=== PATIENT | male | born 1945 | race Caucasian/White ===

== ENCOUNTER 2016-09-26 12:55 | Inpatient (IN) ==
--- NOTE | 2016-09-26 13:04 | Emergency Department Note ---
START Narrative - START START: I examined this patient and my medical decision-making was reviewed with the STEEL CHECKER/PA/Advanced Practice Nurse/Resident Physician. I agree with the documented findings, disposition and treatment plan as described except to the extent set forth below. ED attending note: Patient seen with emergency medicine resident Dr CARMICHAEL. We independently evaluated the patient. We independently had [id number] contact with the patient. Please see a copy of his note for details of the history and physical, evaluation, management and disposition of this emergency Department patient. 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 Patient refused care at the other ED for concerns about "billing issues". Patient here for further evaluation. Patient says although he has had a headache is more concerned about being off balance. No recent medication changes and not on blood thinners. Patient normally walks unassisted over the past several days increasing weakness to the point that he could not get up to go to the bathroom last night because he was falling over". Neurologic examination shows symmetrical bilateral lower extremity about 4+. Normal reflexes. Normal heel pederson and finger to nose. But too weak to gait test. Concerned about posterior cerebral and cerebellar lesions. And also with circulation in the neck. Getting an MRI with and with contrast of the brain and angiogram the neck. Screening labs as well. Providing 45 minutes of critical care services for this patient. Disposition pending.
--- NOTE | 2016-09-26 13:05 | Emergency Department Note ---
Disposition Clinical Impression: History of colon cancer, History of cancer metastatic to brain, Unsteady gait, Unable to ambulate, CLIF (acute kidney injury) Headache Qualifiers: Headache type: unspecified Headache chronicity pattern: acute headache Intractability: not intractable Qualified Code(s): R51 - Headache Leukopenia Qualifiers: Leukopenia type: neutropenia Neutropenia type: unspecified Qualified Code(s): D70.9 - Neutropenia, unspecified Disposition: Admitted As Inpatient Condition: Fair Referrals: NONE,PCP [Non-Partnered Physician] - Forms: ED Satisfaction Letter Headache HPI - General Chief Complaint: ED Headache Stated Complaint: headache/weakness/cancer pt-colon w/mets brain Time Seen by Provider: 09/26/16 13:00 Source: patient, EMS Mode of arrival: EMS Limitations: no limitations Nursing Notes Reviewed: Yes Vital Signs Reviewed: Yes - History of Present Illness HPI Narrative: Patient is a 71-year-old male with past medical history of Parkinson's, colon cancer with metastases to the brain. He currently follows with Dr. Moreno and is underwent radiation and chemotherapy, most recent dosing was last month. He is unsure as to what chemotherapy he is using. He presents today due to headache and unstable gait. Patient states that he is usually able to get around fairly well by himself. Last night, he was trying to get to the bathroom and said that he was stumbling, felt like his legs were weak, was falling into things. He said that this is very unusual for him. He went to the ER at [place] and refuse treatment there and wanted to be transferred to [facility] for further care. He states that during that transfer, he developed a headache in the back of his head. Denies that it was sudden onset. No current numbness , tingling, vision changes, vertigo. He does admit to bilateral lower extremity weakness. Denies any changes in his Parkinson's medication recently. Denies starting any other new medicines. Denies that this has ever happened in the past. Denies any chest pain, shortness of breath, abdominal pain, nausea , vomiting, diarrhea, neck stiffness or pain, fevers. - Related Data Home Medications Medication Instructions Recorded Confirmed Carbidopa/Levodopa ER 50/200 1 each PO TID 04/23/16 09/26/16 [Sinemet ER 50-200 TAB] Ropinirole HCl [Requip] 0.5 mg PO TID 04/23/16 09/26/16 Ondansetron HCl 4 mg PO Q8HR PRN 07/16/16 09/26/16 Sennosides/Docusate Sodium 1 each PO DAILY PRN 07/16/16 09/26/16 [Senna-Docusate Sodium Tablet] Acetaminophen [Pain Relief] 2 tab PO Q4H PRN 08/25/16 09/26/16 Dexamethasone [Decadron] 4 mg PO DAILY 08/25/16 09/26/16 Famotidine [Heartburn Prevention] 20 mg PO HS 08/25/16 09/26/16 Ferrous Sulfate [Iron] 325 mg PO DAILY 08/25/16 09/26/16 Folic Acid 1 mg PO DAILY 08/25/16 09/26/16 Prochlorperazine Maleate 10 mg PO Q8HR PRN 09/26/16 09/26/16 [Compazine] Previous Rx's Medication Instructions Recorded Loperamide [Imodium] 2 mg PO AD PRN #30 capsule 08/04/16 Magic Mouthwash 5 ml PO Q4H PRN #240 ml 08/04/16 Capecitabine [Xeloda] 3 tab PO BID #84 tablet 09/04/16 Allergies Allergy/AdvReac Type Severity Reaction Status Date / Time No Known Allergies Allergy Verified 08/25/16 08:25 All systems ED: reviewed and negative except as stated. Constitutional: Denies: fever, chills Cardiovascular: Denies: chest pain Respiratory: Denies: dyspnea Gastrointestinal: Denies: abdominal pain, nausea, vomiting, diarrhea Musculoskeletal: Denies: back pain, neck pain Neurological: Reports: weakness. Denies: headache, numbness, paresthesias Headache PMH - Past Medical History Medical history: Reports: other (possiblity of parkison) Male Surgical History: Reports: other (Patient has had a remote abdominal surgery for "removal of an ulcer".) Psychiatric history: Reports: no psych history - Social History Smoking Status: Never smoker Alcohol use: Reports: none Drug use: Reports: none Physical Exam - General Limitations: no limitations General appearance: alert, in no apparent distress - Head Head exam: atraumatic, normocephalic, normal inspection, other (No tenderness to palpation of the posterior occiput, no lesions) - Eye Eye exam: Present: normal appearance, PERRL, EOMI - ENT ENT exam: normal exam, normal oropharynx, mucous membranes moist - Neck Neck exam: Present: normal inspection, full ROM, trachea midline. Absent: tenderness, meningismus - Chest Chest inspection: Present: normal inspection, symmetric chest wall rise - Respiratory Respiratory exam: Present: normal lung sounds bilaterally - Cardiovascular Cardiovascular exam: Present: regular rate, normal rhythm, normal heart sounds - Abdominal Exam Abdominal exam: Present: soft, Non-Tender. Absent: tenderness, distention, guarding, rebound, rigidity - Extremities Exam Extremities exam: Present: normal inspection, full ROM. Absent: tenderness, pedal edema - Neurological Exam Neurological exam: Present: alert, oriented X3, CN II-XII intact, other (Mild weakness of bilateral lower extremities, 4 out of 5 strength in hip flexion, dorsiflexion and plantar flexion of both feet bilaterally) - Psychiatric Psychiatric exam: Present: normal affect, normal mood - Skin Skin exam: Present: warm, dry, intact, normal color Course Course Narrative: Vitals stable currently. Physical exam shows no focal neurologic deficits. Mild weakness of bilateral lower extremities, 4 out of 5 strength in hip flexion , dorsiflexion and plantar flexion of both feet bilaterally . Proprioception is intact. Patient currently rates his posterior occiput headache mild. He has declined any medication for headache at this time. He is agreeable with MRI of the head and neck for further assessment, especially since he has brain metastases. We will also obtain basic blood work. 14:31 spoke with patient's , she states that the patient is on a daily oral chemotherapy pill and also has injections/IV chemotherapy. She says that he had his most recent chemotherapy about a week ago. This is different from what the patient had reported. She also reports that the patient uses a walker at home but usually has no difficulty with using walker. She does admit that the patient has had increased work showed a weakness, difficulty with balance over the past 2-3 days. She says that he has had home health in the past but this was recently discontinued about a week ago. She says that she is no longer able to take care of him, especially with his worsening large area weakness. White blood cell count 2.3. Mildly anemic. CLIF present on BMP. Patient currently in MRI. 16:01 MRI the brain shows previously seen mass/lesion. No acute intracranial abnormality. Neck MRA as negative for any evidence of significant stenosis in the vertebral or carotid circulation. Due to difficulty with ambulation, headache, history of cancer with brain mets, will admit to medicine for further care. Brain MRI 09/26/16 13:02 IMPRESSION: Heterogeneously enhancing mass involving the cerebellar vermis, measuring 2.6 x 2.2 x 2.6 cm, mildly decreased in size since the prior study. Interval mildly decreased surrounding vasogenic edema. Findings are likely related to neoplasm with treatment response. No new abnormal intracranial enhancement. 1.5 cm nonenhancing area of T2/FLAIR hyperdensity in the cortical subcortical left frontal lobe, grossly stable. This finding is nonspecific, may be related to old infarction, posttreatment changes and gliosis. Attention to this region on subsequent follow-up is recommended. No acute intracranial abnormality. Mild parenchymal volume loss. Mild chronic microvascular disease. D/ / Cj Londono MD / Cj Londono MD Interpreting Provider: Cj Londono MD Neck MRA 09/26/16 13:04 IMPRESSION: No evidence of significant stenosis or other disease in the vertebral or carotid circulation. D/ / Mee Schofield MD / Mee Schofield MD Interpreting Provider: Mee Schofield MD Vital Signs Temperature 97.8 F 09/26/16 12:55 Pulse Rate 82 09/26/16 12:55 Respiratory Rate 20 09/26/16 12:55 Blood Pressure 124/81 09/26/16 12:55 O2 Sat by Pulse Oximetry 98 09/26/16 12:55 Temperature 97.8 F 09/26/16 12:55 Pulse Rate 92 09/26/16 16:00 Respiratory Rate 18 09/26/16 16:00 Blood Pressure 120/92 09/26/16 16:00 O2 Sat by Pulse Oximetry 97 09/26/16 16:00 Oxygen Delivery Oxygen Delivery Room Air Headache - MDM Narrative Medical decision making narrative: MRI the brain shows previously seen mass/lesion. No acute intracranial abnormality. Neck MRA as negative for any evidence of significant stenosis in the vertebral or carotid circulation. Due to difficulty with ambulation, headache, history of cancer with brain mets, will admit to medicine for further care. - Medical Records Medical records reviewed: Yes I reviewed the patient's medical records. - Lab Data Lab results reviewed: Yes I reviewed the patient's lab results. Result diagrams: 09/26/16 13:22 09/26/16 13:22 Lab Results 09/26/16 09/26/16 09/26/16 Range/Units 13:22 13:22 13:22 WBC 2.3 L (4.3-11.1) K/mcL RBC 4.91 (4.19-5.50) M/mcL Hgb 11.8 L (12.9-16.9) g/dL Hct 38.9 (37.5-50.1) % MCV 79.2 L (83.0-100.0) fL MCH 24.0 L (28.0-33.3) pg MCHC 30.3 L (31.6-35.5) g/dL RDW 29.1 H (11.5-14.5) % Plt Count 365 (140-400) K/mcL MPV 8.4 L (9.4-12.4) fL Seg Neutrophils % 48.0 % Band Neutrophils % 8.0 H (0-4) % Lymphocytes % 42.0 % Monocytes % 2.0 % Neutrophils # 1.3 L (1.6-8.9) K/mcL Lymphocytes # 1.0 (0.6-4.6) K/mcL Monocytes # 0.1 (0.0-1.3) K/mcL Platelet Estimate Normal (Normal) Anisocytosis 1+ A (Not Present) Microcytosis Present A (Not Present) Macrocytosis Present A (Not Present) PT 12.6 H (9.4-12.1) Seconds INR 1.2 APTT 29.2 (26.0-36.0) Seconds Sodium 138 (136-145) mEq/L Potassium 4.2 (3.5-4.5) mEq/L Chloride 103 (98-109) mEq/L Carbon Dioxide 22 (19-29) mEq/L BUN 25 (8-26) mg/dL Creatinine 1.50 H (0.72-1.25) mg/dL Est GFR ( Amer) 56 L (> 60) Est GFR (Non-Af Amer) 46 L (> 60) BUN/Creatinine Ratio 17 (6-26) Glucose 85 (70-99) mg/dL Calculated Osmolality 290 (280-300) Calcium 8.6 (8.6-10.8) mg/dL - Radiology Data Radiology results reviewed: Yes I reviewed the patient's radiology results. Brain MRI 09/26/16 13:02 IMPRESSION: Heterogeneously enhancing mass involving the cerebellar vermis, measuring 2.6 x 2.2 x 2.6 cm, mildly decreased in size since the prior study. Interval mildly decreased surrounding vasogenic edema. Findings are likely related to neoplasm with treatment response. No new abnormal intracranial enhancement. 1.5 cm nonenhancing area of T2/FLAIR hyperdensity in the cortical subcortical left frontal lobe, grossly stable. This finding is nonspecific, may be related to old infarction, posttreatment changes and gliosis. Attention to this region on subsequent follow-up is recommended. No acute intracranial abnormality. Mild parenchymal volume loss. Mild chronic microvascular disease. D/ / Cj Londono MD / Cj Londono MD Interpreting Provider: Cj Londono MD Neck MRA 09/26/16 13:04 IMPRESSION: No evidence of significant stenosis or other disease in the vertebral or carotid circulation. D/ / Mee Schofield MD / Mee Schofield MD Interpreting Provider: Mee Schofield MD - EKG Data EKG attestation: Yes I reviewed and interpreted this EKG. EKG results narrative: 09/26/2016 at 13:10. Normal sinus rhythm. Rate 73. TN 171. QRS 96. QTC 395. Normal axis. No acute ST elevation or depression. No changes from previous EKG on 04/25/2013. S.B.A.R. - S.B.A.R. Situation: Demographics, MOA Background: Presenting Complaint, Relevant PMH, Meds, & Allergies Assessment: Vital Signs, Course and respsone to treatment, Exam Concerns, Patient/Family Expectation, Pertinant Lab Results Recommendation: Barrier(s) to disposition, Recommendation based on pending studies, treatments, or consults Kelly Report Given to: Dr. Molly Mendoza Repor Time: 16:55
[2016-09-26 13:28] LABS: Hematocrit 38.9 % (37.5-50.1); Hemoglobin 11.8 g/dL (12.9-16.9); Mean Corpuscular HGB Conc 30.3 g/dL (31.6-35.5); Mean Corpuscular Volume 79.2 fL (83.0-100.0); Mean Platelet Volume 8.4 fL (9.4-12.4); Platelet Count 365 K/mcL (140-400); Red Blood Count 4.91 M/mcL (4.19-5.50); Red Cell Distribution Width 29.1 % (11.5-14.5)
[2016-09-26 13:34] LABS: INR 1.2; Prothrombin Time 12.6 Seconds (9.4-12.1)
[2016-09-26 13:36] LABS: Activated Partial Thrombo Time 29.2 Seconds (26.0-36.0)
[2016-09-26 13:43] LABS: Calcium 8.6 mg/dL (8.6-10.8); Potassium 4.2 mEq/L (3.5-4.5)
[2016-09-26 13:59] LABS: Monocytes # 0.1 K/mcL (0.0-1.3); Neutrophils # 1.3 K/mcL (1.6-8.9)
[2016-09-26 14:00] LABS: Anisocytosis 1+ (Not Present); Macrocytosis Present (Not Present); Platelet Estimate Normal (Normal)
[2016-09-26 14:01] LABS: Microcytosis Present (Not Present)
[2016-09-26] MEDS ORDERED: 0.9 % Sodium Chloride 1,000 ML IVC ONE (16:04)
[2016-09-26] MEDS ORDERED: Naloxone 0.4 MG/ML INJ IVP PRN (18:01)
[2016-09-26] MEDS ORDERED: Ondansetron 4 MG/2 ML VIAL IVP PRN (18:04)
[2016-09-26] MEDS ORDERED: Ondansetron ODT 4 MG TAB.RAPDIS PO PRN (18:18)
[2016-09-26] MEDS ORDERED: Magic Mouthwash 10 ML UD Cup PO PRN (18:18)
[2016-09-26] MEDS ORDERED: Sennosides/Docusate Sodium TABLET PO PRN (18:18)
[2016-09-26] MEDS ORDERED: *HR* HYDROcodone/Acet 5/325 mg TABLET PO PRN (18:19)
--- NOTE | 2016-09-26 18:24 | Internal Med History&Physical ---
<Lizabeth Menjivar - Last Filed: 09/26/16 18:57> Date of Encounter: 09/26/16 Time of Encounter: 18:21 Assessment and Plan (1) CLIF (acute kidney injury) Current visit: Yes Status: Acute 1 patient is receiving chemotherapy has had poor oral intake. Presently his creatinine is 1.5-. His baseline as 1.08-1.2. We will give gentle IV hydration 2 monitor intake and output and daily weights 3 avoid nephrotoxins (2) Weakness Current visit: Yes Status: Acute Patient has been experiencing generalized weakness and difficulty ambulating. He does have a history of Parkinson's as well as is receiving chemotherapy related to colon cancer with brain metastasis. He has poor oral intake due to nausea. We will give IV fluids 2 patient's high risk for falls. Fall Precautions 3 consult PT OT (3) History of cancer metastatic to brain Current visit: Yes Status: Acute 1 we will continue with patient's current chemotherapy treatment patient will follow-up as outpatient for continued chemotherapy 2 we will consult oncology 3 continue with Decadron (4) Headache Current visit: Yes Status: Acute 1 presently headache has resolved. MRI of head was negative for any new intracranial abnormalities or edema. We will continue with Decadron 2 Tylenol and [place] as needed for pain 3 Zofran as stated for nausea Qualifiers: Headache type: unspecified Headache chronicity pattern: episodic headache Intractability: not intractable Qualified Code(s): R51 - Headache (5) Parkinsons disease Current visit: No Status: Acute 1 we will continue with carbidopa levodopa 2 consult PT/OT 3 fall precautions (6) DVT prophylaxis Current visit: Yes Status: Acute [facility] Internal Medicine - H&P: HPI Chief complaint: weakness JOHN Admitted From: Emergency Dept Plans for Post Hospital Care: Home History of present illness: Mr. 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 In July patient was seen by our oncology group and was sent to [place] due to concern of impending hydrocephaly. While at [place] he underwent radiation treatment as well and was initiated on chemotherapy. He was discharged home and was receiving physical therapy at home. With that he was doing well but on physical therapy was completed patient began to decline. He was weak unable to ambulate. He normally uses a walker to ambulate however he is stumbling he feels as if his legs are not strong enough to support him. He has been experiencing intermittent headaches which began at the base of his skull radiating to the top of his head. There are no vision changes, he is a little bit lightheaded denies numbness tingling vertigo. He does admit to some nausea vomiting and diarrhea however he states it has been occurring ever since he started his chemotherapy. He has had approximate 60 pound weight loss in the past 2 months. He denies any shortness of breath chest pain abdominal pain fevers or chills. He presented to the [place] [facility] refused treatment and requests to be transferred to this facility. According to ER records lab work did reveal the ABC 2.3 potassium is 4.2 creatinine was 1.5 GFR is 46 PT was 12.[address] of head revealed Heterogeneously enhancing mass involving the cerebellar vermis mildly decreased in size since the prior study. Interval mildly decreased surrounding vasogenic edema. No new abnormal intracranial enhancement. He is given IV fluids Patient has been admitted for further workup and evaluation. Presently patient denies any chest pain or shortness of breath. He does not appear to be respiratory distress. His lung sounds are clear. Heart sounds S1 and S2 with no rubs clicks, murmurs noted. Abdomen soft nontender. He denies any headache at this time he is neurologically intact simple commands equal strength in all 4 extremities, cranial nerves II through XII are intact. He is hemodynamically stable at this time.I reviewed this case with Dr Barnes who agrees with plan Past Med Surg Social Fam HX - Past Medical History Medical history: other (possiblity of parkisons) Psychiatric history: no psych history - Past Surgical History Surgical History: other (Patient has had a remote abdominal surgery for " removal of an ulcer".) - Social History Smoking Status: Never smoker Smokeless Tobacco Status: No Alcohol use: none Drug use: none - Family History Sister Hx Family Cancer: Yes (Pancreatic cancer) Internal Medicine - H&P: Meds Carbidopa/Levodopa ER 50/200 [Sinemet ER 50-200 TAB] 1 each PO TID 04/23/16 [ History] Ropinirole HCl [Requip] 0.5 mg PO TID 04/23/16 [History] Ondansetron HCl 4 mg PO Q8HR PRN 07/16/16 [History] Sennosides/Docusate Sodium [Senna-Docusate Sodium Tablet] 1 each PO DAILY PRN [History] Loperamide [Imodium] 2 mg PO AD PRN #30 capsule 08/04/16 [Rx] Magic Mouthwash 5 ml PO Q4H PRN #240 ml 08/04/16 [Rx] Acetaminophen [Pain Relief] 2 tab PO Q4H PRN 08/25/16 [History] Dexamethasone [Decadron] 4 mg PO DAILY 08/25/16 [History] Famotidine [Heartburn Prevention] 20 mg PO HS 08/25/16 [History] Ferrous Sulfate [Iron] 325 mg PO DAILY 08/25/16 [History] Folic Acid 1 mg PO DAILY 08/25/16 [History] Capecitabine [Xeloda] 3 tab PO BID #84 tablet 09/04/16 [Rx] Prochlorperazine Maleate [Compazine] 10 mg PO Q8HR PRN 09/26/16 [History] Allergies No Known Allergies Allergy (Verified 08/25/16 08:25) All Systems PM: A 10-system review of systems was performed and is negative for pertinent findings except as documented above in the HPI. - Constitutional Constitutional: anorexia, fatigue, weakness, weight loss - EENT Eyes: no change in vision, no discharge, no pain, no photophobia Nose, mouth and throat: no dysphagia, no nasal discharge, no neck pain, no sore throat - Cardiovascular Cardiovascular ROS IM: no chest pain, no diaphoresis, no dyspnea, no lightheadedness, no palpitations, no syncope - Respiratory Respiratory: no cough, no dyspnea, no wheezing, no excessive phlegm production - Gastrointestinal Gastrointestinal: diarrhea, nausea, vomiting, no abdominal pain, no hematemesis , no hematochezia, no melena - Musculoskeletal Musculoskeletal ROS IM: no numbness, no tingling - Neurological Neurological ROS: frequent falls, no confusion, no convulsions, no focal weakness, no numbness, no tingling, no tremor(s) - Constitutional Vitals: Temp Pulse Resp BP Pulse Ox 97.8 F 85 20 156/72 98 09/26/16 12:55 09/26/16 17:00 09/26/16 18:05 09/26/16 18:05 09/26/16 17:00 General appearance: Present: cachectic, A&O X 3, answers questions appropriately - Head Head exam: Present: atraumatic, normocephalic - Eye Eye exam: Present: PERRL, conjuntiva pink, sclera anicteric Pupils: Present: PERRL - Neck Neck exam general surgery: Present: supple, trachea midline. Absent: lymphadenopathy - Respiratory Respiratory exam: Present: CTAB. Absent: accessory muscle use, rales, rhonchi, wheezes - Cardiovascular Cardiovascular exam: Present: RRR, +S1, +S2. Absent: diastolic murmur, gallop, rubs, systolic murmur - GI/Abdominal GI/Abdominal exam: Present: normal bowel sounds, soft, no peritoneal signs. Absent: distended, tenderness - Extremities Exam Extremities exam: Present: warm, radial pulses palpable and symetrical. Absent : calf tenderness, cyanotic, pedal edema - Neurological Exam Neurological exam: Present: CN II-XII intact, oriented X3, no focal deficits. Absent: pronater drift, facial droop, speech deficit - Skin Skin exam: Present: dry, intact Internal Med - H&P Results - Labs CBC & Chem 7: 09/26/16 13:22 09/26/16 13:22 - EKG Data Prior EKG available for review: yes When compared to previous EKG: there is no significant change Interpretation IM: normal EKG - Diagnostic Studies Other Images Additional comments: Brain MRI 09/26/16 13:02 IMPRESSION: Heterogeneously enhancing mass involving the cerebellar vermis, measuring 2.6 x 2.2 x 2.6 cm, mildly decreased in size since the prior study. Interval mildly decreased surrounding vasogenic edema. Findings are likely related to neoplasm with treatment response. No new abnormal intracranial enhancement. 1.5 cm nonenhancing area of T2/FLAIR hyperdensity in the cortical subcortical left frontal lobe, grossly stable. This finding is nonspecific, may be related to old infarction, posttreatment changes and gliosis. Attention to this region on subsequent follow-up is recommended. No acute intracranial abnormality. Mild parenchymal volume loss. Mild chronic microvascular disease. D/ / Cj Londono MD / Cj Londono MD Interpreting Provider: Cj Londono MD Neck MRA 09/26/16 13:04 IMPRESSION: No evidence of significant stenosis or other disease in the vertebral or carotid circulation. D/ / Mee Schofield MD / Mee Schofield MD Interpreting Provider: Mee Schofield MD <Inder Barnes - Last Filed: 09/26/16 19:07> Date of Encounter: 09/26/16 Internal Medicine - H&P: HPI History of present illness: Mr. Collado is a 71 year old male All Systems PM: A 10-system review of systems was performed and is negative for pertinent findings except as documented above in the HPI. - Constitutional Vitals: Temp Pulse Resp BP Pulse Ox 98.0 F 98 16 138/82 97 09/26/16 18:49 09/26/16 18:49 09/26/16 18:49 09/26/16 18:49 09/26/16 18:49 Internal Med - H&P Results - Labs CBC & Chem 7: 09/26/16 13:22 09/26/16 13:22 - Attending Attestation I have personally performed a face to face evaluation on this patient and I discussed the assessment and plan with the nurse practitioner. I have reviewed and agree with the documented care plan. History and Exam by me shows: Mr. 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 In July patient was seen by our oncology group and was sent to [place] due to concern of impending hydrocephaly. While at [place] he underwent radiation treatment as well and was initiated on chemotherapy. He was discharged home and was receiving physical therapy at home. With that he was doing well but on physical therapy was completed patient began to decline. He was weak unable to ambulate. He normally uses a walker to ambulate however he is stumbling he feels as if his legs are not strong enough to support him. He has been experiencing intermittent headaches which began at the base of his skull radiating to the top of his head. There are no vision changes, he is a little bit lightheaded denies numbness tingling vertigo. Gen:A, A, O X 3 Chest: DBS b/l basal regions.No crackles, no rales Heart : S1 S2 + , RRR, No murmurs Abd: Soft, NT..Healed surgical scar a.p 1. Generalized weakness / ambulatory dysfunction 2. Severe physical deconditioning 3. Colon cancer with mets in brain PT / OT eval Symptomatic and supportive care resume home med PO steroids Consulted Heme Onc for further eval
[2016-09-26] MEDS: 0.9 % Sodium Chloride 1,000 ML IVC SCH (18:51)
[2016-09-26] MEDS: rOPINIRole 0.25 MG TABLET PO SCH (22:54)
[2016-09-26] MEDS: Carbidopa/Levodopa ER 50/200 TABLET PO SCH (22:54)
[2016-09-26] MEDS: Famotidine 20 MG TABLET PO SCH (22:54)
[2016-09-26] MEDS: CAPECITABINE PO SCH (22:55)
[2016-09-27 01:23] LABS: Hematocrit 35.5 % (37.5-50.1); Hemoglobin 10.5 g/dL (12.9-16.9); Mean Corpuscular HGB Conc 29.6 g/dL (31.6-35.5); Mean Corpuscular Hemoglobin 23.7 pg (28.0-33.3); Mean Corpuscular Volume 80.1 fL (83.0-100.0); Mean Platelet Volume 9.1 fL (9.4-12.4); Nucleated Red Blood Cells 0.9 /100 WBC (0); Platelet Count 341 K/mcL (140-400); Red Blood Count 4.43 M/mcL (4.19-5.50); Red Cell Distribution Width 29.2 % (11.5-14.5)
[2016-09-27 01:37] LABS: BUN/Creatinine Ratio 17 (6-26); Blood Urea Nitrogen 22 mg/dL (8-26); Carbon Dioxide 25 mEq/L (19-29); Chloride 106 mEq/L (98-109); Glucose 122 mg/dL (70-99); Magnesium 1.9 mg/dL (1.6-2.6); Osmolality,Calculated 291 (280-300); Potassium 3.9 mEq/L (3.5-4.5); Sodium 138 mEq/L (136-145); eGFR For African Americans > 60 (> 60); eGFR For Non-African Americans 53 (> 60)
[2016-09-27 02:08] LABS: Eosinophils # 0.2 K/mcL (0.0-0.6); Lymphocytes # 0.9 K/mcL (0.6-4.6); Monocytes # 0.1 K/mcL (0.0-1.3); Neutrophils # 0.9 K/mcL (1.6-8.9)
[2016-09-27 02:09] LABS: Acanthocytes 1+ (Not Present); Anisocytosis 3+ (Not Present); Platelet Clumps Few (Not Present); Platelet Estimate Normal (Normal)
[2016-09-27 02:10] LABS: Ovalocytes 1+ (Not Present); Polychromasia 1+ (Not Present)
[2016-09-27] MEDS: 0.9 % Sodium Chloride 1,000 ML IVC SCH (05:05)
[2016-09-27] MEDS: *HR* Enoxaparin 40 MG/0.4 ML SYRINGE SQ SCH (05:06)
--- NOTE | 2016-09-27 08:22 | Oncology Inp Consult Note ---
Date of Encounter: 09/27/16 Time of Encounter: 07:50 - Data of Consult Patient: known to practice within the last 3 years Consult date: 09/27/16 Requesting Physician: Ayleen Winter MD Primary Care Provider: Esdras Jacob MD - Consult Narrative Reason for consult: Metastatic colon cancer, brain metastasis. History of present illness: Mr. Collado is a 71 year old who is established with my partner Dr. Cherise Moreno for ongoing management of metastatic colon cancer with liver and brain involvement. I have summarized patient's heme/onc background below based on Dr. Moreno's most recent office report from 09/07/16. Diagnosis: Metastatic colon cancer. 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 Colonoscopy by Dr. Tobias 04/24/2016 showed actively bleeding mass in the cecum causing 50% section of the circumference He recommended right hemicolectomy. Biopsy at that time showed tubular adenoma. Meanwhile patient develops an abdominal obstruction symptoms and was seen in [facility] Right hemicolectomy 06/03/2016 showed 6.5 cm tumor grade 2. Proximal distal and radial margins free of tumor. The tumor does invade pericecal fat and into appendix. 3 out of 15 lymph nodes involved. Resection of liver lesion showed metastatic adenocarcinoma PT4B, N1b,M1b stage IV with metastatic adenocarcinoma in the liver and umbilical skin His hemoglobin was around 7 did not improve with iron pills.. IV injectafer one dose on 07/21/2016. Hemoglobin improved to [address] abd/pel from 06/02/16 shows pulmonary hepatic,gastric, mesentric aisha, and peritoneal metastatic disease with trace malignant ascites. 1.4cm x 1.2cm cavitary nodule in the perihilar left lower lobe A PET scan 08/05/2016 posterior fossa brain metastases 3.6 x 2.4 cm. The communicated with him. He is asymptomatic and does not want to go in the hospital. Also it showed worsening of liver metastasis since May 2016 and hypermetabolic peritoneal carcinomatosis. Multiple pulmonary nodules with SUV 4 consistent with lung metastasis also uptake left acetabulum compatible with metastatic disease and he is asymptomatic with that MRI brain done without contrast on 2016 lobulated heterogeneously enhancing mass in the region of left vermis 3 cm surrounding vasogenic edema and effacement of fourth ventricle. Prior infarct left parietal lobe. He was evaluated by Dr. Llanes radiation oncology on 08/10/2016 and refered to [facility] for possible surgery because of the location of tumor According to the patient he received 1 dose of radiation and was given a tapering dose of Decadron. Currently on Decadron 4 mg once a day which we will continue. He denied headaches. Palliative chemotherapy Cycle will be repeated every 3 weeks Xeloda 1.5 g by mouth twice a day day one through 14. (Current creatinine clearance 52. Creatinine has improved to 1.2 on 08/04/2016 from 1.5 range If creatinine clearance drops will reduce Xeloda to 1 g twice a day irinotecan 150 mg/m day 1 Avastin. 7.5 mg per KG D1 Plan is to give chemotherapy until response or toxicity. After 6 months or less May consider maintenance treatment depending on his response Cycle 1 minus xeloda on 08/04/16 due to financial assistance delay. Cycle 2 08/25/2016. He got Xeloda prescription filled and started taking it this morning We will hold Avastin for cycle 2 because of brain metastasis Cycle # 3 09/15/16- irinotecan and oral Xeloda--Avastin held due to brain metastases with vasogenic edema. Patient is currently hospitalized for progressive weakness, worsening headaches associated with acute kidney injury. He reports compliance with Xeloda and has been having frequent loose bowel movements 2-3 times a day for the last 4-5 days. Oncology is consulted re: patient's underlying colon cancer with brain metastasis. On reviewing his records, he was advised of his last visit to increase dexamethasone dose to 4 mg by mouth twice a day from previous of once daily due to persistent headaches attributed to brain metastasis and vasogenic edema. Patient seen and examined at bedside. Chest reviewed for details of ongoing care by hospitalist team which is much appreciated. He reports feeling somewhat better since admission and feels like he is making steady progress back towards his usual baseline. Brain MRI on admission showed decreasing vasogenic edema around his known cerebellar vermis metastasis which has also decreased in size indicating treatment effect. Lab work at presentation showed bicytopenia with WBC of 2.2 and hemoglobin of 10.5 both decreased since his previous from 09/15/16 when he received his last dose of irinotecan and started concurrent cycle of Xeloda. Xeloda is on hold during his hospitalization appropriately. Anemia is macrocytic.. He has not noticed any melena or rectal bleeding. He does have an underlying history of Parkinson's disease for the last few years and is established with neurology for ongoing management. He feels like his disease is controlled with current measures. He reports that he was able to ambulate up until her recent diagnosis of brain metastasis. He subsequently had increasing difficulty. Rest of past medical, surgical, family, social history detailed below and verified with patient today. Review of systems: 12 point review of systems performed with patient and positive findings noted in history of present illness. All other systems are negative: Physical exam: Vital Signs Temp 97.8 F 09/27/16 07:35 Pulse 73 09/27/16 07:35 Resp 18 09/27/16 04:18 BP 115/73 09/27/16 07:35 Pulse Ox 98 09/27/16 07:35 GENERAL: Mildly lethargic. Oriented 3. Chronically ill and frail appearing. Mental Status: Affect appropriate for circumstances HEENT: Sclerae anicteric. No mucositis or thrush. No other oral or pharyngeal lesions or erythema. Skin: No rashes or petechiae. No evidence of skin malignancy Lymph nodes: No cervical, supraclavicular, axillary, or inguinal adenopathy. Lungs: Clear to auscultation bilaterally. Clear to percussion bilaterally. Cardiovascular: Regular rate and rhythm. No gallops, murmurs, or rubs. Abdomen: Soft, nontender; No organomegaly or masses palpable. Extremities: No edema. No calf swelling or tenderness. No joint deformity. Neurologic: Mildly lethargic, Generalized tremors no focal weakness or sensory abnormalities. Results: Laboratory Last Values WBC 2.2 K/mcL (4.3-11.1) L 09/27/16 00:52 RBC 4.43 M/mcL (4.19-5.50) 09/27/16 00:52 Hgb 10.5 g/dL (12.9-16.9) L 09/27/16 00:52 Hct 35.5 % (37.5-50.1) L 09/27/16 00:52 MCV 80.1 fL (83.0-100.0) L 09/27/16 00:52 MCH 23.7 pg (28.0-33.3) L 09/27/16 00:52 MCHC 29.6 g/dL (31.6-35.5) L 09/27/16 00:52 RDW 29.2 % (11.5-14.5) H 09/27/16 00:52 Plt Count 341 K/mcL (140-400) 09/27/16 00:52 MPV 9.1 fL (9.4-12.4) L 09/27/16 00:52 Seg Neutrophils % 36.0 % 09/27/16 00:52 Band Neutrophils % 6.0 % (0-4) H 09/27/16 00:52 Lymphocytes % 40.0 % 09/27/16 00:52 Monocytes % 6.0 % 09/27/16 00:52 Eosinophils % 10.0 % 09/27/16 00:52 Basophils % 2.0 % 09/27/16 00:52 Neutrophils # 0.9 K/mcL (1.6-8.9) L 09/27/16 00:52 Lymphocytes # 0.9 K/mcL (0.6-4.6) 09/27/16 00:52 Monocytes # 0.1 K/mcL (0.0-1.3) 09/27/16 00:52 Eosinophils # 0.2 K/mcL (0.0-0.6) 09/27/16 00:52 Basophils # 0.0 K/mcL (0.0-0.2) 09/27/16 00:52 Nucleated RBCs/100 WBC 0.9 /100 WBC (0) H 09/27/16 00:52 Platelet Estimate Normal (Normal) 09/27/16 00:52 Clumped Platelets Few (Not Present) A 09/27/16 00:52 Polychromasia 1+ (Not Present) A 09/27/16 00:52 Anisocytosis 3+ (Not Present) A 09/27/16 00:52 Microcytosis Present (Not Present) A 09/26/16 13:22 Macrocytosis Present (Not Present) A 09/26/16 13:22 Ovalocytes 1+ (Not Present) A 09/27/16 00:52 Acanthocytes (Spur) 1+ (Not Present) A 09/27/16 00:52 PT 12.6 Seconds (9.4-12.1) H 09/26/16 13:22 INR 1.2 09/26/16 13:22 APTT 29.2 Seconds (26.0-36.0) 09/26/16 13:22 Sodium 138 mEq/L (136-145) 09/27/16 00:52 Potassium 3.9 mEq/L (3.5-4.5) 09/27/16 00:52 Chloride 106 mEq/L (98-109) 09/27/16 00:52 Carbon Dioxide 25 mEq/L (19-29) 09/27/16 00:52 BUN 22 mg/dL (8-26) 09/27/16 00:52 Creatinine 1.33 mg/dL (0.72-1.25) H 09/27/16 00:52 Est GFR ( Amer) > 60 (> 60) 09/27/16 00:52 Est GFR (Non-Af Amer) 53 (> 60) L 09/27/16 00:52 BUN/Creatinine Ratio 17 (6-26) 09/27/16 00:52 Glucose 122 mg/dL (70-99) H 09/27/16 00:52 Calculated Osmolality 291 (280-300) 09/27/16 00:52 Calcium 8.0 mg/dL (8.6-10.8) L 09/27/16 00:52 Magnesium 1.9 mg/dL (1.6-2.6) 09/27/16 00:52 Troponin I 0.02 ng/mL (0-0.03) 09/27/16 00:52 Radiographic studies: I personally reviewed and interpreted patient's most recent imaging studies dated 09/26/16. I discussed the findings with the patient today. Brain MRI 09/26/16 13:02 IMPRESSION: Heterogeneously enhancing mass involving the cerebellar vermis, measuring 2.6 x 2.2 x 2.6 cm, mildly decreased in size since the prior study. Interval mildly decreased surrounding vasogenic edema. Findings are likely related to neoplasm with treatment response. No new abnormal intracranial enhancement. 1.5 cm nonenhancing area of T2/FLAIR hyperdensity in the cortical subcortical left frontal lobe, grossly stable. This finding is nonspecific, may be related to old infarction, posttreatment changes and gliosis. Attention to this region on subsequent follow-up is recommended. No acute intracranial abnormality. Mild parenchymal volume loss. Mild chronic microvascular disease. D/ / Cj Londono MD / Cj Londono MD Interpreting Provider: Cj Londono MD Neck MRA 09/26/16 13:04 IMPRESSION: No evidence of significant stenosis or other disease in the vertebral or carotid circulation. D/ / Mee Schofield MD / Mee Schofield MD Interpreting Provider: Mee Schofield MD Impression/recommendations: Metastatic colorectal cancer: Liver and brain involvement. Currently on treatment with Xeloda plus irinotecan plus Avastin. Started most recent cycle of chemotherapy on 09/15/16. Avastin is on hold due to recent diagnosis of brain metastases with vasogenic edema. He appears to be doing fairly well from a colorectal cancer standpoint is not having any symptoms attributable to colorectal cancer at this time. Encounter for chemotherapy management: Diarrhea is likely related to ongoing Xeloda therapy. Appropriate, he is also followed at this time I would recommend to hold off since he has only a few days left to completing his 2 week cycle of treatment. Anticipated improvement in diarrhea over the coming days. Generalized weakness may be related to recent chemotherapy although I suspect that some contusion from patient's underlying Parkinson's disease. We'll monitor for improvement. I agree with PT OT consult to evaluate and treat. Difficulty walking: Maybe related to underlying Parkinson's disease but they may also be contribution from patient's cerebellar vermis metastasis which is improved on most recent imaging. We'll monitor for continued improvement. He is on steroids for vasogenic edema. Please increase dexamethasone to 4 mg by mouth twice a day. This was most recent recommended dose by Dr. Moreno from 12/15 due to increasing vasogenic edema. This should also help his headaches. Regarding anemia and leukopenia: Likely related to recent Xeloda therapy. Microcytic anemia may also be related to chemotherapy or iron deficiency. Recommend anemia workup including: Reticulocyte count, iron panel, ferritin level, B12, folate, TSH, T4, LDH to look for treatable hematinic deficiencies etc. that may be contributing to patient's cytopenias. We'll follow the patient peripherally with you during this hospitalization. Please call with interval questions. Thank you for your excellent ongoing care for allowing us to see him while in- house. Past Med Surg Social Fam HX - Past Medical History Medical history: other Psychiatric history: no psych history - Past Surgical History Surgical History: other - Social History Smoking Status: Never smoker Smokeless Tobacco Status: No Alcohol use: none Drug use: none - Family History Sister Hx Family Cancer: Yes (Pancreatic cancer) Medications and Allergies Carbidopa/Levodopa ER 50/200 [Sinemet ER 50-200 TAB] 1 each PO TID 04/23/16 [ History] Ropinirole HCl [Requip] 0.5 mg PO TID 04/23/16 [History] Ondansetron HCl 4 mg PO Q8HR PRN 07/16/16 [History] Sennosides/Docusate Sodium [Senna-Docusate Sodium Tablet] 1 each PO DAILY PRN [History] Loperamide [Imodium] 2 mg PO AD PRN #30 capsule 08/04/16 [Rx] Magic Mouthwash 5 ml PO Q4H PRN #240 ml 08/04/16 [Rx] Acetaminophen [Pain Relief] 2 tab PO Q4H PRN 08/25/16 [History] Dexamethasone [Decadron] 4 mg PO DAILY 08/25/16 [History] Famotidine [Heartburn Prevention] 20 mg PO HS 08/25/16 [History] Ferrous Sulfate [Iron] 325 mg PO DAILY 08/25/16 [History] Folic Acid 1 mg PO DAILY 08/25/16 [History] Capecitabine [Xeloda] 3 tab PO BID #84 tablet 09/04/16 [Rx] Prochlorperazine Maleate [Compazine] 10 mg PO Q8HR PRN 09/26/16 [History] Allergies No Known Allergies Allergy (Verified 08/25/16 08:25) Oncology - Exam - Constitutional Vitals: Temp Pulse Resp BP Pulse Ox 97.8 F 73 18 115/73 98 09/27/16 07:35 09/27/16 07:35 09/27/16 04:18 09/27/16 07:35 09/27/16 07:35 Oncology - Results - Labs Labs: Short CBC 09/27/16 Range/Units 00:52 WBC 2.2 L (4.3-11.1) K/mcL Hgb 10.5 L (12.9-16.9) g/dL Hct 35.5 L (37.5-50.1) % Plt Count 341 (140-400) K/mcL Neutrophils # 0.9 L (1.6-8.9) K/mcL BMP 09/27/16 00:52 Sodium 138 Potassium 3.9 Chloride 106 Carbon Dioxide 25 BUN 22 Creatinine 1.33 H Glucose 122 H Calcium 8.0 L Cardiac Enzymes 09/26/16 09/27/16 Range/Units 19:17 00:52 Troponin I 0.01 0.02 (0-0.03) ng/mL Consult Discharge Plan - Plan Referrals: Esdras Jacob MD [Primary Care Provider] -
[2016-09-27 09:34] LABS: Immature Reticulocyte % 36.9 % (11.0-38.0); Retculocyte # 0.04 M/mcL (0.05-0.10); Reticulocyte % 0.9 % (1.6-2.8)
[2016-09-27] MEDS: rOPINIRole 0.25 MG TABLET PO SCH ×3 (10:21→20:23)
[2016-09-27] MEDS: Folic Acid 1 MG TABLET PO SCH (10:21)
[2016-09-27] MEDS: Carbidopa/Levodopa ER 50/200 TABLET PO SCH ×3 (10:21→20:23)
[2016-09-27 10:40] LABS: Thyroid Stimulating Hormone 2.161 mcIU/mL (0.350-4.840)
[2016-09-27] MEDS: CAPECITABINE PO SCH ×2 (11:24→20:20)
[2016-09-27 12:03] LABS: Folate 16.5 ng/mL (7.0-31.4)
--- NOTE | 2016-09-27 13:51 | Internal Med Progress Note ---
Date of Encounter: 09/27/16 Time of Encounter: 13:50 - Assessment and plan (1) Unsteady gait Current Visit: Yes Status: Acute Assessment and plan: Generalized weakness and gait imbalance likely related to dehydration, underlying Parkinson disease and recent initiation of radiation for metastatic colon cancer. IV hydration. Continue supportive care and fall precautions. Physical and occupational therapy evaluation. (2) CLIF (acute kidney injury) Current Visit: Yes Status: Acute Assessment and plan: Likely prerenal. Serum creatinine noted to be improving, continue IV hydration. (3) CKD (chronic kidney disease) Current Visit: Yes Status: Chronic Qualifiers: Chronic kidney disease stage: stage 3 (moderate) Qualified Code(s): N18.3 - Chronic kidney disease, stage 3 (moderate) (4) History of colon cancer Current Visit: Yes Status: Chronic Assessment and plan: Follows with oncology as outpatient. Known to have colon cancer with known metastasis to liver and brain. Oncology consult appreciated. Will resume chemotherapy and radiation after discharge. Recommend anemia workup-noted to have low iron reserve, vitamin B12 and folate levels noted to be normal, TSH and free T4 within normal limits. Hemolysis workup negative. Continue oral ferrous sulfate supplements. (5) History of cancer metastatic to brain Current Visit: Yes Status: Chronic (6) Parkinsons disease Current Visit: Yes Status: Chronic Assessment and plan: Continue Sinemet; PT evaluation; (7) Anemia Current Visit: Yes Status: Chronic Assessment and plan: Acute on chronic microcytic iron deficiency anemia. Workup as above. Continue ferrous sulfate supplements. Qualifiers: Anemia type: iron deficiency Iron deficiency anemia type: unspecified iron deficiency Qualified Code(s): D50.9 - Iron deficiency anemia, unspecified - Subjective Interval history: Reports weakness; no nausea, vomiting, abdominal pain but does have diarrhea, chronic; - Constitutional Vitals: Temp Pulse Resp BP Pulse Ox 97.9 F 79 16 128/74 97 09/27/16 11:28 09/27/16 11:28 09/27/16 11:28 09/27/16 11:28 09/27/16 11:28 General appearance: Present: cachectic, A&O X 3, answers questions appropriately Exam: pill rolling movements of B/L fingers and resting hand tremors - Respiratory Respiratory exam: Present: CTAB. Absent: accessory muscle use, rales, rhonchi, wheezes - Cardiovascular Cardiovascular exam: Present: RRR, +S1, +S2. Absent: diastolic murmur, gallop, rubs, systolic murmur - GI/Abdominal GI/Abdominal exam: Present: normal bowel sounds, soft, no peritoneal signs. Absent: distended, tenderness Internal Medicine: Result - Labs CBC & Chem 7: 09/27/16 00:52 09/27/16 00:52 Labs: Short CBC 09/27/16 Range/Units 00:52 WBC 2.2 L (4.3-11.1) K/mcL Hgb 10.5 L (12.9-16.9) g/dL Hct 35.5 L (37.5-50.1) % Plt Count 341 (140-400) K/mcL Neutrophils # 0.9 L (1.6-8.9) K/mcL BMP 09/27/16 00:52 Sodium 138 Potassium 3.9 Chloride 106 Carbon Dioxide 25 BUN 22 Creatinine 1.33 H Glucose 122 H Calcium 8.0 L Cardiac Enzymes 09/26/16 09/27/16 Range/Units 19:17 00:52 Troponin I 0.01 0.02 (0-0.03) ng/mL - ABG Interpretation ABG results: PT/INR, D-dimer PT 12.6 Seconds (9.4-12.1) H 09/26/16 13:22 Consult Discharge Plan - Plan Referrals: Esdras Jacob MD [Primary Care Provider] -
[2016-09-27] MEDS ORDERED: Mag Hydrox/Al Hydrox/Simeth 30 ML UDC PO PRN (17:22)
--- NOTE | 2016-09-27 18:54 | Electrocardiograph Report ---
[place] [id number] Test Date: 2016-09-26 Pat Name: Jorge L Collado Department: 103 Room: 3B52 Gender: M Observer [employer]: : 1945 Requested By: Esdras Pope Order Number: [id number] Reading MD: Harvinder Almendarez MD Measurements Intervals [place] Rate: 73 P: 51 GA: 171 QRS: 57 QRSD: 96 T: 63 QT: 369 QTc: 395 Interpretive Statements SINUS RHYTHM WITH OCCASIONAL SUPRAVENTRICULAR PREMATURE COMPLEXES Electronically Signed On 09-27-2016 18:52:21 EDT by Harvinder Almendarez MD
[2016-09-27] MEDS: Famotidine 20 MG TABLET PO SCH (20:22)
[2016-09-28 05:43] LABS: Eosinophils % 0.6 %; Hematocrit 34.8 % (37.5-50.1); Hemoglobin 10.7 g/dL (12.9-16.9); Lymphocytes # 0.4 K/mcL (0.6-4.6); Lymphocytes % 23.7 %; Mean Corpuscular HGB Conc 30.7 g/dL (31.6-35.5); Mean Corpuscular Hemoglobin 24.4 pg (28.0-33.3); Mean Corpuscular Volume 79.5 fL (83.0-100.0); Mean Platelet Volume 8.8 fL (9.4-12.4); Monocytes # 0.2 K/mcL (0.0-1.3); Monocytes % 11.2 %; Neutrophils # 1.1 K/mcL (1.6-8.9); Platelet Count 217 K/mcL (140-400); Red Blood Count 4.38 M/mcL (4.19-5.50); Segmented Neutrophils % 64.5 %
[2016-09-28] MEDS: *HR* Enoxaparin 40 MG/0.4 ML SYRINGE SQ SCH (05:53)
[2016-09-28 05:54] LABS: BUN/Creatinine Ratio 15 (6-26); Blood Urea Nitrogen 19 mg/dL (8-26); Calcium 8.5 mg/dL (8.6-10.8); Carbon Dioxide 25 mEq/L (19-29); Chloride 107 mEq/L (98-109); Glucose 110 mg/dL (70-99); Osmolality,Calculated 287 (280-300); Potassium 4.8 mEq/L (3.5-4.5); Sodium 137 mEq/L (136-145); eGFR For African Americans > 60 (> 60); eGFR For Non-African Americans 55 (> 60)
[2016-09-28 06:20] LABS: Anisocytosis 3+ (Not Present); Burr Cells 1+ (Not Present); Platelet Estimate Normal (Normal); Schistocytes 1+ (Not Present)
[2016-09-28 06:21] LABS: Macrocytosis Present (Not Present); Polychromasia 1+ (Not Present)
[2016-09-28] MEDS: Carbidopa/Levodopa ER 50/200 TABLET PO SCH ×3 (08:55→21:02)
[2016-09-28] MEDS: Folic Acid 1 MG TABLET PO SCH (08:55)
[2016-09-28] MEDS: rOPINIRole 0.25 MG TABLET PO SCH ×3 (08:55→21:02)
[2016-09-28] MEDS: CAPECITABINE PO SCH ×2 (12:54→21:02)
--- NOTE | 2016-09-28 13:44 | Oncology Inp Progress Note ---
Date of Encounter: 09/28/16 Time of Encounter: 13:37 (1) History of cancer metastatic to brain Current Visit: Yes Status: Chronic Assessment and plan: - He is currently on Cycle 3 day 15 of Irinotecan and Xeloda. Off of avastin since cycle 2 due to brain mets. Plan to complete 6 months and switch to maintenance if well tolerated and not evidence of disease progression. - He is experienced some myelosupression that requires close monitoring of his blood cell counts. Follow up CBC daily until scott. - He is due for cycle 4 of xeloda/irinotecan in one week. If discharged by then , he will need to follow up with medical oncologist prior to cycle 4. - Upon discharge, please set up an outpatient follow up appointment with radiation oncologist Dr. Llanes. (2) Unable to ambulate Current Visit: Yes Status: Acute Assessment and plan: Due to generalized weakness. Probably multifactorial, with parkinson disease, brain mets and steroid use as the main culprits. - Daily PT. Code(s): R26.2 - Difficulty in walking, not elsewhere classified SNOMED Code(s ): 284707293 (3) Leukopenia Current Visit: Yes Status: Acute Assessment and plan: More likely chemotherapy induced. ANC trending up ( 0.9--> 1.1). Follow up CBC daily. - Other blood cell counts within acceptable range. Qualifiers: Leukopenia type: neutropenia Neutropenia type: secondary to cancer chemotherapy Qualified Code(s): D70.1 - Agranulocytosis secondary to cancer chemotherapy Code(s): D72.819 - Decreased white blood cell count, unspecified SNOMED Code(s ): 51456181 Oncology: Subj Interval history: Patient seen with his at bedside. He is actively being treated with chemotherapy, currently on 14 of cycle 3 of xeloda and irinotecan ( avastin held since cycle 2 due to brain mets). He was admitted due to headaches. Brain MRI showed interval decrease of brain mets along with decreased swelling. Dexa was increased to 4 mg BID with good response. At the time of the visit denies headache, although present early today. He is still experiencing significant generalized weakness and gain unbalance, with parking disease probably playing a role. He and his are expecting that he will be discharged to nursing facility. He is tolerating meals, denies nausea, vomiting. - Constitutional Vitals: Vital Signs Temp Pulse Resp BP Pulse Ox 09/28/16 11:47 97.8 F 87 17 123/78 98 09/28/16 11:05 98.6 F 97 13 116/79 98 09/28/16 07:51 98 F 84 13 118/73 96 09/28/16 07:37 98.0 F 83 16 118/73 96 09/27/16 23:19 98.1 F 76 15 124/56 97 09/27/16 18:38 97.6 F 79 15 130/77 97 09/27/16 15:35 97.6 F 76 16 143/77 97 Intake and Output 09/27/16 09/28/16 09/28/16 23:59 07:59 15:59 Output Total 100 / 100 250 / 250 Balance -100 / -100 -250 / -250 Output: Urine 100 / 100 250 / 250 Other: Stool Size Moderate Large Stool Consistency loose liquid Stool Color Black # Voids 1 # Bowel Movements 1 - Head Head exam: Present: normal inspection - ENT ENT exam: Present: normal exam - Neck Neck exam: Present: normal inspection. Absent: meningismus - Respiratory Respiratory exam: Present: CTAB - Cardiovascular Cardiovascular exam: Present: RRR - GI/Abdominal GI/Abdominal exam: Present: normal bowel sounds - Extremities Exam Extremities exam: Present: normal inspection - Neurological Exam Additional comments: resting and intention tremors. - Psychiatric Psychiatric exam: Present: normal affect Oncology: Obj Data - Labs CBC & Chem 7: 09/28/16 05:09 09/28/16 05:09 Labs: Laboratory Results - last 24 hr 09/28/16 09/28/16 05:09 05:09 WBC 1.7 L RBC 4.38 Hgb 10.7 L Hct 34.8 L MCV 79.5 L MCH 24.4 L MCHC 30.7 L RDW 29.0 H Plt Count 217 MPV 8.8 L Immature Gran % 0.0 Seg Neutrophils % 64.5 Lymphocytes % 23.7 Monocytes % 11.2 Eosinophils % 0.6 Basophils % 0.0 Neutrophils # 1.1 L Lymphocytes # 0.4 L Monocytes # 0.2 Eosinophils # 0.0 Basophils # 0.0 Platelet Estimate Normal Polychromasia 1+ A Anisocytosis 3+ A Macrocytosis Present A Lucas Cells 1+ A Schistocytes 1+ A Sodium 137 Potassium 4.8 H Chloride 107 Carbon Dioxide 25 BUN 19 Creatinine 1.30 H Est GFR ( Amer) > 60 Est GFR (Non-Af Amer) 55 L BUN/Creatinine Ratio 15 Glucose 110 H Calculated Osmolality 287 Calcium 8.5 L - ABG Interpretation ABG results: PT/INR, D-dimer PT 12.6 Seconds (9.4-12.1) H 09/26/16 13:22 Consult Discharge Plan - Plan Referrals: Esdras Jacob MD [Primary Care Provider] - (Web Requested an appointment)
--- NOTE | 2016-09-28 13:44 | Internal Med Progress Note ---
Date of Encounter: 09/28/16 Time of Encounter: 13:43 - Assessment and plan (1) Unsteady gait Current Visit: Yes Status: Acute Assessment and plan: Generalized weakness and gait imbalance likely related to dehydration, underlying Parkinson disease and recent initiation of radiation for metastatic colon cancer. Continue IV hydration. Continue supportive care and fall precautions. Physical and occupational therapy evaluation noted, recommend placement in extended care facility. emergency services professional consulted for the same. Patient's reports getting exhausted from caring for the patient as she has chronic medical conditions as well. Patient and are interested in him being placed in rehabilitation at this time. Palliative care consulted for discussion of goals of care and CODE STATUS given the patient's declining functional status and recent metastatic cancer spread. Patient is currently DNR comfort care arrest/DNI. Patient's is his power of erisa attorney. (2) CLIF (acute kidney injury) Current Visit: Yes Status: Acute Assessment and plan: Likely prerenal. Serum creatinine noted to be improving, continue IV hydration. (3) CKD (chronic kidney disease) Current Visit: Yes Status: Chronic Qualifiers: Chronic kidney disease stage: stage 3 (moderate) Qualified Code(s): N18.3 - Chronic kidney disease, stage 3 (moderate) (4) History of colon cancer Current Visit: Yes Status: Chronic Assessment and plan: Follows with oncology as outpatient. Known to have colon cancer with known metastasis to liver and brain. Oncology follow-up appreciated. Will resume chemotherapy and radiation after discharge. Oncology also recommends scheduling follow-up appointment with radiation oncology at the time of discharge. Patient is noted to have leukopenia, we will give a dose of Neupogen today. 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 Continue ferrous sulfate supplements. Qualifiers: Anemia type: iron deficiency Iron deficiency anemia type: unspecified iron deficiency Qualified Code(s): D50.9 - Iron deficiency anemia, unspecified - Subjective Interval history: Reports loose watery diarrhea, that started today; he does have intermittent diarrhea at home due to chemotherapy. Reports generalized weakness, wants to go to rehab; - Constitutional Vitals: Temp Pulse Resp BP Pulse Ox 97.8 F 87 17 123/78 98 09/28/16 11:47 09/28/16 11:47 09/28/16 11:47 09/28/16 11:47 09/28/16 11:47 General appearance: Present: cachectic, A&O X 3, answers questions appropriately - Respiratory Respiratory exam: Present: CTAB. Absent: accessory muscle use, rales, rhonchi, wheezes - Cardiovascular Cardiovascular exam: Present: RRR, +S1, +S2. Absent: diastolic murmur, gallop, rubs, systolic murmur Internal Medicine: Result - Labs CBC & Chem 7: 09/28/16 05:09 09/28/16 05:09 Labs: Short CBC 09/28/16 Range/Units 05:09 WBC 1.7 L (4.3-11.1) K/mcL Hgb 10.7 L (12.9-16.9) g/dL Hct 34.8 L (37.5-50.1) % Plt Count 217 (140-400) K/mcL Neutrophils # 1.1 L (1.6-8.9) K/mcL BMP 09/28/16 05:09 Sodium 137 Potassium 4.8 H Chloride 107 Carbon Dioxide 25 BUN 19 Creatinine 1.30 H Glucose 110 H Calcium 8.5 L - ABG Interpretation ABG results: PT/INR, D-dimer PT 12.6 Seconds (9.4-12.1) H 09/26/16 13:22 Consult Discharge Plan - Plan Referrals: Esdras Jacob MD [Primary Care Provider] - (Web Requested an appointment)
--- NOTE | 2016-09-28 15:08 | Palliative - Consult Note ---
Date of Encounter: 09/28/16 Time of Encounter: 15:00 - Assessment and Plan (1) Diarrhea Current Visit: Yes Status: Acute Assessment and plan: States has had 3-4 loose stools today - educated that he had Imodium available and instructed him and to inform nursing so they will administer medication. Qualifiers: Diarrhea type: unspecified type Qualified Code(s): R19.7 - Diarrhea, unspecified (2) Cancer related pain Current Visit: No Status: Acute Assessment and plan: Continue [place] PRN. Also has Acetaminophen available if needed. Has not utilized any pain meds as of yet and Comfortable at present. Patient states he is very sensitive to pain medications and was oversedated when prescribed Oxycodone previously. Monitor (3) Nausea Current Visit: Yes Status: Acute Assessment and plan: Continue Antiemetics as ordered. MOnitor. I did remind him and his he had PRN meds available if needed. (4) Counseling regarding advanced care planning and goals of care Current Visit: Yes Status: Acute Assessment and plan: Discussed goals of care with pt/. He is continuing with chemotherapy treatment currently. Oncology noted have been reviewed. expresses that his insurance denies further therapy visits at home and she is struggling caring for him as she has osteoarthritis in right shoulder and COPD. Patient and have 4 daughter between them - one resides in [place], one [facility], and the other two are relatively close by to pt. States she was attempting to get Medicaid approved - has one letter states it was and another that states denied. D/W Raiza Russ - [facility] who will see pt and look into situation. PT/OT here recommend ECF for rehab. He appears to be in observation bed. Patient has already completed his advanced directives at [facility] earlier this year. Sanjuanita is POA and copy is available in [employer]. Discussed code status - pt states he does not desire to be put through CPR/Defib , and states he does not desire intubation. States "why go through that when it would not change the outcome?". States if he is in process of passing away, "just give me a shot and keep me comfortable.". in agreement with pt decision, and code status transitioned to DNR/DNI. State form signed by , POA and copies provided to them as well as placed on medical record here. 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 Collado is a 71 year old male with a history of colon cancer with liver/ brain mets currently on Chemotherapy and treated at the [facility]. He presented with increasing weakness and diarrhea. states that he had [facility], however his insurance stopped paying for the visits, and they discharged him from program. This was confirmed with a call to [facility]. He has been on Chemotherapy since July and is on Decadron for cerebral edema r/t tumor. He also has history of parkinson's disease. He lives with his Sanjuanita, who is present at the bedside. Upon my visit, he is resting with eyes closed, but does awaken to voice. Denies pain at present, c/o profound weakness. Appetite fair, states he has been eating around 50% of meals. Dieticians are following. He states he has had 3-4 loose stools today. Palliative care was consulted for goals of care, code status discussion and symptom management. CC: Ayleen Winter MD Past Med Surg Social Fam HX - Past Medical History Medical history: other (Parkinson's disease) Psychiatric history: no psych history - Past Surgical History Surgical History: other - Social History Smoking Status: Never smoker Smokeless Tobacco Status: No Alcohol use: none Drug use: none - Family History Sister Hx Family Cancer: Yes (Pancreatic cancer) Medications and Allergies Carbidopa/Levodopa ER 50/200 [Sinemet ER 50-200 TAB] 1 each PO TID 04/23/16 [ History] Ropinirole HCl [Requip] 0.5 mg PO TID 04/23/16 [History] Ondansetron HCl 4 mg PO Q8HR PRN 07/16/16 [History] Sennosides/Docusate Sodium [Senna-Docusate Sodium Tablet] 1 each PO DAILY PRN [History] Loperamide [Imodium] 2 mg PO AD PRN #30 capsule 08/04/16 [Rx] Magic Mouthwash 5 ml PO Q4H PRN #240 ml 08/04/16 [Rx] Acetaminophen [Pain Relief] 2 tab PO Q4H PRN 08/25/16 [History] Dexamethasone [Decadron] 4 mg PO DAILY 08/25/16 [History] Famotidine [Heartburn Prevention] 20 mg PO HS 08/25/16 [History] Ferrous Sulfate [Iron] 325 mg PO DAILY 08/25/16 [History] Folic Acid 1 mg PO DAILY 08/25/16 [History] Capecitabine [Xeloda] 3 tab PO BID #84 tablet 09/04/16 [Rx] Prochlorperazine Maleate [Compazine] 10 mg PO Q8HR PRN 09/26/16 [History] Allergies No Known Allergies Allergy (Verified 08/25/16 08:25) All systems: reviewed and no additional remarkable complaints except as stated ( profound weakness, intermittent nausea, diarrhea, tremors) Palliative Care-Exam - Constitutional Vitals: Temp Pulse Resp BP Pulse Ox 97.8 F 87 17 123/78 98 09/28/16 11:47 09/28/16 11:47 09/28/16 11:47 09/28/16 11:47 09/28/16 11:47 General appearance: Present: thin - Head Head Exam: Present: normal inspection, normocephalic - Eye Eye exam: Present: normal appearance, PERRL - Respiratory Respiratory exam: Present: decreased breath sounds, CTAB - Cardiovascular Cardiovascular exam: Present: +S1, +S2 - GI/Abdominal Exam GI/Abdominal exam: Present: normal bowel sounds, soft - Extremities Exam Extremities exam: Present: normal capillary refill, normal inspection - Neurological Exam Neurological exam: Present: alert, oriented X3, strengths equal and symetr throughout Additional comments: generalized weakness - Psychiatric Psychiatric exam: Present: flat affect - Skin Skin exam: Present: dry, pallor, warm Internal Medicine - CN: Reslt - Labs CBC & Chem 7: 09/28/16 05:09 09/28/16 05:09 Labs: Short CBC 09/28/16 Range/Units 05:09 WBC 1.7 L (4.3-11.1) K/mcL Hgb 10.7 L (12.9-16.9) g/dL Hct 34.8 L (37.5-50.1) % Plt Count 217 (140-400) K/mcL Neutrophils # 1.1 L (1.6-8.9) K/mcL BMP 09/28/16 05:09 Sodium 137 Potassium 4.8 H Chloride 107 Carbon Dioxide 25 BUN 19 Creatinine 1.30 H Glucose 110 H Calcium 8.5 L - ABG Interpretation ABG results: PT/INR, D-dimer PT 12.6 Seconds (9.4-12.1) H 09/26/16 13:22 Consult Discharge Plan - Plan Referrals: Esdras Jacob MD [Primary Care Provider] - (Web Requested an appointment) Palliative Quality Palliative Quality: Screen for Code Status: Yes, Screen for Goals of Care: Yes, Screen for Pain: Yes, If Pain Regimen Started, Initiate Bowel Regimen: NA ( diarrhea), Screen for Nausea/Vomitting: Yes Code Status: 09/26/16 18:01 Resuscitation Status: Active [RES] Routine Comment: Resuscitation Status: Full Code 09/28/16 15:02 DNR [Resuscitation Status: Active] [RES] Routine Comment: Resuscitation Status: [id number]
[2016-09-28] MEDS: Famotidine 20 MG TABLET PO SCH (21:02)
[2016-09-29 05:01] LABS: Hematocrit 41.3 % (37.5-50.1); Mean Corpuscular HGB Conc 30.3 g/dL (31.6-35.5); Mean Corpuscular Hemoglobin 23.9 pg (28.0-33.3); Mean Corpuscular Volume 78.8 fL (83.0-100.0); Mean Platelet Volume 8.7 fL (9.4-12.4); Nucleated Red Blood Cells 10.3 /100 WBC (0); Platelet Count 250 K/mcL (140-400); Red Blood Count 5.24 M/mcL (4.19-5.50); Red Cell Distribution Width 29.3 % (11.5-14.5)
[2016-09-29 05:04] LABS: Hemoglobin 12.5 g/dL (12.9-16.9)
[2016-09-29 05:34] LABS: Anisocytosis 1+ (Not Present); Eosinophils # 0.1 K/mcL (0.0-0.6); Lymphocytes # 0.4 K/mcL (0.6-4.6); Monocytes # 0.1 K/mcL (0.0-1.3); Neutrophils # 1.8 K/mcL (1.6-8.9); Platelet Estimate Normal (Normal)
[2016-09-29] MEDS: *HR* Enoxaparin 40 MG/0.4 ML SYRINGE SQ SCH (05:47)
[2016-09-29] MEDS: rOPINIRole 0.25 MG TABLET PO SCH ×3 (09:17→21:49)
[2016-09-29] MEDS: Folic Acid 1 MG TABLET PO SCH (09:17)
[2016-09-29] MEDS: Carbidopa/Levodopa ER 50/200 TABLET PO SCH ×3 (09:17→21:49)
[2016-09-29] MEDS: CAPECITABINE PO SCH ×2 (09:18→21:51)
--- NOTE | 2016-09-29 11:13 | Palliative Progress Note ---
Date of Encounter: 09/29/16 Time of Encounter: 11:10 - Assessment and plan (1) Diarrhea Current Visit: Yes Status: Acute Assessment and plan: Continue Imodium as ordered. I did educate pt so ensure he asks for these with each loose BM. Also spoke with pt primary nurse to please administer as ordered with loose stools. Qualifiers: Diarrhea type: unspecified type Qualified Code(s): R19.7 - Diarrhea, unspecified (2) Cancer related pain Current Visit: No Status: Acute Assessment and plan: Continue Longs PRN. Has not required (3) Nausea Current Visit: Yes Status: Acute Assessment and plan: Continue antiemetics PRN. (4) Counseling regarding advanced care planning and goals of care Current Visit: Yes Status: Acute Assessment and plan: SW notes reviewed. Information being sent to [facility]. PT/OT recommended ECF. Updated pt who is very pleased rehab may be approved. has not arrived as of today. Code status established as DNR/DNI yesterday and state DNR form was completed. 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 States "feels terrible" and continues to have frequent loose stools. Generalized weakness and states "can barely lift head off pillow". Has only had one dose of Imodium last 24 hours. has not arrived yet today - Constitutional Vitals: Abnormal lab results WBC 2.3 K/mcL (4.3-11.1) L 09/29/16 04:28 Hgb 12.5 g/dL (12.9-16.9) L D 09/29/16 04:28 MCV 78.8 fL (83.0-100.0) L 09/29/16 04:28 MCH 23.9 pg (28.0-33.3) L 09/29/16 04:28 MCHC 30.3 g/dL (31.6-35.5) L 09/29/16 04:28 RDW 29.3 % (11.5-14.5) H 09/29/16 04:28 MPV 8.7 fL (9.4-12.4) L 09/29/16 04:28 Reticulocyte # 0.04 M/mcL (0.05-0.10) L 09/27/16 08:56 Band Neutrophils % 22.0 % (0-4) H 09/29/16 04:28 Lymphocytes # 0.4 K/mcL (0.6-4.6) L 09/29/16 04:28 Nucleated RBCs/100 WBC 10.3 /100 WBC (0) H 09/29/16 04:28 Clumped Platelets Few (Not Present) A 09/27/16 00:52 Polychromasia 1+ (Not Present) A 09/28/16 05:09 Anisocytosis 1+ (Not Present) A 09/29/16 04:28 Microcytosis Present (Not Present) A 09/26/16 13:22 Macrocytosis Present (Not Present) A 09/28/16 05:09 Ovalocytes 1+ (Not Present) A 09/27/16 00:52 Lucas Cells 1+ (Not Present) A 09/28/16 05:09 Acanthocytes (Spur) 1+ (Not Present) A 09/27/16 00:52 Schistocytes 1+ (Not Present) A 09/28/16 05:09 Percent Retic 0.9 % (1.6-2.8) L 09/27/16 08:56 PT 12.6 Seconds (9.4-12.1) H 09/26/16 13:22 Potassium 4.8 mEq/L (3.5-4.5) H 09/28/16 05:09 Creatinine 1.30 mg/dL (0.72-1.25) H 09/28/16 05:09 Est GFR (Non-Af Amer) 55 (> 60) L 09/28/16 05:09 Glucose 110 mg/dL (70-99) H 09/28/16 05:09 Calcium 8.5 mg/dL (8.6-10.8) L 09/28/16 05:09 Iron 27 mcg/dL (65-175) L 09/27/16 08:56 % Saturation 15 % (20-55) L 09/27/16 08:56 Transferrin 129 mg/dL (174-364) L 09/27/16 08:56 Ferritin 900 ng/ml (22-275) H 09/27/16 08:56 Vitamin B12 1557 pg/mL (213-816) H 09/27/16 08:56 General appearance: Present: no acute distress - Respiratory Respiratory exam: Present: decreased breath sounds, CTAB - Cardiovascular Cardiovascular exam: Present: +S1, +S2 - GI/Abdominal GI/Abdominal exam: Present: normal bowel sounds, soft - Extremities Exam Extremities exam: Present: normal capillary refill, normal inspection - Neurological Exam Neurological exam: Present: alert, oriented X3, strengths equal and symetr throughout - Psychiatric Psychiatric exam: Present: flat affect - Skin Skin exam: Present: dry, pallor, warm Palliative Quality Palliative Quality: Screen for Code Status: Yes, Screen for Goals of Care: Yes, Screen for Pain: Yes, If Pain Regimen Started, Initiate Bowel Regimen: NA ( diarrhea), Screen for Nausea/Vomitting: Yes Code Status: 09/26/16 18:01 Resuscitation Status: Active [RES] Routine Comment: Resuscitation Status: Full Code 09/28/16 15:02 DNR [Resuscitation Status: Active] [RES] Routine Comment: Resuscitation Status: [id number] - Labs CBC & Chem 7: 09/29/16 04:28 09/28/16 05:09 Labs: Laboratory Results - last 24 hr 09/29/16 04:28 WBC 2.3 L RBC 5.24 Hgb 12.5 L D Hct 41.3 MCV 78.8 L MCH 23.9 L MCHC 30.3 L RDW 29.3 H Plt Count 250 MPV 8.7 L Seg Neutrophils % 58.0 Band Neutrophils % 22.0 H Lymphocytes % 16.0 Monocytes % 2.0 Eosinophils % 2.0 Neutrophils # 1.8 Lymphocytes # 0.4 L Monocytes # 0.1 Eosinophils # 0.1 Nucleated RBCs/100 WBC 10.3 H Platelet Estimate Normal Anisocytosis 1+ A - ABG Interpretation ABG results: PT/INR, D-dimer PT 12.6 Seconds (9.4-12.1) H 09/26/16 13:22 Consult Discharge Plan - Plan Referrals: Esdras Jacob MD [Primary Care Provider] - (Web Requested an appointment)
--- NOTE | 2016-09-29 15:06 | Internal Med Progress Note ---
Date of Encounter: 09/29/16 Time of Encounter: 15:04 - Assessment and plan (1) Unsteady gait Current Visit: Yes Status: Acute Assessment and plan: Generalized weakness and gait imbalance likely related to dehydration, underlying Parkinson disease and recent initiation of radiation for metastatic colon cancer. Continue supportive care and fall precautions. Physical and occupational therapy evaluation noted, recommend placement in extended care facility. director volunteer services consulted for the same. Palliative care on board to discuss goals of care and CODE STATUS given the patient's declining functional status and recent metastatic cancer spread. Patient is currently DNR comfort care arrest/DNI. Patient's is his power of bankruptcy attorney. (2) Diarrhea Current Visit: Yes Status: Acute Assessment and plan: need to r/o C. Diff cont supportive care Qualifiers: Diarrhea type: unspecified type Qualified Code(s): R19.7 - Diarrhea, unspecified (3) CLIF (acute kidney injury) Current Visit: Yes Status: Acute Assessment and plan: Likely pre renal due to dehydration improving..down to 1.3 Cont gentle IV hydration. 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 In July patient was seen by our oncology group and was sent to [facility] due to concern of impending hydrocephaly. While at [facility] he underwent radiation treatment as well and was initiated on chemotherapy. He was discharged home and was receiving physical therapy at home. With that he was doing well but on physical therapy was completed patient began to decline. He was weak unable to ambulate. He normally uses a walker to ambulate however he is stumbling he feels as if his legs are not strong enough to support him. Pt does c/o diarrhea from last few days. No abdominal pain. PO intake is still minimal. Pt is alert, awake and O x 3. Still looks very lethargic / weak and tired - Constitutional Vitals: Temp Pulse Resp BP Pulse Ox 98.2 F 109 16 82/56 91 09/29/16 11:07 09/29/16 11:07 09/29/16 11:07 09/29/16 11:07 09/29/16 11:07 General appearance: Present: cachectic, A&O X 3, answers questions appropriately - Head Head exam: Present: atraumatic, normal inspection - Neck Neck exam general surgery: Present: supple. Absent: lymphadenopathy - Respiratory Respiratory exam: Present: decreased breath sounds. Absent: rales, respiratory distress, rhonchi, wheezes - Cardiovascular Cardiovascular exam: Present: RRR, +S1, +S2. Absent: systolic murmur - GI/Abdominal GI/Abdominal exam: Present: hyperactive bowel sounds, soft. Absent: rebound, rigid - Extremities Exam Extremities exam: Absent: calf tenderness, pedal edema, tenderness - Neurological Exam Neurological exam: Present: alert, oriented X3 - Psychiatric Psychiatric exam: Present: depressed Internal Medicine: Result - Labs CBC & Chem 7: 09/29/16 04:28 09/28/16 05:09 Labs: Short CBC 09/29/16 Range/Units 04:28 WBC 2.3 L (4.3-11.1) K/mcL Hgb 12.5 L D (12.9-16.9) g/dL Hct 41.3 (37.5-50.1) % Plt Count 250 (140-400) K/mcL Neutrophils # 1.8 (1.6-8.9) K/mcL - ABG Interpretation ABG results: PT/INR, D-dimer PT 12.6 Seconds (9.4-12.1) H 09/26/16 13:22 Consult Discharge Plan - Plan Referrals: Esdras Jacob MD [Primary Care Provider] - (Web Requested an appointment)
[2016-09-29] MEDS ORDERED: 0.9 % Sodium Chloride 500 ML IVC ONE (15:59)
[2016-09-29] MEDS: 0.9 % Sodium Chloride 1,000 ML IVC SCH (16:54)
[2016-09-29] MEDS: Acetaminophen 325 MG TABLET PO PRN (17:02)
[2016-09-29] MEDS ORDERED: 0.9 % Sodium Chloride 1,000 ML IV ONE (19:57)
[2016-09-29 20:15] LABS: Bilirubin,Urine Small (Negative); Blood,Urine Negative (Negative); Clarity,Urine Turbid (Clear); Color,Urine Dark Yellow (Yellow); Glucose,Urine (UA) 100 mg/dL (Normal); Ketones,Urine Trace mg/dL (Negative); Leukocyte Esterase,Urine Moderate (Negative); Nitrite,Urine Negative (Negative); PH,Urine 5.5 pH Units (5.0-8.0); Protein,Urine 30 mg/dL (Neg-Trace); Specific Gravity,Urine 1.024 (1.010-1.025); Urobilinogen,Urine Normal (Normal)
[2016-09-29 20:17] LABS: Bacteria,Urine Many per hpf (None-Few); Hyaline Casts,Urine None Seen per lpf (None-Few); Squamous Epithelial Cell,Urine Many per lpf (None-Few)
[2016-09-29 20:35] LABS: RBC,Urine 0-3 per hpf (0-3); Yeast,Urine Few per hpf (None Seen)
[2016-09-29 20:52] LABS: Calcium 8.4 mg/dL (8.6-10.8); Magnesium 1.9 mg/dL (1.6-2.6); Potassium 4.6 mEq/L (3.5-4.5)
[2016-09-29 20:59] LABS: Hemoglobin 12.2 g/dL (12.9-16.9)
[2016-09-29 21:00] LABS: Basophils % 1.3 %; Hematocrit 39.5 % (37.5-50.1); Immature Granulocytes % 7.5 % (0-4); Lymphocytes # 0.3 K/mcL (0.6-4.6); Lymphocytes % 19.4 %; Mean Corpuscular HGB Conc 30.9 g/dL (31.6-35.5); Mean Corpuscular Hemoglobin 24.8 pg (28.0-33.3); Mean Corpuscular Volume 80.3 fL (83.0-100.0); Mean Platelet Volume 9.7 fL (9.4-12.4); Monocytes # 0.1 K/mcL (0.0-1.3); Monocytes % 6.9 %; Nucleated Red Blood Cells 14.4 /100 WBC (0); Platelet Count 194 K/mcL (140-400); Red Blood Count 4.92 M/mcL (4.19-5.50); Red Cell Distribution Width 29.6 % (11.5-14.5); Segmented Neutrophils % 64.9 %
[2016-09-29] MEDS ORDERED: Vancomycin 1,000 MG in D5% in Water 250 ML IVPB SCH ×2 (21:00)
[2016-09-29] MEDS ORDERED: Vancomycin 1,000 MG in D5% in Water 250 ML IVPB ONE (21:30)
[2016-09-29 21:32] LABS: Platelet Estimate Normal (Normal)
[2016-09-29] MEDS: Famotidine 20 MG TABLET PO SCH (21:49)
[2016-09-29] MEDS ORDERED: 0.9 % Sodium Chloride 1,000 ML IVC ONE ×2 (22:28→22:33)
[2016-09-30] MEDS ORDERED: MetroNIDAZOLE 500 MG/100 ML 500 MG/100 ML BAG IVPB SCH
[2016-09-30] MEDS ORDERED: Piperacillin/Tazobactam 3.375 GM in D5% in Water (Mini-Bag+) 100 ML IVPB SCH
[2016-09-30] MEDS: Hydrocortisone Sodium Succ 100 MG/2 ML VIAL IVP SCH ×3 (00:03→16:29)
[2016-09-30] MEDS: 0.9 % Sodium Chloride 1,000 ML IVC SCH ×3 (01:24→21:45)
[2016-09-30] MEDS: Acetaminophen 325 MG TABLET PO PRN (06:13)
[2016-09-30] MEDS: *HR* Enoxaparin 40 MG/0.4 ML SYRINGE SQ SCH (06:13)
[2016-09-30] MEDS: Lactobacillus 1 EACH CAP.SPRINK PO SCH ×4 (08:11→23:05)
[2016-09-30] MEDS: Folic Acid 1 MG TABLET PO SCH (08:11)
[2016-09-30] MEDS: rOPINIRole 0.25 MG TABLET PO SCH ×3 (08:12→23:04)
[2016-09-30] MEDS: Carbidopa/Levodopa ER 50/200 TABLET PO SCH ×3 (08:12→23:05)
[2016-09-30] MEDS: CAPECITABINE PO SCH (08:12)
[2016-09-30 08:14] LABS: Hemoglobin 10.7 g/dL (12.9-16.9)
[2016-09-30 08:17] LABS: Basophils % 0.8 %; Immature Granulocytes % 15.4 % (0-4); Lymphocytes # 0.2 K/mcL (0.6-4.6); Lymphocytes % 17.9 %; Mean Corpuscular HGB Conc 31.5 g/dL (31.6-35.5); Mean Corpuscular Hemoglobin 24.8 pg (28.0-33.3); Mean Corpuscular Volume 78.7 fL (83.0-100.0); Monocytes # 0.1 K/mcL (0.0-1.3); Monocytes % 5.7 %; Neutrophils # 0.7 K/mcL (1.6-8.9); Nucleated Red Blood Cells 14.6 /100 WBC (0); Platelet Count 134 K/mcL (140-400); Red Blood Count 4.32 M/mcL (4.19-5.50); Red Cell Distribution Width 29.6 % (11.5-14.5); Segmented Neutrophils % 60.2 %
[2016-09-30 08:21] LABS: INR 1.4; Prothrombin Time 15.2 Seconds (9.4-12.1)
[2016-09-30 08:33] LABS: Albumin/Globulin Ratio 0.7 (1.1-2.2); Alkaline Phosphatase 106 Units/L (38-126); Aspartate Amino Transferase 16 Units/L (5-34); BUN/Creatinine Ratio 16 (6-26); Bilirubin,Total 0.8 mg/dL (0.2-1.2); Blood Urea Nitrogen 51 mg/dL (8-26); Burr Cells 3+ (Not Present); Calcium 7.7 mg/dL (8.6-10.8); Carbon Dioxide 15 mEq/L (19-29); Chloride 107 mEq/L (98-109); Globulin 2.6 g/dL (2.4-3.5); Glucose 106 mg/dL (70-99); Magnesium 1.6 mg/dL (1.6-2.6); Osmolality,Calculated 288 (280-300); Polychromasia 1+ (Not Present); Potassium 3.9 mEq/L (3.5-4.5); Sodium 132 mEq/L (136-145); Total Protein 4.4 g/dL (6.0-8.3); eGFR For African Americans 24 (> 60); eGFR For Non-African Americans 19 (> 60)
[2016-09-30 08:34] LABS: Alanine Aminotransferase < 6 Units/L (0-55); Albumin 1.8 g/dL (3.5-5.0)
--- NOTE | 2016-09-30 10:49 | Oncology Inp Progress Note ---
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 Off of avastin since cycle 2 due to brain mets. - I explained to his family that in view of his active infection (PNA) and poor performance status chemotherapy is not a consideration at this time. They are aware that a decision about whether or not chemotherapy ( or immunotherapy) will be an option in the future, will depend of his clinical progression. Upon discharge he will need to follow up with his primary oncologist at the office to discuss further management. They were explained that if his condition deteriorates significantly during the course of the current hospitalization, a hospice/comfort care approach would not be unreasonable. - His ANC has dropped to 0.7, probably due to poor bone marrow reserve and possible infection. He was started today empirically in zosyn /flagyl. C diff assay ordered due to persistent diarrhea. CT scans revealed mostly stable metastatic lesions, with evidence of disease progression at the thoracic levels ( pulmonary nodes). Scans revealed evidence of PNA - Consider neupogen 300 mcg daily and discontinue once ANC is above 1000 for 2 consecutive days. (2) Unable to ambulate Current Visit: Yes Status: Acute Assessment and plan: Due to generalized weakness. Probably multifactorial, with parkinson disease, brain mets and steroid use as the main culprits. Now worse due to sepsis/PNA. Code(s): R26.2 - Difficulty in walking, not elsewhere classified SNOMED Code(s ): 855547907 (3) Leukopenia Current Visit: Yes Status: Acute Assessment and plan: More likely due to a combination of chemotherapy and ongoing acute infection/ sepsis. Start neupogen 300 mcg daily and discontinue once ANC is above 1000 for 2 consecutive days. Qualifiers: Leukopenia type: neutropenia Neutropenia type: secondary to cancer chemotherapy Qualified Code(s): D70.1 - Agranulocytosis secondary to cancer chemotherapy Code(s): D72.819 - Decreased white blood cell count, unspecified SNOMED Code(s ): 16111157 Oncology: Subj Interval history: I attempted to see patient, but not present in his room, he was taken outside to complete test. Started on zosyn and flagyl empirically. Neutropenia got worse, down to 0.7. Experiencing diarrhea, he received imodium around 8 AM. Family present in the room. addendum: Patient seen at the bedside with his family. He denies, but reports being concerned about the ongoing clinical issues. He is going to be transferred to ICU for management with pressures for management of sepsis. Currently on broad spectrum antibiotics. He and his family are aware that his situation is critical and understand that at this time in view of his acute issues/poor PS, chemotherapy is not an option. - Constitutional Vitals: Vital Signs Pulse Resp BP Pulse Ox 09/30/16 10:11 95 20 70/42 93 09/30/16 08:12 90/60 Intake and Output 09/29/16 09/30/16 09/30/16 23:59 07:59 15:59 Other: Stool Size Moderate Stool Consistency liquid Stool Color Yellow Green # Bowel Movement Diapers 1 - Head Head exam: Present: normal inspection - Respiratory Respiratory exam: Present: rales - Cardiovascular Cardiovascular exam: Present: +S1 - GI/Abdominal GI/Abdominal exam: Present: normal bowel sounds. Absent: mass - Extremities Exam Extremities exam: Absent: tenderness - Neurological Exam Neurological exam: Present: oriented X3 - Psychiatric Psychiatric exam: Present: anxious Oncology: Obj Data - Labs CBC & Chem 7: 09/30/16 08:06 09/30/16 08:06 Labs: Laboratory Results - last 24 hr 09/30/16 09/30/16 09/30/16 08:06 08:06 08:06 WBC 1.2 L RBC 4.32 Hgb 10.7 L D Hct 34.0 L MCV 78.7 L MCH 24.8 L MCHC 31.5 L RDW 29.6 H Plt Count 134 L MPV 9.0 L Immature Gran % 15.4 H Seg Neutrophils % 60.2 Lymphocytes % 17.9 Monocytes % 5.7 Eosinophils % 0.0 Basophils % 0.8 Neutrophils # 0.7 L Lymphocytes # 0.2 L Monocytes # 0.1 Eosinophils # 0.0 Basophils # 0.0 Nucleated RBCs/100 WBC 14.6 H Polychromasia 1+ A [place] Cells 3+ A PT 15.2 H INR 1.4 Sodium 132 L Potassium 3.9 Chloride 107 Carbon Dioxide 15 L BUN 51 H Creatinine 3.19 H Est GFR ( Amer) 24 L Est GFR (Non-Af Amer) 19 L BUN/Creatinine Ratio 16 Glucose 106 H Calculated Osmolality 288 Lactic Acid Calcium 7.7 L Magnesium 1.6 Total Bilirubin 0.8 AST 16 ALT < 6 Alkaline Phosphatase 106 Serum Total Protein 4.4 L Albumin 1.8 L Globulin 2.6 Albumin/Globulin Ratio 0.7 L 09/30/16 08:06 WBC RBC Hgb Hct MCV MCH MCHC RDW Plt Count MPV Immature Gran % Seg Neutrophils % Lymphocytes % Monocytes % Eosinophils % Basophils % Neutrophils # Lymphocytes # Monocytes # Eosinophils # Basophils # Nucleated RBCs/100 WBC Polychromasia [place] Cells PT INR Sodium Potassium Chloride Carbon Dioxide BUN Creatinine Est GFR ( Amer) Est GFR (Non-Af Amer) BUN/Creatinine Ratio Glucose Calculated Osmolality Lactic Acid 2.0 Calcium Magnesium Total Bilirubin AST ALT Alkaline Phosphatase Serum Total Protein Albumin Globulin Albumin/Globulin Ratio - ABG Interpretation ABG results: PT/INR, D-dimer PT 15.2 Seconds (9.4-12.1) H 09/30/16 08:06 Consult Discharge Plan - Plan Referrals: Esdras Jacob MD [Primary Care Provider] - (Web Requested an appointment)
--- NOTE | 2016-09-30 11:24 | Palliative Progress Note ---
Date of Encounter: 09/30/16 Time of Encounter: 10:45 - Assessment and plan (1) Diarrhea Current Visit: Yes Status: Acute Assessment and plan: C-diff neg. Continues on Imodium. Received x6 last 24 hours. D/W rounding oncologist. His last dose of Xeloda for this round of chemo should have been Wednesday. He has still been receiving. Now discontinued. Hopefully diarrhea will decrease Qualifiers: Diarrhea type: unspecified type Qualified Code(s): R19.7 - Diarrhea, unspecified (2) Cancer related pain Current Visit: No Status: Acute Assessment and plan: Continue [place] if needed. He has not utilized and has denied pain to this point. (3) Nausea Current Visit: Yes Status: Acute (4) Counseling regarding advanced care planning and goals of care Current Visit: Yes Status: Acute Assessment and plan: Patient with deterioration last 18 hours. Discussion with and daughter at bedside. He has other family coming in later today and daughter arriving from [place] later today. Discussed aggressiveness of care - that if fluid boluses and current treatment for suspected sepsis are not effective, and they still desire aggressive treatment, most likely next step would be transfer to ICU/ central venous access and pressors. Discussed risks involved. struggling with decisions and states that up til Wednesday, Jorge L had wanted to be a full code and wanted "everything done". We revisited his discussion on Wednesday, that he did not desire intubation/cpr/defib and code status change which she acknowledged. Also spoke with that rounding oncologist aware of his current condition, and that unless his performance status improves, he may not be a candidate for further palliative chemotherapy. Awaiting CT results and monitor. Will plan on meeting with all family tomorrow when they arrive in town to further discuss goals of care. 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 Some mental status changes as well with confusion and some hallucinating. Cultures have been ordered and pt just returned from CT scan. - Constitutional Vitals: Abnormal lab results WBC 1.2 K/mcL (4.3-11.1) L 09/30/16 08:06 Hgb 10.7 g/dL (12.9-16.9) L D 09/30/16 08:06 Hct 34.0 % (37.5-50.1) L 09/30/16 08:06 MCV 78.7 fL (83.0-100.0) L 09/30/16 08:06 MCH 24.8 pg (28.0-33.3) L 09/30/16 08:06 MCHC 31.5 g/dL (31.6-35.5) L 09/30/16 08:06 RDW 29.6 % (11.5-14.5) H 09/30/16 08:06 Plt Count 134 K/mcL (140-400) L 09/30/16 08:06 MPV 9.0 fL (9.4-12.4) L 09/30/16 08:06 Reticulocyte # 0.04 M/mcL (0.05-0.10) L 09/27/16 08:56 Immature Gran % 15.4 % (0-4) H 09/30/16 08:06 Band Neutrophils % 22.0 % (0-4) H 09/29/16 04:28 Neutrophils # 0.7 K/mcL (1.6-8.9) L 09/30/16 08:06 Lymphocytes # 0.2 K/mcL (0.6-4.6) L 09/30/16 08:06 Nucleated RBCs/100 WBC 14.6 /100 WBC (0) H 09/30/16 08:06 Clumped Platelets Few (Not Present) A 09/27/16 00:52 Polychromasia 1+ (Not Present) A 09/30/16 08:06 Anisocytosis 1+ (Not Present) A 09/29/16 04:28 Microcytosis Present (Not Present) A 09/26/16 13:22 Macrocytosis Present (Not Present) A 09/28/16 05:09 Ovalocytes 1+ (Not Present) A 09/27/16 00:52 [place] Cells 3+ (Not Present) A 09/30/16 08:06 Acanthocytes (Spur) 1+ (Not Present) A 09/27/16 00:52 Schistocytes 1+ (Not Present) A 09/28/16 05:09 Percent Retic 0.9 % (1.6-2.8) L 09/27/16 08:56 PT 15.2 Seconds (9.4-12.1) H 09/30/16 08:06 Sodium 132 mEq/L (136-145) L 09/30/16 08:06 Carbon Dioxide 15 mEq/L (19-29) L 09/30/16 08:06 BUN 51 mg/dL (8-26) H 09/30/16 08:06 Creatinine 3.19 mg/dL (0.72-1.25) H 09/30/16 08:06 Est GFR ( Amer) 24 (> 60) L 09/30/16 08:06 Est GFR (Non-Af Amer) 19 (> 60) L 09/30/16 08:06 Glucose 106 mg/dL (70-99) H 09/30/16 08:06 Calcium 7.7 mg/dL (8.6-10.8) L 09/30/16 08:06 Iron 27 mcg/dL (65-175) L 09/27/16 08:56 % Saturation 15 % (20-55) L 09/27/16 08:56 Transferrin 129 mg/dL (174-364) L 09/27/16 08:56 Ferritin 900 ng/ml (22-275) H 09/27/16 08:56 Serum Total Protein 4.4 g/dL (6.0-8.3) L 09/30/16 08:06 Albumin 1.8 g/dL (3.5-5.0) L 09/30/16 08:06 Albumin/Globulin Ratio 0.7 (1.1-2.2) L 09/30/16 08:06 Vitamin B12 1557 pg/mL (213-816) H 09/27/16 08:56 Urine Clarity Turbid (Clear) A 09/29/16 20:00 Urine Protein 30 mg/dL (Neg-Trace) H 09/29/16 20:00 Urine Glucose (UA) 100 mg/dL (Normal) H 09/29/16 20:00 Urine Ketones Trace mg/dL (Negative) H 09/29/16 20:00 Urine Bilirubin Small (Negative) H 09/29/16 20:00 Ur Leukocyte Esterase Moderate (Negative) H 09/29/16 20:00 Urine Microscopic WBC 5-15 per hpf (0-3) H 09/29/16 20:00 Ur Squamous Epith Cells Many per lpf (None-Few) H 09/29/16 20:00 Urine Bacteria Many per hpf (None-Few) H 09/29/16 20:00 Urine Yeast Few per hpf (None Seen) H 09/29/16 20:00 General appearance: Present: no acute distress - Respiratory Additional comments: Rales bilateral lower lobes posteriorally - Cardiovascular Cardiovascular exam: Present: tachycardia - GI/Abdominal GI/Abdominal exam: Present: normal bowel sounds, soft - Extremities Exam Extremities exam: Present: normal capillary refill, normal inspection - Psychiatric Psychiatric exam: Present: flat affect Palliative Quality Palliative Quality: Screen for Code Status: Yes, Screen for Goals of Care: Yes, Screen for Pain: Yes, If Pain Regimen Started, Initiate Bowel Regimen: NA ( diarrhea), Screen for Nausea/Vomitting: Yes - Labs CBC & Chem 7: 09/30/16 08:06 09/30/16 08:06 Labs: Laboratory Results - last 24 hr 09/30/16 09/30/16 09/30/16 08:06 08:06 08:06 WBC 1.2 L RBC 4.32 Hgb 10.7 L D Hct 34.0 L MCV 78.7 L MCH 24.8 L MCHC 31.5 L RDW 29.6 H Plt Count 134 L MPV 9.0 L Immature Gran % 15.4 H Seg Neutrophils % 60.2 Lymphocytes % 17.9 Monocytes % 5.7 Eosinophils % 0.0 Basophils % 0.8 Neutrophils # 0.7 L Lymphocytes # 0.2 L Monocytes # 0.1 Eosinophils # 0.0 Basophils # 0.0 Nucleated RBCs/100 WBC 14.6 H Polychromasia 1+ A [place] Cells 3+ A PT 15.2 H INR 1.4 Sodium 132 L Potassium 3.9 Chloride 107 Carbon Dioxide 15 L BUN 51 H Creatinine 3.19 H Est GFR ( Amer) 24 L Est GFR (Non-Af Amer) 19 L BUN/Creatinine Ratio 16 Glucose 106 H Calculated Osmolality 288 Lactic Acid Calcium 7.7 L Magnesium 1.6 Total Bilirubin 0.8 AST 16 ALT < 6 Alkaline Phosphatase 106 Serum Total Protein 4.4 L Albumin 1.8 L Globulin 2.6 Albumin/Globulin Ratio 0.7 L 09/30/16 08:06 WBC RBC Hgb Hct MCV MCH MCHC RDW Plt Count MPV Immature Gran % Seg Neutrophils % Lymphocytes % Monocytes % Eosinophils % Basophils % Neutrophils # Lymphocytes # Monocytes # Eosinophils # Basophils # Nucleated RBCs/100 WBC Polychromasia [place] Cells PT INR Sodium Potassium Chloride Carbon Dioxide BUN Creatinine Est GFR ( Amer) Est GFR (Non-Af Amer) BUN/Creatinine Ratio Glucose Calculated Osmolality Lactic Acid 2.0 Calcium Magnesium Total Bilirubin AST ALT Alkaline Phosphatase Serum Total Protein Albumin Globulin Albumin/Globulin Ratio - ABG Interpretation ABG results: PT/INR, D-dimer PT 15.2 Seconds (9.4-12.1) H 09/30/16 08:06 Consult Discharge Plan - Plan Referrals: Edsras Jacob MD [Primary Care Provider] - (Web Requested an appointment)
[2016-09-30] MEDS: Piperacillin/Tazobactam 3.375 GM in D5% in Water (Mini-Bag+) 100 ML IVPB SCH (12:51)
--- NOTE | 2016-09-30 14:07 | Internal Med Progress Note ---
Date of Encounter: 09/30/16 Time of Encounter: 08:00 - Assessment and plan (1) History of colon cancer Current Visit: Yes Status: Chronic Assessment and plan: 1. Septic shock 2. RLL Aspiration pneumonia 3. Acute hypoxic respiratory failure Reviewed his CXR - showing RLL PNA and multiple lung nodule Will cont broad spec abx - Zosyn and Vancomycin will cont aggressive IV hydration Sent for blood cx last night Ordered CT of Chest, Abd and Pelvis - showed RLL PNA, Acute enteritis - Small bowel wall thickening, New Rt hydronephrosis with mid rt ureter tethering by scarring / carcinomatosis. Progression of metastatic disease with multiple lung nodule, multi focal liver metastases and peritoneal carcinomatosis His ANC @ 720 Talked to pt's about CT findings and his septic shock She would like to proceed with aggressive care for now with IV abx, IV Vasopressors and ICU transfer if needed for further care however she still wants to keep him DNR / DNI I spoke to Critical care doctor Dr. Coreas about this, he will come and assess him first (2) Diarrhea Current Visit: Yes Status: Acute Assessment and plan: C. Diff - Negative cont supportive care Qualifiers: Qualified Code(s): R19.7 - Diarrhea, unspecified (3) CLIF (acute kidney injury) Current Visit: Yes Status: Acute Assessment and plan: due to dehydration, hypovolemia and septic shock worsening Cr now cont aggressive hydration Reviewed CT of Abd / Pelvis - showing Rt hydronephrosis unable to place foey catheter due to BPH will consult Urologist (4) Unsteady gait Current Visit: Yes Status: Acute Assessment and plan: Generalized weakness and gait imbalance likely related to dehydration, underlying Parkinson disease and recent initiation of radiation for metastatic colon cancer. Continue supportive care and fall precautions. Physical and occupational therapy evaluation noted, recommend placement in extended care facility. dietary services director consulted for the same. Palliative care on board to discuss goals of care and CODE STATUS given the patient's declining functional status and recent metastatic cancer spread. Patient is currently DNR comfort care arrest/DNI. Patient's is his power of traffic law attorney. 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 In July patient was seen by our oncology group and was sent to [facility] due to concern of impending hydrocephaly. While at [facility] he underwent radiation treatment as well and was initiated on chemotherapy. He was discharged home and was receiving physical therapy at home. With that he was doing well but on physical therapy was completed patient began to decline. He was weak unable to ambulate. He normally uses a walker to ambulate however he is stumbling he feels as if his legs are not strong enough to support him. Pt does c/o diarrhea from last few days. No abdominal pain. PO intake is still minimal. Pt is alert, awake and O x 3. Still looks very lethargic / weak and tired. Looks confused today. He did have severe hypotension with hypoxic respiratory distress since last night. - Constitutional Vitals: Temp Pulse Resp BP Pulse Ox 97.8 F 95 20 60/40 97 09/30/16 11:43 09/30/16 12:12 09/30/16 11:43 09/30/16 12:12 09/30/16 11:43 General appearance: Present: cachectic, mild distress, A&O X 3, answers questions appropriately - Head Head exam: Present: atraumatic, normal inspection - Neck Neck exam general surgery: Present: supple. Absent: tenderness, thyromegaly - Respiratory Respiratory exam: Present: decreased breath sounds, rhonchi, wheezes. Absent: stridor - Cardiovascular Cardiovascular exam: Present: +S1, +S2, tachycardia. Absent: gallop, systolic murmur - GI/Abdominal GI/Abdominal exam: Present: hyperactive bowel sounds, soft. Absent: rebound, rigid, tenderness - Extremities Exam Extremities exam: Absent: calf tenderness, pedal edema, tenderness - Neurological Exam Neurological exam: Present: altered, oriented X3 - Skin Skin exam: Present: dry, pallor Internal Medicine: Result - Labs CBC & Chem 7: 09/30/16 08:06 09/30/16 08:06 Labs: Short CBC 09/30/16 Range/Units 08:06 WBC 1.2 L (4.3-11.1) K/mcL Hgb 10.7 L D (12.9-16.9) g/dL Hct 34.0 L (37.5-50.1) % Plt Count 134 L (140-400) K/mcL Neutrophils # 0.7 L (1.6-8.9) K/mcL BMP 09/30/16 08:06 Sodium 132 L Potassium 3.9 Chloride 107 Carbon Dioxide 15 L BUN 51 H Creatinine 3.19 H Glucose 106 H Calcium 7.7 L Liver Function 09/30/16 Range/Units 08:06 Total Bilirubin 0.8 (0.2-1.2) mg/dL AST 16 (5-34) Units/L ALT < 6 (0-55) Units/L Alkaline Phosphatase 106 (38-126) Units/L Albumin 1.8 L (3.5-5.0) g/dL - ABG Interpretation ABG results: PT/INR, D-dimer PT 15.2 Seconds (9.4-12.1) H 09/30/16 08:06 - Impressions Impressions Abdomen/Pelvis CT 09/30/16 08:03 IMPRESSION: 1. Right lower lobe pneumonia. 2. Interval appearance since July 2016 of acute to subacute fractures involving the right 8th and 9th ribs. Correlate with focal trauma. Pathologic fractures cannot be excluded. 3. New wall thickening of the presumed small bowel which is nonspecific and may represent enteritis. No obstruction. 4. New mild right hydronephrosis secondary to tethering of the mid right ureter by scarring/carcinomatosis. 5. Progression of metastatic disease with multiple new pulmonary nodules, however, the larger nodules seen on CT dated 08/05/2016 are not significantly changed in size. 6. Grossly unchanged appearance of multifocal liver metastases. 7. Improved but persistent peritoneal carcinomatosis. 8. Sclerosis of the left superior pubic ramus corresponding to the hypermetabolic activity on prior PET/CT. Finding likely represents response to treatment. 9. Fluid throughout the remaining colon, compatible with diarrhea. D/ / 09/30/2016 12:27:20 Radha Roberts MD / mi Interpreting Provider: Radha Roberts MD Chest CT 09/30/16 08:03 IMPRESSION: 1. Right lower lobe pneumonia. 2. Interval appearance since July 2016 of acute to subacute fractures involving the right 8th and 9th ribs. Correlate with focal trauma. Pathologic fractures cannot be excluded. 3. New wall thickening of the presumed small bowel which is nonspecific and may represent enteritis. No obstruction. 4. New mild right hydronephrosis secondary to tethering of the mid right ureter by scarring/carcinomatosis. 5. Progression of metastatic disease with multiple new pulmonary nodules, however, the larger nodules seen on CT dated 08/05/2016 are not significantly changed in size. 6. Grossly unchanged appearance of multifocal liver metastases. 7. Improved but persistent peritoneal carcinomatosis. 8. Sclerosis of the left superior pubic ramus corresponding to the hypermetabolic activity on prior PET/CT. Finding likely represents response to treatment. 9. Fluid throughout the remaining colon, compatible with diarrhea. D/ / 09/30/2016 12:27:20 Radha Roberts MD / mi Interpreting Provider: Radha Roberts MD Consult Discharge Plan - Plan Referrals: Esdras Jacob MD [Primary Care Provider] - (Web Requested an appointment)
--- NOTE | 2016-09-30 15:12 | Pulmonology Consult Note ---
<Esdras Pope - Last Filed: 09/30/16 16:58> Date of Encounter: 09/30/16 Time of Encounter: 15:08 Assessment and Plan (1) Severe sepsis Current Visit: Yes Status: Acute Severe sepsis with tachypnea, leukopenia, hypertension in the setting of colon cancer with metastasis to multiple organs, chemotherapy, right lower lobe pneumonia. Continue Zosyn and vancomycin. Aggressive IV hydration with NS boluses, levophed titration PRN Blood cultures pending Palliative care and I have discussed goals of care with the patient. They have made the patient DNR/DNR. However, they do want aggressive blood pressure care this time. (2) History of colon cancer Current Visit: Yes Status: Chronic Currently being followed by oncology. Appreciate recs. For now, patient and wished to continue aggressive cancer treatment as tolerated and as recommended by oncology. 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 Patient currently on vancomycin and Zosyn. Qualifiers: Pneumonia type: due to unspecified organism Qualified Code(s): J18.1 - Lobar pneumonia, unspecified organism (5) Leukopenia Current Visit: Yes Status: Acute Secondary to chemotherapy. Will continue to monitor. On empiric antibiotics of vancomycin, zosyn for pneumonia. Also given one dose of metronidazole by hospitalist team. Qualifiers: Leukopenia type: neutropenia Neutropenia type: secondary to cancer chemotherapy Qualified Code(s): D70.1 - Agranulocytosis secondary to cancer chemotherapy (6) CLIF (acute kidney injury) Current Visit: Yes Status: Acute Secondary to dehydration and hypovolemia in setting of septic shock Will continue hydration with 2L NS bolus Patient has right hydronephrosis on CT scan and BPH with difficulty passing pearce by floor nursing staff, urology consulted by hospitalist team. (7) Unable to ambulate Current Visit: Yes Status: Acute Multifactoral generalized weakness from metastatic cancer, chemotherapy, dehydration, generalized muscle deconditioning, Parkinsons. Continue supportive care PT/OT consulted Palliative care on board to discuss goals of care and CODE STATUS. Patient is confirmed DNR/DNI. Patient's is POA (8) Diarrhea Current Visit: Yes Status: Acute Supportive care at this time with fluids. C diff negative Qualifiers: Diarrhea type: unspecified type Qualified Code(s): R19.7 - Diarrhea, unspecified (9) Parkinsons disease Current Visit: Yes Status: Chronic Continue Sinemet home dose (10) DVT prophylaxis Current Visit: Yes Status: Acute [id number] SQ daily History of Present Illness Consult date: 09/30/16 Requesting physician: Inder Barnes Chief complaint: Hypotension History of present illness: Patient is a 71-year-old male with past medical history of colon cancer with metastases to the brain, Parkinson's disease . He follows with [facility] for chemotherapy and radiation. He presented originally to the ER due to inability to ambulate, unsteady gait. He had an MRI in the ER that showed brain metastases that were near stable and no other acute intracranial abnormality. Physical exam at that time showed bilateral lower extremity weakness. Patient was found to be anemic, leukopenic, had CLIF. Patient was admitted to the floor for further care. During stay, patient has had poor oral intake. He has had a reported 60 pound weight loss for the past 2 months. Physical therapy and occupational therapy consults. Since admission, he has been treated for pneumonia as well. He is currently on Zosyn and Flagyl empirically. He has also been seen by oncology during his stay. He is currently on cycle days for 17 of chemotherapy medications. He was discussed with the patient by the oncologist according to notes that if his current condition and continued to decline, consideration of hospice/comfort care may be appropriate. He has had low blood pressures over the past 2 days, worsening renal function. Most recent blood pressure 60s over 40s. I see was consulted for hypotension by hospitalist. Palliative care had spoken with the patient and his earlier in the day, they had decided that the patient was DNI/DNR. I discussed this with the patient again with his and 2 other family members present at bedside. They all confirm that the patient would not want intubation if he were to decline, he would not want chest compressions either. He said that he would want to be made comfortable and "to let him go." I discussed at great length patient wishes. I explained that if patient wanted aggressive blood pressure control that we could offer a central line and pressors. I explained what a central line was and where it could be placed to the patient, and he was at first very adamant about not wanting this placed. He said he needed three days to decide on whether he wanted to continue current care or transition to comfort care only with palliative care. This was discussed with hospitalist. Hospitalist spoke with patient again, and patient has changed his mind and states he wants central line and pressors. This was again discussed with patient and his . he has agreed that he wants central line, pressors, and would agree to signing consent for this procedure. Past Med Surg Social Fam HX - Past Medical History Medical history: other (Parkinson's disease) Psychiatric history: no psych history - Past Surgical History Surgical History: other - Social History Smoking Status: Never smoker Smokeless Tobacco Status: No Alcohol use: none Drug use: none - Family History Sister Hx Family Cancer: Yes (Pancreatic cancer) Medications and Allergies Carbidopa/Levodopa ER 50/200 [Sinemet ER 50-200 TAB] 1 each PO TID 04/23/16 [ History] Ropinirole HCl [Requip] 0.5 mg PO TID 04/23/16 [History] Ondansetron HCl 4 mg PO Q8HR PRN 07/16/16 [History] Sennosides/Docusate Sodium [Senna-Docusate Sodium Tablet] 1 each PO DAILY PRN [History] Loperamide [Imodium] 2 mg PO AD PRN #30 capsule 08/04/16 [Rx] Magic Mouthwash 5 ml PO Q4H PRN #240 ml 08/04/16 [Rx] Acetaminophen [Pain Relief] 2 tab PO Q4H PRN 08/25/16 [History] Dexamethasone [Decadron] 4 mg PO DAILY 08/25/16 [History] Famotidine [Heartburn Prevention] 20 mg PO HS 08/25/16 [History] Ferrous Sulfate [Iron] 325 mg PO DAILY 08/25/16 [History] Folic Acid 1 mg PO DAILY 08/25/16 [History] Capecitabine [Xeloda] 3 tab PO BID #84 tablet 09/04/16 [Rx] Prochlorperazine Maleate [Compazine] 10 mg PO Q8HR PRN 09/26/16 [History] Allergies No Known Allergies Allergy (Verified 08/25/16 08:25) All Systems: A 10-system review of systems was performed and is negative for pertinent findings except as documented above in the HPI. - Constitutional Constitutional: fatigue, weight loss - EENT Nose, mouth and throat: disequilibrium - Cardiovascular Cardiovascular: lightheadedness, no chest pain - Gastrointestinal Gastrointestinal: diarrhea, no abdominal pain - Musculoskeletal Musculoskeletal: muscle weakness, no numbness - Integumentary Integumentary: no rash - Neurological Neurological: weakness Physical Examination Vital Signs: Vital Signs, Last 4 Hours Temp Pulse Resp BP Pulse Ox 09/30/16 15:00 89 64/42 09/30/16 12:12 95 60/40 09/30/16 11:43 97.8 F 95 20 97 General appearance: no acute distress, other (Cachectic, somewhat sleepy on exam ) Eyes: nonicteric ENT: oropharynx dry Neck: supple Effort: normal Inspection: normal Auscultation: bilateral: wheezes (Mild bilateral lower lobe) Cardiovascular: regular rate and rhythm Gastrointestinal: normoactive bowel sounds, non-distended Integumentary: other (Diffuse pallor) Extremities: no edema, no clubbing, cool Musculoskeletal: other (Cachectic) normal mental status, non-focal exam mood appropriate, affect normal Results - Laboratory Findings CBC and BMP: 09/30/16 08:06 09/30/16 08:06 PT/INR, D-dimer PT 15.2 Seconds (9.4-12.1) H 09/30/16 08:06 Abnormal lab findings: Abnormal lab results WBC 1.2 K/mcL (4.3-11.1) L 09/30/16 08:06 Hgb 10.7 g/dL (12.9-16.9) L D 09/30/16 08:06 Hct 34.0 % (37.5-50.1) L 09/30/16 08:06 MCV 78.7 fL (83.0-100.0) L 09/30/16 08:06 MCH 24.8 pg (28.0-33.3) L 09/30/16 08:06 MCHC 31.5 g/dL (31.6-35.5) L 09/30/16 08:06 RDW 29.6 % (11.5-14.5) H 09/30/16 08:06 Plt Count 134 K/mcL (140-400) L 09/30/16 08:06 MPV 9.0 fL (9.4-12.4) L 09/30/16 08:06 Reticulocyte # 0.04 M/mcL (0.05-0.10) L 09/27/16 08:56 Immature Gran % 15.4 % (0-4) H 09/30/16 08:06 Band Neutrophils % 22.0 % (0-4) H 09/29/16 04:28 Neutrophils # 0.7 K/mcL (1.6-8.9) L 09/30/16 08:06 Lymphocytes # 0.2 K/mcL (0.6-4.6) L 09/30/16 08:06 Nucleated RBCs/100 WBC 14.6 /100 WBC (0) H 09/30/16 08:06 Clumped Platelets Few (Not Present) A 09/27/16 00:52 Polychromasia 1+ (Not Present) A 09/30/16 08:06 Anisocytosis 1+ (Not Present) A 09/29/16 04:28 Microcytosis Present (Not Present) A 09/26/16 13:22 Macrocytosis Present (Not Present) A 09/28/16 05:09 Ovalocytes 1+ (Not Present) A 09/27/16 00:52 Lucas Cells 3+ (Not Present) A 09/30/16 08:06 Acanthocytes (Spur) 1+ (Not Present) A 09/27/16 00:52 Schistocytes 1+ (Not Present) A 09/28/16 05:09 Percent Retic 0.9 % (1.6-2.8) L 09/27/16 08:56 PT 15.2 Seconds (9.4-12.1) H 09/30/16 08:06 Sodium 132 mEq/L (136-145) L 09/30/16 08:06 Carbon Dioxide 15 mEq/L (19-29) L 09/30/16 08:06 BUN 51 mg/dL (8-26) H 09/30/16 08:06 Creatinine 3.19 mg/dL (0.72-1.25) H 09/30/16 08:06 Est GFR ( Amer) 24 (> 60) L 09/30/16 08:06 Est GFR (Non-Af Amer) 19 (> 60) L 09/30/16 08:06 Glucose 106 mg/dL (70-99) H 09/30/16 08:06 Calcium 7.7 mg/dL (8.6-10.8) L 09/30/16 08:06 Iron 27 mcg/dL (65-175) L 09/27/16 08:56 % Saturation 15 % (20-55) L 09/27/16 08:56 Transferrin 129 mg/dL (174-364) L 09/27/16 08:56 Ferritin 900 ng/ml (22-275) H 09/27/16 08:56 Serum Total Protein 4.4 g/dL (6.0-8.3) L 09/30/16 08:06 Albumin 1.8 g/dL (3.5-5.0) L 09/30/16 08:06 Albumin/Globulin Ratio 0.7 (1.1-2.2) L 09/30/16 08:06 Vitamin B12 1557 pg/mL (213-816) H 09/27/16 08:56 Urine Clarity Turbid (Clear) A 09/29/16 20:00 Urine Protein 30 mg/dL (Neg-Trace) H 09/29/16 20:00 Urine Glucose (UA) 100 mg/dL (Normal) H 09/29/16 20:00 Urine Ketones Trace mg/dL (Negative) H 09/29/16 20:00 Urine Bilirubin Small (Negative) H 09/29/16 20:00 Ur Leukocyte Esterase Moderate (Negative) H 09/29/16 20:00 Urine Microscopic WBC 5-15 per hpf (0-3) H 09/29/16 20:00 Ur Squamous Epith Cells Many per lpf (None-Few) H 09/29/16 20:00 Urine Bacteria Many per hpf (None-Few) H 09/29/16 20:00 Urine Yeast Few per hpf (None Seen) H 09/29/16 20:00 - Clinical Findings Intake & Output: Intake & Output 09/29/16 09/30/16 09/30/16 23:59 07:59 15:59 Intake Total 260 / 260 Balance 260 / 260 Consult Discharge Plan - Plan Referrals: Esdras Jacob MD [Primary Care Provider] - (Web Requested an appointment) <Shelby Isaac - Last Filed: 09/30/16 23:29> Date of Encounter: 09/30/16 All Systems: A 10-system review of systems was performed and is negative for pertinent findings except as documented above in the HPI. Physical Examination Vital Signs: Vital Signs, Last 4 Hours Temp Pulse Resp BP Pulse Ox 09/30/16 15:26 97.2 F L 89 15 72/39 99 09/30/16 15:00 89 64/42 09/30/16 12:12 95 60/40 Results - Laboratory Findings CBC and BMP: 09/30/16 08:06 09/30/16 08:06 PT/INR, D-dimer PT 15.2 Seconds (9.4-12.1) H 09/30/16 08:06 Abnormal lab findings: Abnormal lab results WBC 1.2 K/mcL (4.3-11.1) L 09/30/16 08:06 Hgb 10.7 g/dL (12.9-16.9) L D 09/30/16 08:06 Hct 34.0 % (37.5-50.1) L 09/30/16 08:06 MCV 78.7 fL (83.0-100.0) L 09/30/16 08:06 MCH 24.8 pg (28.0-33.3) L 09/30/16 08:06 MCHC 31.5 g/dL (31.6-35.5) L 09/30/16 08:06 RDW 29.6 % (11.5-14.5) H 09/30/16 08:06 Plt Count 134 K/mcL (140-400) L 09/30/16 08:06 MPV 9.0 fL (9.4-12.4) L 09/30/16 08:06 Reticulocyte # 0.04 M/mcL (0.05-0.10) L 09/27/16 08:56 Immature Gran % 15.4 % (0-4) H 09/30/16 08:06 Band Neutrophils % 22.0 % (0-4) H 09/29/16 04:28 Neutrophils # 0.7 K/mcL (1.6-8.9) L 09/30/16 08:06 Lymphocytes # 0.2 K/mcL (0.6-4.6) L 09/30/16 08:06 Nucleated RBCs/100 WBC 14.6 /100 WBC (0) H 09/30/16 08:06 Clumped Platelets Few (Not Present) A 09/27/16 00:52 Polychromasia 1+ (Not Present) A 09/30/16 08:06 Anisocytosis 1+ (Not Present) A 09/29/16 04:28 Microcytosis Present (Not Present) A 09/26/16 13:22 Macrocytosis Present (Not Present) A 09/28/16 05:09 Ovalocytes 1+ (Not Present) A 09/27/16 00:52 Lucas Cells 3+ (Not Present) A 09/30/16 08:06 Acanthocytes (Spur) 1+ (Not Present) A 09/27/16 00:52 Schistocytes 1+ (Not Present) A 09/28/16 05:09 Percent Retic 0.9 % (1.6-2.8) L 09/27/16 08:56 PT 15.2 Seconds (9.4-12.1) H 09/30/16 08:06 Sodium 132 mEq/L (136-145) L 09/30/16 08:06 Carbon Dioxide 15 mEq/L (19-29) L 09/30/16 08:06 BUN 51 mg/dL (8-26) H 09/30/16 08:06 Creatinine 3.19 mg/dL (0.72-1.25) H 09/30/16 08:06 Est GFR ( Amer) 24 (> 60) L 09/30/16 08:06 Est GFR (Non-Af Amer) 19 (> 60) L 09/30/16 08:06 Glucose 106 mg/dL (70-99) H 09/30/16 08:06 Calcium 7.7 mg/dL (8.6-10.8) L 09/30/16 08:06 Iron 27 mcg/dL (65-175) L 09/27/16 08:56 % Saturation 15 % (20-55) L 09/27/16 08:56 Transferrin 129 mg/dL (174-364) L 09/27/16 08:56 Ferritin 900 ng/ml (22-275) H 09/27/16 08:56 Serum Total Protein 4.4 g/dL (6.0-8.3) L 09/30/16 08:06 Albumin 1.8 g/dL (3.5-5.0) L 09/30/16 08:06 Albumin/Globulin Ratio 0.7 (1.1-2.2) L 09/30/16 08:06 Vitamin B12 1557 pg/mL (213-816) H 09/27/16 08:56 Urine Clarity Turbid (Clear) A 09/29/16 20:00 Urine Protein 30 mg/dL (Neg-Trace) H 09/29/16 20:00 Urine Glucose (UA) 100 mg/dL (Normal) H 09/29/16 20:00 Urine Ketones Trace mg/dL (Negative) H 09/29/16 20:00 Urine Bilirubin Small (Negative) H 09/29/16 20:00 Ur Leukocyte Esterase Moderate (Negative) H 09/29/16 20:00 Urine Microscopic WBC 5-15 per hpf (0-3) H 09/29/16 20:00 Ur Squamous Epith Cells Many per lpf (None-Few) H 09/29/16 20:00 Urine Bacteria Many per hpf (None-Few) H 09/29/16 20:00 Urine Yeast Few per hpf (None Seen) H 09/29/16 20:00 - Clinical Findings Intake & Output: Intake & Output 09/30/16 09/30/16 09/30/16 07:59 15:59 23:59 Intake Total 260 / 260 Balance 260 / 260 - Attending Attestation I examined this patient and my medical decision-making was reviewed with the Resident Physician. I agree with the documented findings, disposition and treatment plan as described except to the extent set forth below. Patient seen and examined. Labs, radiology, chart personally reviewed. Agree with resident's history and physical, assessment, plan with following comments: SQUARE CUTTER: Patient follows commands, Pulmonary: Acceptable oxygenation and ventilation reviewed CT chest and there is evidence of atelectasis as well as what looks like metastasis. Pneumonia cannot be ruled out due to his immune compromised status empiric coverage with broad-spectrum antibiotics. Cardiovascular: Hypotension which is multifactorial I suspect fluid deficit and also he meets sepsis criteria. GI: Nutrition per dietary and GI prophylaxis per routine Heme: DVT prophylaxis per routine patient with extreme poor prognosis and he would like to be aggressive and even though I believe the big picture has poor prognosis will place central line for resuscitation and vasopressor since he is not responding well to fluid resuscitation ID: Continue antibiotics and plan to de-escalation Renal; urine out put and renal funtion reviewed Endorcine: blood glucose is monitored Lines: all lines checked and no evidence of infections Skin: skin care to prevent pressure ulcers per nursing routine care. Skin cool to touch with poor capillary refills. Discussed with primary team. Thank you for consultation and discussed with the family at the bedside
[2016-09-30] MEDS ORDERED: 0.9 % Sodium Chloride 1,000 ML IVC ONE ×2 (16:30)
--- NOTE | 2016-09-30 16:36 | Procedure Note ---
<Ildefonso Norton - Last Filed: 09/30/16 18:15> Date of procedure: 09/30/16 Procedures - Central Line Placement Right Femoral Central Line Inserted*: Yes Central Line Catheter Replacement*: Yes Central Line Insertion: emergent Consent Obtained: written consent Procedural Pause: verify patient name and date of , timeout performed per policy, antonio and assess the site, assemble equipment and verify supplies, perform hand hygiene Patient Placed on Monitor/Pulse Ox: Yes During the Procedure: clinician is wearing sterile gloves, cap, mask,& gown during insertion, sterile field and sterile technique are maintained, patient's face is covered with drape or mask and wearing a cap, everyone in room is wearing a mask Central Line Prep: Povidone-Iodine 1%, sterile drapes applied Prep the Procedure Site: apply chloraprep to the skin using a back and forth scrubbing motion, drape the patient with a full body drape Local Anesthetic: lidocaine 1%, with epi Amount of anesthesia used (mL): 5 Ultrasound Used for Placement: No (emergent) Central Line Lumen Inserted: triple Post Procedure: sutured in place, good blood return, all ports aspirated, flushed, capped, sterile dressing applied, guide wire removed and visualized Patient Tolerated Procedure: well, no complications Complications: none Name of Clinician Inserting Central Line: Ildefonso Norton D.O. Clinician Assisting/Completing Checklist: Shelby Isaac M.D. Date: 09/30/16 Time: 16:00 <Shelby Isaac - Last Filed: 09/30/16 23:34> Pre-op diagnosis: Hypotesnion Post-op diagnosis: same Procedure: I have personally supervised resident placing right femoral CVC without immediate complications.
--- NOTE | 2016-09-30 17:59 | Urology - Consult Note ---
Date of Encounter: 09/30/16 Time of Encounter: 17:57 - Assessment and Plan (1) Hydronephrosis Current Visit: Yes Status: Acute Assessment and plan: 71-year-old man with a history of metastatic colon cancer and now new onset right hydroureteronephrosis. There appears to be evidence of lymphadenopathy in the mesentery causing external compression on to the ureter. He also has acute kidney injury. The antecubital kidney injury is only partially explained by the hydronephrosis. His left side is otherwise normal. I placed a catheter today. Minimal urine returned. I discussed with his family the hydronephrosis. We discussed the options of observation versus cystoscopy with right ureteral stent placement or right nephrostomy tube placement. They would like to consider the options after a family meeting. I informed them that stent placement may not necessarily improve his clinical condition given his extensive cancer. Qualifiers: Qualified Code(s): N13.30 - Unspecified hydronephrosis (2) BPH w urinary obs/LUTS Current Visit: Yes Status: Acute Assessment and plan: His CT scan showed concern for benign prostatic hyperplasia. I was able to place an 18 Pashto coud catheter. Minimal urine returned. Urology CN:HPI Consult date: 09/30/16 Reason for consult Urology: Hydronephrosis History of present illness: 71-year-old man presents with concern for metastatic colon cancer, BPH, and right ureteral obstruction. He had a recent CT scan which showed a mesenteric lymph node causing external compression upon the right ureter. There was resulting right hydroureteronephrosis. In addition there is concern for sepsis. He is on vancomycin and Zosyn. Efforts were made to pass a catheter, but this was not successful. I was asked to place a catheter in to discuss management of the right-sided hydroureteronephrosis. He is here today with his daughters. I discussed his clinical condition and urologic issues at hand. In addition his creatinine has been progressively rising and is currently 3.19. Past Med Surg Social Fam HX - Past Medical History Medical history: other (Parkinson's disease) Psychiatric history: no psych history - Past Surgical History Surgical History: other - Social History Smoking Status: Never smoker Smokeless Tobacco Status: No Alcohol use: none Drug use: none - Family History Sister Hx Family Cancer: Yes (Pancreatic cancer) Medications and Allergies Carbidopa/Levodopa ER 50/200 [Sinemet ER 50-200 TAB] 1 each PO TID 04/23/16 [ History] Ropinirole HCl [Requip] 0.5 mg PO TID 04/23/16 [History] Ondansetron HCl 4 mg PO Q8HR PRN 07/16/16 [History] Sennosides/Docusate Sodium [Senna-Docusate Sodium Tablet] 1 each PO DAILY PRN [History] Loperamide [Imodium] 2 mg PO AD PRN #30 capsule 08/04/16 [Rx] Magic Mouthwash 5 ml PO Q4H PRN #240 ml 08/04/16 [Rx] Acetaminophen [Pain Relief] 2 tab PO Q4H PRN 08/25/16 [History] Dexamethasone [Decadron] 4 mg PO DAILY 08/25/16 [History] Famotidine [Heartburn Prevention] 20 mg PO HS 08/25/16 [History] Ferrous Sulfate [Iron] 325 mg PO DAILY 08/25/16 [History] Folic Acid 1 mg PO DAILY 08/25/16 [History] Capecitabine [Xeloda] 3 tab PO BID #84 tablet 09/04/16 [Rx] Prochlorperazine Maleate [Compazine] 10 mg PO Q8HR PRN 09/26/16 [History] Allergies No Known Allergies Allergy (Verified 08/25/16 08:25) Review of Systems - Constitutional no chills, no fever(s) - EENT Nose, mouth and throat: dizziness - Cardiovascular no chest pain - Respiratory no dyspnea - Gastrointestinal no nausea, no vomiting - Genitourinary no flank pain, no hematuria - Musculoskeletal no back pain - Integumentary no erythema, no rash - Neurological no weakness - Psychiatric no suicidal ideation - Hematologic/Lymphatic no easy bleeding - Allergic/Immunologic no wheezing Exam Initial Vital Signs Temp Pulse Resp BP Pulse Ox 97.8 F 82 20 124/81 98 09/26/16 12:55 09/26/16 12:55 09/26/16 12:55 09/26/16 12:55 09/26/16 12:55 - General physical appearance Present: well developed, well nourished, no distress - Eyes Absent: icteric - ENT Present: normal nares - Neck Present: trachea midline - Respiratory Present: normal respiratory effort - Cardiovascular Cardiovascular exam IM: RRR - Abdomen Abdomen: Present: soft - Genitourinary normal penis with no external lesions Urology Results - Labs 09/30/16 08:06 09/30/16 08:06 Abnormal lab results WBC 1.2 K/mcL (4.3-11.1) L 09/30/16 08:06 Hgb 10.7 g/dL (12.9-16.9) L D 09/30/16 08:06 Hct 34.0 % (37.5-50.1) L 09/30/16 08:06 MCV 78.7 fL (83.0-100.0) L 09/30/16 08:06 MCH 24.8 pg (28.0-33.3) L 09/30/16 08:06 MCHC 31.5 g/dL (31.6-35.5) L 09/30/16 08:06 RDW 29.6 % (11.5-14.5) H 09/30/16 08:06 Plt Count 134 K/mcL (140-400) L 09/30/16 08:06 MPV 9.0 fL (9.4-12.4) L 09/30/16 08:06 Reticulocyte # 0.04 M/mcL (0.05-0.10) L 09/27/16 08:56 Immature Gran % 15.4 % (0-4) H 09/30/16 08:06 Band Neutrophils % 22.0 % (0-4) H 09/29/16 04:28 Neutrophils # 0.7 K/mcL (1.6-8.9) L 09/30/16 08:06 Lymphocytes # 0.2 K/mcL (0.6-4.6) L 09/30/16 08:06 Nucleated RBCs/100 WBC 14.6 /100 WBC (0) H 09/30/16 08:06 Clumped Platelets Few (Not Present) A 09/27/16 00:52 Polychromasia 1+ (Not Present) A 09/30/16 08:06 Anisocytosis 1+ (Not Present) A 09/29/16 04:28 Microcytosis Present (Not Present) A 09/26/16 13:22 Macrocytosis Present (Not Present) A 09/28/16 05:09 Ovalocytes 1+ (Not Present) A 09/27/16 00:52 Lucas Cells 3+ (Not Present) A 09/30/16 08:06 Acanthocytes (Spur) 1+ (Not Present) A 09/27/16 00:52 Schistocytes 1+ (Not Present) A 09/28/16 05:09 Percent Retic 0.9 % (1.6-2.8) L 09/27/16 08:56 PT 15.2 Seconds (9.4-12.1) H 09/30/16 08:06 Sodium 132 mEq/L (136-145) L 09/30/16 08:06 Carbon Dioxide 15 mEq/L (19-29) L 09/30/16 08:06 BUN 51 mg/dL (8-26) H 09/30/16 08:06 Creatinine 3.19 mg/dL (0.72-1.25) H 09/30/16 08:06 Est GFR ( Amer) 24 (> 60) L 09/30/16 08:06 Est GFR (Non-Af Amer) 19 (> 60) L 09/30/16 08:06 Glucose 106 mg/dL (70-99) H 09/30/16 08:06 Calcium 7.7 mg/dL (8.6-10.8) L 09/30/16 08:06 Iron 27 mcg/dL (65-175) L 09/27/16 08:56 % Saturation 15 % (20-55) L 09/27/16 08:56 Transferrin 129 mg/dL (174-364) L 09/27/16 08:56 Ferritin 900 ng/ml (22-275) H 09/27/16 08:56 Serum Total Protein 4.4 g/dL (6.0-8.3) L 09/30/16 08:06 Albumin 1.8 g/dL (3.5-5.0) L 09/30/16 08:06 Albumin/Globulin Ratio 0.7 (1.1-2.2) L 09/30/16 08:06 Vitamin B12 1557 pg/mL (213-816) H 09/27/16 08:56 Urine Clarity Turbid (Clear) A 09/29/16 20:00 Urine Protein 30 mg/dL (Neg-Trace) H 09/29/16 20:00 Urine Glucose (UA) 100 mg/dL (Normal) H 09/29/16 20:00 Urine Ketones Trace mg/dL (Negative) H 09/29/16 20:00 Urine Bilirubin Small (Negative) H 09/29/16 20:00 Ur Leukocyte Esterase Moderate (Negative) H 09/29/16 20:00 Urine Microscopic WBC 5-15 per hpf (0-3) H 09/29/16 20:00 Ur Squamous Epith Cells Many per lpf (None-Few) H 09/29/16 20:00 Urine Bacteria Many per hpf (None-Few) H 09/29/16 20:00 Urine Yeast Few per hpf (None Seen) H 09/29/16 20:00 Diabetes panel 09/30/16 Range/Units 08:06 Sodium 132 L (136-145) mEq/L Potassium 3.9 (3.5-4.5) mEq/L Chloride 107 (98-109) mEq/L Carbon Dioxide 15 L (19-29) mEq/L BUN 51 H (8-26) mg/dL Creatinine 3.19 H (0.72-1.25) mg/dL Glucose 106 H (70-99) mg/dL Calcium 7.7 L (8.6-10.8) mg/dL AST 16 (5-34) Units/L ALT < 6 (0-55) Units/L Alkaline Phosphatase 106 (38-126) Units/L Albumin 1.8 L (3.5-5.0) g/dL Calcium panel 09/30/16 Range/Units 08:06 Calcium 7.7 L (8.6-10.8) mg/dL Albumin 1.8 L (3.5-5.0) g/dL Pituitary panel 09/30/16 Range/Units 08:06 Sodium 132 L (136-145) mEq/L Potassium 3.9 (3.5-4.5) mEq/L Chloride 107 (98-109) mEq/L Carbon Dioxide 15 L (19-29) mEq/L BUN 51 H (8-26) mg/dL Creatinine 3.19 H (0.72-1.25) mg/dL Glucose 106 H (70-99) mg/dL Calcium 7.7 L (8.6-10.8) mg/dL Adrenal panel 09/30/16 Range/Units 08:06 Sodium 132 L (136-145) mEq/L Potassium 3.9 (3.5-4.5) mEq/L Chloride 107 (98-109) mEq/L Carbon Dioxide 15 L (19-29) mEq/L BUN 51 H (8-26) mg/dL Creatinine 3.19 H (0.72-1.25) mg/dL Glucose 106 H (70-99) mg/dL Calcium 7.7 L (8.6-10.8) mg/dL Total Bilirubin 0.8 (0.2-1.2) mg/dL AST 16 (5-34) Units/L ALT < 6 (0-55) Units/L Alkaline Phosphatase 106 (38-126) Units/L Albumin 1.8 L (3.5-5.0) g/dL All other labs normal. - Imaging CT scan - abdomen: report reviewed, image reviewed CT scan - pelvis: report reviewed, image reviewed Consult Discharge Plan - Plan Referrals: Esdras Jacob MD [Primary Care Provider] - (Web Requested an appointment)
[2016-09-30] MEDS: Norepinephrine 4 MG in D5% in Water 250 ML IVC SCH (20:27)
[2016-09-30] MEDS ORDERED: Vancomycin 1,000 MG in D5% in Water 250 ML IVPB ONE (23:00)
[2016-09-30] MEDS: Famotidine 20 MG TABLET PO SCH (23:05)
[2016-10-01] MEDS: Piperacillin/Tazobactam 3.375 GM in D5% in Water (Mini-Bag+) 100 ML IVPB SCH ×2 (00:16→12:55)
[2016-10-01] MEDS: Hydrocortisone Sodium Succ 100 MG/2 ML VIAL IVP SCH ×2 (00:17→16:21)
[2016-10-01] MEDS: CAPECITABINE PO SCH (00:18)
[2016-10-01] MEDS ORDERED: 0.9 % Sodium Chloride 1,000 ML IVC ONE ×2 (05:38→16:23)
[2016-10-01] MEDS ORDERED: *HR* Enoxaparin 30 MG/0.3 ML SYRINGE SQ SCH (07:00)
--- NOTE | 2016-10-01 07:49 | Pulmonology Progress Note ---
<Esdras Pope - Last Filed: 10/01/16 11:41> Date of Encounter: 10/01/16 Time of Encounter: 07:49 Assessment and Plan (1) Severe sepsis Current Visit: Yes Status: Acute Severe sepsis with tachypnea, leukopenia, hypertension in the setting of colon cancer with metastasis to multiple organs, chemotherapy, right lower lobe pneumonia. Blood pressure has improved today. This morning, patient was on 1 mcg/h of norepinephrine. Patient was given an additional fluid bolus and was able to be taken off pressors this morning. Blood pressure is now 100-110 systolic over 60s. Patient is mentating well. No current complaints. He has had improvement intake and oral liquids but still had poor intake of food. He also has Ensure ordered for supplementation. Continue Zosyn and vancomycin for RLL pneumonia Aggressive IV hydration with NS boluses, levophed or dopamine titration PRN Blood cultures pending - NGTD Palliative care and I have hled family meeting today at 11:30am with patient, his , two daughters, two step daughters. Patient and family has confirmed DNRCCA/DNI. Patient wants aggressive blood pressure control, aggressive cancer treatment (as tolerated), possible ureteral stent on the right due to impingement by metastatic tumor and thus causing right hydronephrosis. They did not want the patient transferred out of the ICU at this time, did not feel comfortable with the patient going to 2 N at this time. Current diagnoses, care , future care was discussed with the patient and all family members present. They are currently happy with the patient's current care and status and would like to progress care as currently underway. We discussed starting additional medication for improving appetite. (2) History of colon cancer Current Visit: Yes Status: Chronic Currently being followed by oncology. Appreciate recs. For now, patient and wished to continue aggressive cancer treatment as tolerated and as recommended by oncology. 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 Continue vancomycin and Zosyn. Qualifiers: Pneumonia type: due to unspecified organism Qualified Code(s): J18.1 - Lobar pneumonia, unspecified organism (5) Leukopenia Current Visit: Yes Status: Acute Secondary to chemotherapy. Will continue to monitor. On empiric antibiotics of vancomycin, zosyn for pneumonia. Qualifiers: Leukopenia type: neutropenia Neutropenia type: secondary to cancer chemotherapy Qualified Code(s): D70.1 - Agranulocytosis secondary to cancer chemotherapy (6) CLIF (acute kidney injury) Current Visit: Yes Status: Acute Secondary to dehydration and hypovolemia in setting of septic shock. Mildly improved today. Will continue hydration with saline boluses PRN Patient has right hydronephrosis on CT scan secondary to metastatic lesion. Patient also has BPH. Marrufo in place. Urology has been contacted and is following. (7) Unable to ambulate Current Visit: Yes Status: Acute Multifactoral generalized weakness from metastatic cancer, chemotherapy, dehydration, generalized muscle deconditioning, Parkinsons. Continue supportive care PT/OT consulted Palliative care on board to discuss goals of care and CODE STATUS. Patient is confirmed DNR/DNI. Patient's is POA (8) Diarrhea Current Visit: Yes Status: Acute Supportive care at this time with fluids. C diff negative. Rectal tube placed for management. Qualifiers: Diarrhea type: unspecified type Qualified Code(s): R19.7 - Diarrhea, unspecified (9) Parkinsons disease Current Visit: Yes Status: Chronic Continue Sinemet home dose (10) DVT prophylaxis Current Visit: Yes Status: Acute [id number] SQ daily currently. We will DC this and start heparin 5000 units every 12 hours due to renal function. Subjective Principal diagnosis: severe sepsis Interval history: Patient did well overnight. No acute events overnight. Blood pressure has improved. This morning, patient was on 1 mcg/h of norepinephrine. Patient was given an additional fluid bolus and was able to be taken off pressors. Blood pressure is now 100-110 systolic over 60s. Patient is mentating well. No current complaints. He has had improvement intake and oral liquids but still had poor intake of food. He also has Ensure ordered for supplementation. Objective PUL Vital signs: Last Vital Signs Temp 98.0 F 10/01/16 04:00 Pulse 83 10/01/16 06:00 Resp 13 10/01/16 06:00 BP 107/59 10/01/16 06:00 Pulse Ox 99 10/01/16 06:00 General appearance: no acute distress, other (Cachectic, somewhat sleepy on exam ) Eyes: nonicteric ENT: oropharynx dry Neck: supple Effort: normal Inspection: normal Auscultation: bilateral: wheezes (Mild bilateral lower lobe) Cardiovascular: regular rate and rhythm Gastrointestinal: normoactive bowel sounds, non-distended, scaphoid abdomen Integumentary: other (Diffuse pallor) Extremities: no edema, no clubbing, cool Musculoskeletal: other (Cachectic); generalized weakness; bilateral LE weakness , +3-4/5 strength in all ROM of LE bilaterally normal mental status, non-focal exam mood appropriate, affect normal Results - Laboratory Findings CBC and BMP: 10/01/16 07:30 10/01/16 07:30 PT/INR, D-dimer PT 15.2 Seconds (9.4-12.1) H 09/30/16 08:06 Abnormal lab findings: Abnormal lab results WBC 1.2 K/mcL (4.3-11.1) L 09/30/16 08:06 Hgb 10.7 g/dL (12.9-16.9) L D 09/30/16 08:06 Hct 34.0 % (37.5-50.1) L 09/30/16 08:06 MCV 78.7 fL (83.0-100.0) L 09/30/16 08:06 MCH 24.8 pg (28.0-33.3) L 09/30/16 08:06 MCHC 31.5 g/dL (31.6-35.5) L 09/30/16 08:06 RDW 29.6 % (11.5-14.5) H 09/30/16 08:06 Plt Count 134 K/mcL (140-400) L 09/30/16 08:06 MPV 9.0 fL (9.4-12.4) L 09/30/16 08:06 Reticulocyte # 0.04 M/mcL (0.05-0.10) L 09/27/16 08:56 Immature Gran % 15.4 % (0-4) H 09/30/16 08:06 Band Neutrophils % 22.0 % (0-4) H 09/29/16 04:28 Neutrophils # 0.7 K/mcL (1.6-8.9) L 09/30/16 08:06 Lymphocytes # 0.2 K/mcL (0.6-4.6) L 09/30/16 08:06 Nucleated RBCs/100 WBC 14.6 /100 WBC (0) H 09/30/16 08:06 Clumped Platelets Few (Not Present) A 09/27/16 00:52 Polychromasia 1+ (Not Present) A 09/30/16 08:06 Anisocytosis 1+ (Not Present) A 09/29/16 04:28 Microcytosis Present (Not Present) A 09/26/16 13:22 Macrocytosis Present (Not Present) A 09/28/16 05:09 Ovalocytes 1+ (Not Present) A 09/27/16 00:52 [place] Cells 3+ (Not Present) A 09/30/16 08:06 Acanthocytes (Spur) 1+ (Not Present) A 09/27/16 00:52 Schistocytes 1+ (Not Present) A 09/28/16 05:09 Percent Retic 0.9 % (1.6-2.8) L 09/27/16 08:56 PT 15.2 Seconds (9.4-12.1) H 09/30/16 08:06 Sodium 132 mEq/L (136-145) L 09/30/16 08:06 Carbon Dioxide 15 mEq/L (19-29) L 09/30/16 08:06 BUN 51 mg/dL (8-26) H 09/30/16 08:06 Creatinine 3.19 mg/dL (0.72-1.25) H 09/30/16 08:06 Est GFR ( Amer) 24 (> 60) L 09/30/16 08:06 Est GFR (Non-Af Amer) 19 (> 60) L 09/30/16 08:06 Glucose 106 mg/dL (70-99) H 09/30/16 08:06 POC Glucose 93 (58-89) H 09/30/16 18:36 Calcium 7.7 mg/dL (8.6-10.8) L 09/30/16 08:06 Iron 27 mcg/dL (65-175) L 09/27/16 08:56 % Saturation 15 % (20-55) L 09/27/16 08:56 Transferrin 129 mg/dL (174-364) L 09/27/16 08:56 Ferritin 900 ng/ml (22-275) H 09/27/16 08:56 Serum Total Protein 4.4 g/dL (6.0-8.3) L 09/30/16 08:06 Albumin 1.8 g/dL (3.5-5.0) L 09/30/16 08:06 Albumin/Globulin Ratio 0.7 (1.1-2.2) L 09/30/16 08:06 Vitamin B12 1557 pg/mL (213-816) H 09/27/16 08:56 Urine Clarity Turbid (Clear) A 09/29/16 20:00 Urine Protein 30 mg/dL (Neg-Trace) H 09/29/16 20:00 Urine Glucose (UA) 100 mg/dL (Normal) H 09/29/16 20:00 Urine Ketones Trace mg/dL (Negative) H 09/29/16 20:00 Urine Bilirubin Small (Negative) H 09/29/16 20:00 Ur Leukocyte Esterase Moderate (Negative) H 09/29/16 20:00 Urine Microscopic WBC 5-15 per hpf (0-3) H 09/29/16 20:00 Ur Squamous Epith Cells Many per lpf (None-Few) H 09/29/16 20:00 Urine Bacteria Many per hpf (None-Few) H 09/29/16 20:00 Urine Yeast Few per hpf (None Seen) H 09/29/16 20:00 - Clinical Findings Intake & Output: Intake & Output 09/30/16 09/30/16 10/01/16 15:59 23:59 07:59 Intake Total 1260 / 1260 1220 / 1220 410 / 410 Output Total 100 / 100 550 / 550 Balance 1260 / 1260 1120 / 1120 -140 / -140 Consult Discharge Plan - Plan Referrals: Esdras Jacob MD [Primary Care Provider] - (Web Requested an appointment) <Shelby Isaac - Last Filed: 10/01/16 20:16> Date of Encounter: 10/01/16 Objective PUL Vital signs: Last Vital Signs Temp 97.6 F 10/01/16 16:23 Pulse 79 10/01/16 16:20 Resp 20 10/01/16 16:20 BP 76/45 10/01/16 16:20 Pulse Ox 100 10/01/16 16:20 Results - Laboratory Findings CBC and BMP: 10/01/16 07:30 10/01/16 07:30 PT/INR, D-dimer PT 15.2 Seconds (9.4-12.1) H 09/30/16 08:06 Abnormal lab findings: Abnormal lab results WBC 3.9 K/mcL (4.3-11.1) L D 10/01/16 07:30 RBC 3.75 M/mcL (4.19-5.50) L 10/01/16 07:30 Hgb 9.1 g/dL (12.9-16.9) L D 10/01/16 07:30 Hct 29.5 % (37.5-50.1) L 10/01/16 07:30 MCV 78.7 fL (83.0-100.0) L 10/01/16 07:30 MCH 24.3 pg (28.0-33.3) L 10/01/16 07:30 MCHC 30.8 g/dL (31.6-35.5) L 10/01/16 07:30 RDW 30.1 % (11.5-14.5) H 10/01/16 07:30 Plt Count 115 K/mcL (140-400) L 10/01/16 07:30 MPV 9.3 fL (9.4-12.4) L 10/01/16 07:30 Reticulocyte # 0.04 M/mcL (0.05-0.10) L 09/27/16 08:56 Immature Gran % 15.4 % (0-4) H 09/30/16 08:06 Band Neutrophils % 16.0 % (0-4) H 10/01/16 07:30 Nucleated RBCs/100 WBC 0.8 /100 WBC (0) H 10/01/16 07:30 Platelet Estimate Slight Decrease (Normal) L 10/01/16 07:30 Clumped Platelets Few (Not Present) A 09/27/16 00:52 Polychromasia 1+ (Not Present) A 10/01/16 07:30 Anisocytosis 2+ (Not Present) A 10/01/16 07:30 Microcytosis Present (Not Present) A 09/26/16 13:22 Macrocytosis Present (Not Present) A 09/28/16 05:09 Ovalocytes 1+ (Not Present) A 09/27/16 00:52 Lucas Cells 3+ (Not Present) A 10/01/16 07:30 Acanthocytes (Spur) 1+ (Not Present) A 09/27/16 00:52 Schistocytes 1+ (Not Present) A 09/28/16 05:09 Percent Retic 0.9 % (1.6-2.8) L 09/27/16 08:56 PT 15.2 Seconds (9.4-12.1) H 09/30/16 08:06 Sodium 133 mEq/L (136-145) L 10/01/16 07:30 Chloride 112 mEq/L (98-109) H 10/01/16 07:30 Carbon Dioxide 12 mEq/L (19-29) L 10/01/16 07:30 BUN 53 mg/dL (8-26) H 10/01/16 07:30 Creatinine 3.02 mg/dL (0.72-1.25) H 10/01/16 07:30 Est GFR ( Amer) 25 (> 60) L 10/01/16 07:30 Est GFR (Non-Af Amer) 21 (> 60) L 10/01/16 07:30 POC Glucose 93 (58-89) H 09/30/16 18:36 Calcium 7.3 mg/dL (8.6-10.8) L 10/01/16 07:30 Phosphorus 7.0 mg/dL (2.3-4.7) H 10/01/16 07:30 Iron 27 mcg/dL (65-175) L 09/27/16 08:56 % Saturation 15 % (20-55) L 09/27/16 08:56 Transferrin 129 mg/dL (174-364) L 09/27/16 08:56 Ferritin 900 ng/ml (22-275) H 09/27/16 08:56 Serum Total Protein 4.4 g/dL (6.0-8.3) L 09/30/16 08:06 Albumin 1.5 g/dL (3.5-5.0) L 10/01/16 07:30 Albumin/Globulin Ratio 0.7 (1.1-2.2) L 09/30/16 08:06 Prealbumin 5.0 mg/dL (18.0-45.0) L 10/01/16 07:52 Vitamin B12 1557 pg/mL (213-816) H 09/27/16 08:56 Urine Clarity Turbid (Clear) A 09/29/16 20:00 Urine Protein 30 mg/dL (Neg-Trace) H 09/29/16 20:00 Urine Glucose (UA) 100 mg/dL (Normal) H 09/29/16 20:00 Urine Ketones Trace mg/dL (Negative) H 09/29/16 20:00 Urine Bilirubin Small (Negative) H 09/29/16 20:00 Ur Leukocyte Esterase Moderate (Negative) H 09/29/16 20:00 Urine Microscopic WBC 5-15 per hpf (0-3) H 09/29/16 20:00 Ur Squamous Epith Cells Many per lpf (None-Few) H 09/29/16 20:00 Urine Bacteria Many per hpf (None-Few) H 09/29/16 20:00 Urine Yeast Few per hpf (None Seen) H 09/29/16 20:00 - Clinical Findings Intake & Output: Intake & Output 10/01/16 10/01/16 10/01/16 07:59 15:59 23:59 Intake Total 410 / 410 Output Total 650 / 650 400 / 400 850 / 850 Balance -240 / -240 -400 / -400 -850 / -850 - Attending Attestation I examined this patient and my medical decision-making was reviewed with the Resident Physician. I agree with the documented findings, disposition and treatment plan as described except to the extent set forth below. Patient seen and examined. Labs, radiology, chart personally reviewed. Agree with resident's history and physical, assessment, plan with following comments: BEAN VINER: Patient follows commands, Pulmonary: Acceptable oxygenation and ventilation Cardiovascular: patient responding bolus fluid and sometime low level of vasopressor. GI: Nutrition per dietary and GI prophylaxis per routine Heme: DVT prophylaxis per routine. ID: Continue antibiotics and plan to de-escalation Renal; urine out put and renal funtion reviewed. Urology follow up. Endorcine: blood glucose is monitored Lines: all lines checked and no evidence of infections Skin: skin care to prevent pressure ulcers per nursing routine care Still poor prognosis and when more stable to be transferred to the floor.
[2016-10-01 07:59] LABS: Calcium 7.3 mg/dL (8.6-10.8); Magnesium 1.6 mg/dL (1.6-2.6); Potassium 3.5 mEq/L (3.5-4.5)
[2016-10-01 08:01] LABS: Albumin 1.5 g/dL (3.5-5.0)
[2016-10-01 08:20] LABS: Hematocrit 29.5 % (37.5-50.1); Hemoglobin 9.1 g/dL (12.9-16.9); Mean Corpuscular HGB Conc 30.8 g/dL (31.6-35.5); Mean Corpuscular Hemoglobin 24.3 pg (28.0-33.3); Mean Corpuscular Volume 78.7 fL (83.0-100.0); Mean Platelet Volume 9.3 fL (9.4-12.4); Monocytes # 0.1 K/mcL (0.0-1.3); Nucleated Red Blood Cells 0.8 /100 WBC (0); Platelet Count 115 K/mcL (140-400); Red Blood Count 3.75 M/mcL (4.19-5.50); Red Cell Distribution Width 30.1 % (11.5-14.5)
[2016-10-01] MEDS ORDERED: Magic Mouthwash 10 ML UD Cup PO PRN (08:24)
[2016-10-01] MEDS ORDERED: Mag Hydrox/Al Hydrox/Simeth 30 ML UDC PO PRN (08:24)
[2016-10-01] MEDS ORDERED: ACETAMINOPHEN PO PRN (08:24)
[2016-10-01] MEDS ORDERED: Acetaminophen 325 MG TABLET PO PRN (08:24)
[2016-10-01] MEDS ORDERED: Norepinephrine 4 MG in D5% in Water 250 ML IVC SCH (08:24)
[2016-10-01] MEDS ORDERED: *HR* HYDROcodone/Acet 5/325 mg TABLET PO PRN (08:24)
[2016-10-01] MEDS ORDERED: Naloxone 0.4 MG/ML INJ IVP PRN (08:24)
[2016-10-01] MEDS ORDERED: Ondansetron 4 MG/2 ML VIAL IVP PRN (08:24)
[2016-10-01] MEDS ORDERED: Sennosides/Docusate Sodium TABLET PO PRN (08:24)
[2016-10-01 08:40] LABS: Anisocytosis 2+ (Not Present); Burr Cells 3+ (Not Present); Lymphocytes # 0.6 K/mcL (0.6-4.6); Neutrophils # 3.3 K/mcL (1.6-8.9); Platelet Estimate Slight Decrease (Normal); Polychromasia 1+ (Not Present)
[2016-10-01] MEDS: Lactobacillus 1 EACH CAP.SPRINK PO SCH ×4 (09:55→23:04)
[2016-10-01] MEDS: Carbidopa/Levodopa ER 50/200 TABLET PO SCH ×3 (09:55→23:04)
[2016-10-01] MEDS: rOPINIRole 0.25 MG TABLET PO SCH ×3 (09:56→23:04)
[2016-10-01] MEDS: Folic Acid 1 MG TABLET PO SCH (09:56)
[2016-10-01] MEDS: 0.9 % Sodium Chloride 1,000 ML IVC SCH ×2 (10:13→18:47)
[2016-10-01] MEDS: CAPECITABINE 150 MG PO SCH ×2 (10:14→23:14)
--- NOTE | 2016-10-01 11:50 | Palliative Progress Note ---
Date of Encounter: 10/01/16 Time of Encounter: 11:50 - Assessment and plan (1) Protein calorie malnutrition Current Visit: Yes Status: Acute Assessment and plan: Web Ui Developer following, receiving supplements. Will restart Mirtazapine 15mg at HS and monitor intake. (2) Diarrhea Current Visit: Yes Status: Acute Assessment and plan: Rectal tube has been inserted. Continues with PRN Imodium. Hopefully diarrhea will slow down now cycle chemo is completed. Qualifiers: Diarrhea type: unspecified type Qualified Code(s): R19.7 - Diarrhea, unspecified (3) Cancer related pain Current Visit: No Status: Acute Assessment and plan: Has Gomer PRN. Has not utilized. (4) Nausea Current Visit: Yes Status: Acute (5) Counseling regarding advanced care planning and goals of care Current Visit: Yes Status: Acute Assessment and plan: Meeting with pt/, 2 daughters and 2 stepdaughters, primary nurse Leanna, Dr. Pope and myself. Family updated on pt clinical status and goals of care were discussed. He has responded to vasopressor agent, and has been able to be weaned off. Patient was able to participate in discussion. He desires to maintain DNR/DNI status, however, does still desire aggressive care. Desires to continue chemotherapy if he is able to resume. Dr. Pope discussed ureteral stricture and placement of stent, and pt does desire to proceed. Nutritional status was also discussed and Dr. Pope asked if pt was interested in PEG placement - pt did state "I will try and eat better". Daughter at bedside stated they would need to discuss when the time came. Upon review of medical record and discussion with family, pt was on Mirtazapine at home for depression and appetite. Daughter did state that if the gets to the point that care is futile, they would re-discuss, but at this point if he wants to desire care and has good quality of life, pt will stay the current course. (6) History of colon cancer Current Visit: Yes Status: Chronic (7) History of cancer metastatic to brain Current Visit: Yes Status: Chronic (8) Parkinsons disease Current Visit: Yes Status: Chronic - Time Spent With Patient Total time spent is greater than 50% in coordination of care (as documented) at patient's floor/unit and/or counseling patient: 25 - 35 minutes - Subjective Interval history: Patient hemodynamically more stable today. Off pressors now and more alert, conversing with family. Denies pain or discomfort. Taking po fluids well. Daughters arrived from out of town and all family present at the bedside. - Constitutional Vitals: Abnormal lab results WBC 3.9 K/mcL (4.3-11.1) L D 10/01/16 07:30 RBC 3.75 M/mcL (4.19-5.50) L 10/01/16 07:30 Hgb 9.1 g/dL (12.9-16.9) L D 10/01/16 07:30 Hct 29.5 % (37.5-50.1) L 10/01/16 07:30 MCV 78.7 fL (83.0-100.0) L 10/01/16 07:30 MCH 24.3 pg (28.0-33.3) L 10/01/16 07:30 MCHC 30.8 g/dL (31.6-35.5) L 10/01/16 07:30 RDW 30.1 % (11.5-14.5) H 10/01/16 07:30 Plt Count 115 K/mcL (140-400) L 10/01/16 07:30 MPV 9.3 fL (9.4-12.4) L 10/01/16 07:30 Reticulocyte # 0.04 M/mcL (0.05-0.10) L 09/27/16 08:56 Immature Gran % 15.4 % (0-4) H 09/30/16 08:06 Band Neutrophils % 16.0 % (0-4) H 10/01/16 07:30 Nucleated RBCs/100 WBC 0.8 /100 WBC (0) H 10/01/16 07:30 Platelet Estimate Slight Decrease (Normal) L 10/01/16 07:30 Clumped Platelets Few (Not Present) A 09/27/16 00:52 Polychromasia 1+ (Not Present) A 10/01/16 07:30 Anisocytosis 2+ (Not Present) A 10/01/16 07:30 Microcytosis Present (Not Present) A 09/26/16 13:22 Macrocytosis Present (Not Present) A 09/28/16 05:09 Ovalocytes 1+ (Not Present) A 09/27/16 00:52 Northridge Cells 3+ (Not Present) A 10/01/16 07:30 Acanthocytes (Spur) 1+ (Not Present) A 09/27/16 00:52 Schistocytes 1+ (Not Present) A 09/28/16 05:09 Percent Retic 0.9 % (1.6-2.8) L 09/27/16 08:56 PT 15.2 Seconds (9.4-12.1) H 09/30/16 08:06 Sodium 133 mEq/L (136-145) L 10/01/16 07:30 Chloride 112 mEq/L (98-109) H 10/01/16 07:30 Carbon Dioxide 12 mEq/L (19-29) L 10/01/16 07:30 BUN 53 mg/dL (8-26) H 10/01/16 07:30 Creatinine 3.02 mg/dL (0.72-1.25) H 10/01/16 07:30 Est GFR ( Amer) 25 (> 60) L 10/01/16 07:30 Est GFR (Non-Af Amer) 21 (> 60) L 10/01/16 07:30 POC Glucose 93 (58-89) H 09/30/16 18:36 Calcium 7.3 mg/dL (8.6-10.8) L 10/01/16 07:30 Phosphorus 7.0 mg/dL (2.3-4.7) H 10/01/16 07:30 Iron 27 mcg/dL (65-175) L 09/27/16 08:56 % Saturation 15 % (20-55) L 09/27/16 08:56 Transferrin 129 mg/dL (174-364) L 09/27/16 08:56 Ferritin 900 ng/ml (22-275) H 09/27/16 08:56 Serum Total Protein 4.4 g/dL (6.0-8.3) L 09/30/16 08:06 Albumin 1.5 g/dL (3.5-5.0) L 10/01/16 07:30 Albumin/Globulin Ratio 0.7 (1.1-2.2) L 09/30/16 08:06 Prealbumin 5.0 mg/dL (18.0-45.0) L 10/01/16 07:52 Vitamin B12 1557 pg/mL (213-816) H 09/27/16 08:56 Urine Clarity Turbid (Clear) A 09/29/16 20:00 Urine Protein 30 mg/dL (Neg-Trace) H 09/29/16 20:00 Urine Glucose (UA) 100 mg/dL (Normal) H 09/29/16 20:00 Urine Ketones Trace mg/dL (Negative) H 09/29/16 20:00 Urine Bilirubin Small (Negative) H 09/29/16 20:00 Ur Leukocyte Esterase Moderate (Negative) H 09/29/16 20:00 Urine Microscopic WBC 5-15 per hpf (0-3) H 09/29/16 20:00 Ur Squamous Epith Cells Many per lpf (None-Few) H 09/29/16 20:00 Urine Bacteria Many per hpf (None-Few) H 09/29/16 20:00 Urine Yeast Few per hpf (None Seen) H 09/29/16 20:00 General appearance: Present: no acute distress - Respiratory Respiratory exam: Present: decreased breath sounds, CTAB Additional comments: Rales RLL - Cardiovascular Cardiovascular exam: Present: +S1, +S2 - GI/Abdominal GI/Abdominal exam: Present: normal bowel sounds, soft Additional comments: Rectal tube intact with liquid green stool - Additional comments: Marrufo intact with light jorge l urine - Neurological Exam Neurological exam: Present: alert, oriented X3, strengths equal and symetr throughout Additional comments: Generalized weakness - Psychiatric Psychiatric exam: Present: flat affect - Skin Skin exam: Present: dry, pallor, warm Palliative Quality Palliative Quality: Screen for Code Status: Yes, Screen for Goals of Care: Yes, Screen for Pain: Yes, If Pain Regimen Started, Initiate Bowel Regimen: NA ( diarrhea), Screen for Nausea/Vomitting: Yes - Labs CBC & Chem 7: 10/01/16 07:30 10/01/16 07:30 Labs: Laboratory Results - last 24 hr 09/30/16 09/30/16 10/01/16 18:36 20:40 07:30 WBC 3.9 L D RBC 3.75 L Hgb 9.1 L D Hct 29.5 L MCV 78.7 L MCH 24.3 L MCHC 30.8 L RDW 30.1 H Plt Count 115 L MPV 9.3 L Seg Neutrophils % 68.0 Band Neutrophils % 16.0 H Lymphocytes % 14.0 Monocytes % 2.0 Neutrophils # 3.3 Lymphocytes # 0.6 Monocytes # 0.1 Nucleated RBCs/100 WBC 0.8 H Platelet Estimate Slight Decrease L Polychromasia 1+ A Anisocytosis 2+ A Northridge Cells 3+ A Sodium Potassium Chloride Carbon Dioxide BUN Creatinine Est GFR ( Amer) Est GFR (Non-Af Amer) BUN/Creatinine Ratio Glucose POC Glucose 93 H Calculated Osmolality Lactic Acid Calcium Phosphorus Magnesium Albumin Prealbumin Random Vancomycin 10.0 10/01/16 10/01/16 10/01/16 07:30 07:30 07:52 WBC RBC Hgb Hct MCV MCH MCHC RDW Plt Count MPV Seg Neutrophils % Band Neutrophils % Lymphocytes % Monocytes % Neutrophils # Lymphocytes # Monocytes # Nucleated RBCs/100 WBC Platelet Estimate Polychromasia Anisocytosis Northridge Cells Sodium 133 L Potassium 3.5 Chloride 112 H Carbon Dioxide 12 L BUN 53 H Creatinine 3.02 H Est GFR ( Amer) 25 L Est GFR (Non-Af Amer) 21 L BUN/Creatinine Ratio 18 Glucose 98 POC Glucose Calculated Osmolality 290 Lactic Acid 0.6 Calcium 7.3 L Phosphorus 7.0 H Magnesium 1.6 Albumin 1.5 L Prealbumin 5.0 L Random Vancomycin 10/01/16 10:39 WBC RBC Hgb Hct MCV MCH MCHC RDW Plt Count MPV Seg Neutrophils % Band Neutrophils % Lymphocytes % Monocytes % Neutrophils # Lymphocytes # Monocytes # Nucleated RBCs/100 WBC Platelet Estimate Polychromasia Anisocytosis Lucas Cells Sodium Potassium Chloride Carbon Dioxide BUN Creatinine Est GFR ( Amer) Est GFR (Non-Af Amer) BUN/Creatinine Ratio Glucose POC Glucose Calculated Osmolality Lactic Acid Calcium Phosphorus Magnesium Albumin Prealbumin Random Vancomycin 19.6 - Impressions Impressions Abdomen/Pelvis CT 09/30/16 08:03 IMPRESSION: 1. Right lower lobe pneumonia. 2. Interval appearance since July 2016 of acute to subacute fractures involving the right 8th and 9th ribs. Correlate with focal trauma. Pathologic fractures cannot be excluded. 3. New wall thickening of the presumed small bowel which is nonspecific and may represent enteritis. No obstruction. 4. New mild right hydronephrosis secondary to tethering of the mid right ureter by scarring/carcinomatosis. 5. Progression of metastatic disease with multiple new pulmonary nodules, however, the larger nodules seen on CT dated 08/05/2016 are not significantly changed in size. 6. Grossly unchanged appearance of multifocal liver metastases. 7. Improved but persistent peritoneal carcinomatosis. 8. Sclerosis of the left superior pubic ramus corresponding to the hypermetabolic activity on prior PET/CT. Finding likely represents response to treatment. 9. Fluid throughout the remaining colon, compatible with diarrhea. D/ / 09/30/2016 12:27:20 Radha Roberts MD / mi Interpreting Provider: Radha Roberts MD Chest CT 09/30/16 08:03 IMPRESSION: 1. Right lower lobe pneumonia. 2. Interval appearance since July 2016 of acute to subacute fractures involving the right 8th and 9th ribs. Correlate with focal trauma. Pathologic fractures cannot be excluded. 3. New wall thickening of the presumed small bowel which is nonspecific and may represent enteritis. No obstruction. 4. New mild right hydronephrosis secondary to tethering of the mid right ureter by scarring/carcinomatosis. 5. Progression of metastatic disease with multiple new pulmonary nodules, however, the larger nodules seen on CT dated 08/05/2016 are not significantly changed in size. 6. Grossly unchanged appearance of multifocal liver metastases. 7. Improved but persistent peritoneal carcinomatosis. 8. Sclerosis of the left superior pubic ramus corresponding to the hypermetabolic activity on prior PET/CT. Finding likely represents response to treatment. 9. Fluid throughout the remaining colon, compatible with diarrhea. D/ / 09/30/2016 12:27:20 Radha Roberts MD / mi Interpreting Provider: Radha Roberts MD KUB X-Ray 09/30/16 16:37 IMPRESSION: Right femoral venous catheter in place as above. D/ / Eugenia Arenas Cha, MD / Eugenia Arenas Cha, MD Interpreting Provider: Eugenia Arenas Cha, MD Chest X-Ray 09/30/16 16:38 IMPRESSION: Stable portable study. D/ / Eugenia Arenas Cha, MD / Eugenia Arenas Cha, MD Interpreting Provider: Eugenia Arenas Cha, MD - ABG Interpretation ABG results: PT/INR, D-dimer PT 15.2 Seconds (9.4-12.1) H 09/30/16 08:06 Consult Discharge Plan - Plan Referrals: Esdras Jacob MD [Primary Care Provider] - (Web Requested an appointment)
[2016-10-01] MEDS ORDERED: Calcium Gluconate 1,000 MG in D5% in Water 100 ML IVPB PRN (15:57)
[2016-10-01] MEDS ORDERED: Sodium Phosphate 30 MMOL in D5% in Water 100 ML IVPB PRN (15:57)
[2016-10-01] MEDS ORDERED: Magnesium Sulfate 2 GM in D5% in Water 100 ML IVPB PRN (15:57)
--- NOTE | 2016-10-01 17:57 | Urology Progress Note ---
Date of Encounter: 10/01/16 Time of Encounter: 17:55 - Assessment and Plan (1) Hydronephrosis Current Visit: Yes Status: Acute Assessment and plan: 71-year-old gentleman with right hydroureteronephrosis. 1. Consideration of placement of right ureteral stent at the bedside. I do not think he is a good candidate for a general anesthetic. With his INR at 1.4, it may be preferable to consider stent placement rather than nephrostomy tube. I discussed this further with his daughter, Rosalia. She'll discuss with her family some more and notify us if they wish to proceed with the bedside stent placement. Qualifiers: Qualified Code(s): N13.30 - Unspecified hydronephrosis (2) BPH w urinary obs/LUTS Current Visit: Yes Status: Acute Assessment and plan: The catheter is in good position. The primary team to manage this. 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 I placed a Marrufo catheter yesterday. He has had reasonable urine output. Creatinine remains elevated slightly over 3. Yesterday we discussed placement of a nephrostomy tube. I spoke with his daughter, Rosalia, today. She says that she talk to him further and at the family meeting he felt that he would like to consider this further and not make a decision at this time. I discussed with his daughter the procedure in detail. He has a slight elevation of his INR to 1.4. It may be ill advised to perform a spinal anesthetic or even to perform a nephrostomy tube given the bleeding risk. Therefore, if we are to place a stent and recommend doing it at the bedside. Obviously, he would have some discomfort associated with this procedure. Objective Initial Vital Signs Temp Pulse Resp BP Pulse Ox 97.8 F 82 20 124/81 98 09/26/16 12:55 09/26/16 12:55 09/26/16 12:55 09/26/16 12:55 09/26/16 12:55 - General physical appearance Present: well developed, well nourished, no distress - Respiratory Present: normal respiratory effort - Abdomen Present: soft - Genitourinary Urine Appearance: Present: Clear - Labs 10/01/16 07:30 10/01/16 07:30 Diabetes panel 10/01/16 Range/Units 07:30 Sodium 133 L (136-145) mEq/L Potassium 3.5 (3.5-4.5) mEq/L Chloride 112 H (98-109) mEq/L Carbon Dioxide 12 L (19-29) mEq/L BUN 53 H (8-26) mg/dL Creatinine 3.02 H (0.72-1.25) mg/dL Glucose 98 (70-99) mg/dL Calcium 7.3 L (8.6-10.8) mg/dL Albumin 1.5 L (3.5-5.0) g/dL Calcium panel 10/01/16 Range/Units 07:30 Calcium 7.3 L (8.6-10.8) mg/dL Phosphorus 7.0 H (2.3-4.7) mg/dL Albumin 1.5 L (3.5-5.0) g/dL Pituitary panel 10/01/16 Range/Units 07:30 Sodium 133 L (136-145) mEq/L Potassium 3.5 (3.5-4.5) mEq/L Chloride 112 H (98-109) mEq/L Carbon Dioxide 12 L (19-29) mEq/L BUN 53 H (8-26) mg/dL Creatinine 3.02 H (0.72-1.25) mg/dL Glucose 98 (70-99) mg/dL Calcium 7.3 L (8.6-10.8) mg/dL Adrenal panel 10/01/16 Range/Units 07:30 Sodium 133 L (136-145) mEq/L Potassium 3.5 (3.5-4.5) mEq/L Chloride 112 H (98-109) mEq/L Carbon Dioxide 12 L (19-29) mEq/L BUN 53 H (8-26) mg/dL Creatinine 3.02 H (0.72-1.25) mg/dL Glucose 98 (70-99) mg/dL Calcium 7.3 L (8.6-10.8) mg/dL Albumin 1.5 L (3.5-5.0) g/dL Consult Discharge Plan - Plan Referrals: Esdras Jacob MD [Primary Care Provider] - (Web Requested an appointment)
[2016-10-01] MEDS: Famotidine 20 MG TABLET PO SCH (23:04)
[2016-10-01] MEDS: Mirtazapine 15 MG TABLET PO SCH (23:05)
[2016-10-02] MEDS: Piperacillin/Tazobactam 3.375 GM in D5% in Water (Mini-Bag+) 100 ML IVPB SCH ×3 (01:17→23:18)
[2016-10-02] MEDS: Hydrocortisone Sodium Succ 100 MG/2 ML VIAL IVP SCH ×4 (01:17→23:20)
[2016-10-02] MEDS: 0.9 % Sodium Chloride 1,000 ML IVC SCH ×3 (04:47→23:17)
[2016-10-02 05:18] LABS: Hematocrit 32.3 % (37.5-50.1); Hemoglobin 9.9 g/dL (12.9-16.9); Mean Corpuscular HGB Conc 30.7 g/dL (31.6-35.5); Mean Corpuscular Hemoglobin 24.4 pg (28.0-33.3); Mean Corpuscular Volume 79.6 fL (83.0-100.0); Mean Platelet Volume 9.6 fL (9.4-12.4); Nucleated Red Blood Cells 1.4 /100 WBC (0); Platelet Count 125 K/mcL (140-400); Red Blood Count 4.06 M/mcL (4.19-5.50)
[2016-10-02 05:29] LABS: Calcium 7.6 mg/dL (8.6-10.8); Magnesium 1.8 mg/dL (1.6-2.6); Phosphorous 6.9 mg/dL (2.3-4.7); Potassium 3.6 mEq/L (3.5-4.5)
[2016-10-02 05:49] LABS: Albumin 1.5 g/dL (3.5-5.0)
[2016-10-02 05:54] LABS: Lymphocytes # 0.6 K/mcL (0.6-4.6); Monocytes # 0.2 K/mcL (0.0-1.3); Platelet Estimate Decreased (Normal)
[2016-10-02 05:55] LABS: Anisocytosis 3+ (Not Present); Burr Cells 2+ (Not Present); Polychromasia 1+ (Not Present)
[2016-10-02] MEDS ORDERED: *HR* Heparin 5,000 UNIT/ML VIAL SQ SCH (06:00)
[2016-10-02] MEDS: *HR* Heparin 5,000 UNIT/ML VIAL SQ SCH ×2 (06:15→18:21)
[2016-10-02] MEDS ORDERED: Vancomycin 500 MG in D5% in Water (Mini-Bag+) 100 ML IVPB ONE (08:00)
[2016-10-02] MEDS: Carbidopa/Levodopa ER 50/200 TABLET PO SCH ×3 (09:01→20:28)
[2016-10-02] MEDS: Folic Acid 1 MG TABLET PO SCH (09:01)
[2016-10-02] MEDS: rOPINIRole 0.25 MG TABLET PO SCH ×3 (09:01→20:28)
[2016-10-02] MEDS: Lactobacillus 1 EACH CAP.SPRINK PO SCH ×4 (09:01→20:28)
[2016-10-02] MEDS: Norepinephrine 4 MG in D5% in Water 250 ML IVC SCH (09:02)
[2016-10-02] MEDS: CAPECITABINE 150 MG PO SCH ×2 (09:04→20:23)
--- NOTE | 2016-10-02 09:08 | Pulmonology Progress Note ---
<Ildefonso Norton - Last Filed: 10/02/16 10:59> Date of Encounter: 10/02/16 Time of Encounter: 09:08 Assessment and Plan (1) Severe sepsis Current Visit: Yes Status: Acute Severe sepsis with tachypnea, leukopenia, hypotension in the setting of colon cancer with metastasis to multiple organs, chemotherapy, right lower lobe pneumonia. Blood pressure has remained hypotensive. The mean arterial pressure has been fluctuating between 58 and 62. This patient is currently using 2 mcg/m of Levophed. He is also on 100 mils per hour of normal saline. He has poor oral intake of food but is consuming liquids. A recent chest x-ray did not reveal any pneumonia in the right lower lobe. His lung exam revealed mild rhonchi on the left. Continue Zosyn and vancomycin at this time for continuation of treatment. We will also continue running normal saline at 100 milliliters per hour. He was receiving boluses yesterday to keep his blood pressure up. However urine output is poor, and he does have an obstruction and right hydronephrosis for which she is supposed to get a stent placement today. I will continue the maintenance fluids and Levaquin for drip at this time and not administer any fluid boluses as I do not want to fluid overload him, and possible cause a worsening hydronephrosis that could develop into a pyelonephritis that would be detrimental to this patient's recovery due to his immunocompromise state as he has been on chemotherapy. His appetite is still very poor. He has not eaten much of his breakfast this morning. Family does state that they would want a PEG placed if he could not maintain his appetite. We will reevaluate tomorrow.tomorrow. (2) History of colon cancer Current Visit: Yes Status: Chronic Currently being followed by oncology. For now, patient is wishes to continue aggressive cancer treatment as tolerated and as recommended by oncology. 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 His creatinine has slightly increased from 3.02 to 3.07. This is not a significant increase. Maintain a map greater than 60, continue maintenance normal saline at 100 mLs per hour, and monitor creatinine. (5) Unable to ambulate Current Visit: Yes Status: Acute This is a condition which is multifactorial. He has generalized weakness for metastatic cancer, on chemotherapy, has been dehydrated, is deconditioned due to all his conditions, along with having Parkinson's disease. Continue with physical therapy to maximize. (6) Right lower lobe pneumonia Current Visit: Yes Status: Acute This was not evident on the chest x-ray taken 2 days ago. This patient is immunocompromised as he was recently on chemotherapy. Continue vancomycin and Zosyn. Qualifiers: Pneumonia type: due to unspecified organism Qualified Code(s): J18.1 - Lobar pneumonia, unspecified organism (7) Leukopenia Current Visit: Yes Status: Acute This has improved mildly to 2.8. This patient is in an immunocompromised state due to recent chemotherapy. Qualifiers: Leukopenia type: neutropenia Neutropenia type: secondary to cancer chemotherapy Qualified Code(s): D70.1 - Agranulocytosis secondary to cancer chemotherapy (8) Diarrhea Current Visit: Yes Status: Acute Had a significant amount of diarrhea last night. He was given Imodium and this improved condition. Continue taking Imodium. Qualifiers: Diarrhea type: unspecified type Qualified Code(s): R19.7 - Diarrhea, unspecified (9) Parkinsons disease Current Visit: Yes Status: Chronic Continue Sinemet home dose. (10) DVT prophylaxis Current Visit: Yes Status: Acute He is currently nonambulatory and is on heparin 5000 units subcutaneous every 12 hours. Subjective Principal diagnosis: severe sepsis Interval history: Patient did well overnight. Nurse states that he had a few episodes of diarrhea. Nurse states that his blood pressure has maintained a map greater than 60 with just fluid administration. However there was one episode that he had to use minimal Levophed He stated that Imodium made it better. Talking to patient, he has no complaints at this time and denies having any pain anywhere. Objective PUL Vital signs: Last Vital Signs Temp 97.4 F L 10/02/16 07:44 Pulse 82 10/02/16 07:37 Resp 18 10/02/16 07:00 BP 87/50 10/02/16 07:00 Pulse Ox 99 10/02/16 07:00 General appearance: no acute distress, alert, other (Appears comfortable, eating breakfast.) Eyes: nonicteric ENT: oropharynx dry Neck: supple Auscultation: bilateral: clear Cardiovascular: regular rate and rhythm Gastrointestinal: normoactive bowel sounds Integumentary: other (Diffuse pallor) Extremities: pulses normal, cool Musculoskeletal: other (Cachectic, generalized weakness) normal mental status, non-focal exam mood appropriate, affect normal Results - Laboratory Findings CBC and BMP: 10/02/16 05:06 10/02/16 05:06 PT/INR, D-dimer PT 15.2 Seconds (9.4-12.1) H 09/30/16 08:06 Abnormal lab findings: Abnormal lab results WBC 2.8 K/mcL (4.3-11.1) L 10/02/16 05:06 RBC 4.06 M/mcL (4.19-5.50) L 10/02/16 05:06 Hgb 9.9 g/dL (12.9-16.9) L 10/02/16 05:06 Hct 32.3 % (37.5-50.1) L 10/02/16 05:06 MCV 79.6 fL (83.0-100.0) L 10/02/16 05:06 MCH 24.4 pg (28.0-33.3) L 10/02/16 05:06 MCHC 30.7 g/dL (31.6-35.5) L 10/02/16 05:06 Plt Count 125 K/mcL (140-400) L 10/02/16 05:06 Reticulocyte # 0.04 M/mcL (0.05-0.10) L 09/27/16 08:56 Immature Gran % 15.4 % (0-4) H 09/30/16 08:06 Myelocytes % 2.0 % (0) H 10/02/16 05:06 Nucleated RBCs/100 WBC 1.4 /100 WBC (0) H 10/02/16 05:06 Platelet Estimate Decreased (Normal) L 10/02/16 05:06 Clumped Platelets Few (Not Present) A 09/27/16 00:52 Polychromasia 1+ (Not Present) A 10/02/16 05:06 Anisocytosis 3+ (Not Present) A 10/02/16 05:06 Microcytosis Present (Not Present) A 09/26/16 13:22 Macrocytosis Present (Not Present) A 09/28/16 05:09 Ovalocytes 1+ (Not Present) A 09/27/16 00:52 [place] Cells 2+ (Not Present) A 10/02/16 05:06 Acanthocytes (Spur) 1+ (Not Present) A 09/27/16 00:52 Schistocytes 1+ (Not Present) A 09/28/16 05:09 Percent Retic 0.9 % (1.6-2.8) L 09/27/16 08:56 PT 15.2 Seconds (9.4-12.1) H 09/30/16 08:06 Chloride 117 mEq/L (98-109) H 10/02/16 05:06 Carbon Dioxide 10 mEq/L (19-29) L* 10/02/16 05:06 BUN 53 mg/dL (8-26) H 10/02/16 05:06 Creatinine 3.07 mg/dL (0.72-1.25) H 10/02/16 05:06 Est GFR ( Amer) 25 (> 60) L 10/02/16 05:06 Est GFR (Non-Af Amer) 20 (> 60) L 10/02/16 05:06 Glucose 115 mg/dL (70-99) H 10/02/16 05:06 POC Glucose 93 (58-89) H 09/30/16 18:36 Calcium 7.6 mg/dL (8.6-10.8) L 10/02/16 05:06 Phosphorus 6.9 mg/dL (2.3-4.7) H 10/02/16 05:06 Iron 27 mcg/dL (65-175) L 09/27/16 08:56 % Saturation 15 % (20-55) L 09/27/16 08:56 Transferrin 129 mg/dL (174-364) L 09/27/16 08:56 Ferritin 900 ng/ml (22-275) H 09/27/16 08:56 Serum Total Protein 4.4 g/dL (6.0-8.3) L 09/30/16 08:06 Albumin 1.5 g/dL (3.5-5.0) L 10/02/16 05:06 Albumin/Globulin Ratio 0.7 (1.1-2.2) L 09/30/16 08:06 Prealbumin 6.0 mg/dL (18.0-45.0) L 10/02/16 05:06 Vitamin B12 1557 pg/mL (213-816) H 09/27/16 08:56 Urine Clarity Turbid (Clear) A 09/29/16 20:00 Urine Protein 30 mg/dL (Neg-Trace) H 09/29/16 20:00 Urine Glucose (UA) 100 mg/dL (Normal) H 09/29/16 20:00 Urine Ketones Trace mg/dL (Negative) H 09/29/16 20:00 Urine Bilirubin Small (Negative) H 09/29/16 20:00 Ur Leukocyte Esterase Moderate (Negative) H 09/29/16 20:00 Urine Microscopic WBC 5-15 per hpf (0-3) H 09/29/16 20:00 Ur Squamous Epith Cells Many per lpf (None-Few) H 09/29/16 20:00 Urine Bacteria Many per hpf (None-Few) H 09/29/16 20:00 Urine Yeast Few per hpf (None Seen) H 09/29/16 20:00 - Clinical Findings Intake & Output: Intake & Output 10/01/16 10/02/16 10/02/16 23:59 07:59 15:59 Intake Total 1220 / 1220 1100 / 1100 Output Total 3625 / 3625 450 / 450 Balance -2405 / -2405 650 / 650 Weight 64.135 kg Consult Discharge Plan - Plan Referrals: Esdras Jacob MD [Primary Care Provider] - (Web Requested an appointment) <Shelby Isaac - Last Filed: 10/02/16 12:12> Date of Encounter: 10/02/16 Objective PUL Vital signs: Last Vital Signs Temp 97.5 F L 10/02/16 11:56 Pulse 90 10/02/16 11:04 Resp 20 10/02/16 11:00 BP 90/42 10/02/16 11:00 Pulse Ox 97 10/02/16 11:00 Results - Laboratory Findings CBC and BMP: 10/02/16 05:06 10/02/16 05:06 PT/INR, D-dimer PT 15.2 Seconds (9.4-12.1) H 09/30/16 08:06 Abnormal lab findings: Abnormal lab results WBC 2.8 K/mcL (4.3-11.1) L 10/02/16 05:06 RBC 4.06 M/mcL (4.19-5.50) L 10/02/16 05:06 Hgb 9.9 g/dL (12.9-16.9) L 10/02/16 05:06 Hct 32.3 % (37.5-50.1) L 10/02/16 05:06 MCV 79.6 fL (83.0-100.0) L 10/02/16 05:06 MCH 24.4 pg (28.0-33.3) L 10/02/16 05:06 MCHC 30.7 g/dL (31.6-35.5) L 10/02/16 05:06 Plt Count 125 K/mcL (140-400) L 10/02/16 05:06 Reticulocyte # 0.04 M/mcL (0.05-0.10) L 09/27/16 08:56 Immature Gran % 15.4 % (0-4) H 09/30/16 08:06 Myelocytes % 2.0 % (0) H 10/02/16 05:06 Nucleated RBCs/100 WBC 1.4 /100 WBC (0) H 10/02/16 05:06 Platelet Estimate Decreased (Normal) L 10/02/16 05:06 Clumped Platelets Few (Not Present) A 09/27/16 00:52 Polychromasia 1+ (Not Present) A 10/02/16 05:06 Anisocytosis 3+ (Not Present) A 10/02/16 05:06 Microcytosis Present (Not Present) A 09/26/16 13:22 Macrocytosis Present (Not Present) A 09/28/16 05:09 Ovalocytes 1+ (Not Present) A 09/27/16 00:52 [place] Cells 2+ (Not Present) A 10/02/16 05:06 Acanthocytes (Spur) 1+ (Not Present) A 09/27/16 00:52 Schistocytes 1+ (Not Present) A 09/28/16 05:09 Percent Retic 0.9 % (1.6-2.8) L 09/27/16 08:56 PT 15.2 Seconds (9.4-12.1) H 09/30/16 08:06 Chloride 117 mEq/L (98-109) H 10/02/16 05:06 Carbon Dioxide 10 mEq/L (19-29) L* 10/02/16 05:06 BUN 53 mg/dL (8-26) H 10/02/16 05:06 Creatinine 3.07 mg/dL (0.72-1.25) H 10/02/16 05:06 Est GFR ( Amer) 25 (> 60) L 10/02/16 05:06 Est GFR (Non-Af Amer) 20 (> 60) L 10/02/16 05:06 Glucose 115 mg/dL (70-99) H 10/02/16 05:06 POC Glucose 93 (58-89) H 09/30/16 18:36 Calcium 7.6 mg/dL (8.6-10.8) L 10/02/16 05:06 Phosphorus 6.9 mg/dL (2.3-4.7) H 10/02/16 05:06 Iron 27 mcg/dL (65-175) L 09/27/16 08:56 % Saturation 15 % (20-55) L 09/27/16 08:56 Transferrin 129 mg/dL (174-364) L 09/27/16 08:56 Ferritin 900 ng/ml (22-275) H 09/27/16 08:56 Serum Total Protein 4.4 g/dL (6.0-8.3) L 09/30/16 08:06 Albumin 1.5 g/dL (3.5-5.0) L 10/02/16 05:06 Albumin/Globulin Ratio 0.7 (1.1-2.2) L 09/30/16 08:06 Prealbumin 6.0 mg/dL (18.0-45.0) L 10/02/16 05:06 Vitamin B12 1557 pg/mL (213-816) H 09/27/16 08:56 Urine Clarity Turbid (Clear) A 09/29/16 20:00 Urine Protein 30 mg/dL (Neg-Trace) H 09/29/16 20:00 Urine Glucose (UA) 100 mg/dL (Normal) H 09/29/16 20:00 Urine Ketones Trace mg/dL (Negative) H 09/29/16 20:00 Urine Bilirubin Small (Negative) H 09/29/16 20:00 Ur Leukocyte Esterase Moderate (Negative) H 09/29/16 20:00 Urine Microscopic WBC 5-15 per hpf (0-3) H 09/29/16 20:00 Ur Squamous Epith Cells Many per lpf (None-Few) H 09/29/16 20:00 Urine Bacteria Many per hpf (None-Few) H 09/29/16 20:00 Urine Yeast Few per hpf (None Seen) H 09/29/16 20:00 - Clinical Findings Intake & Output: Intake & Output 10/01/16 10/02/16 10/02/16 23:59 07:59 15:59 Intake Total 1220 / 1220 1100 / 1100 Output Total 3625 / 3625 450 / 450 725 / 725 Balance -2405 / -2405 650 / 650 -725 / -725 Weight 64.135 kg 70.2 kg - Attending Attestation I examined this patient and my medical decision-making was reviewed with the Resident Physician. I agree with the documented findings, disposition and treatment plan as described except to the extent set forth below. Patient seen and examined. Labs, radiology, chart personally reviewed. Agree with resident's history and physical, assessment, plan with following comments: CHIEF MEDIA OFFICER: Patient follows commands, Pulmonary: Acceptable oxygenation and ventilation Cardiovascular: Blood pressure is labile and he is on and off on vasopressor. Still not stable to be transferred to the floor. GI: Nutrition per dietary and GI prophylaxis per routine Heme: DVT prophylaxis per routine ID: Continue antibiotics and plan to de-escalation Renal; urine out put and renal funtion reviewed. Urology follow-up. Endorcine: blood glucose is monitored Lines: all lines checked and no evidence of infections Skin: skin care to prevent pressure ulcers per nursing routine care Prognosis remains very poor.
--- NOTE | 2016-10-02 14:41 | Oncology Inp Progress Note ---
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 Off of avastin since cycle 2 due to brain mets. -Plan of care discussed with patient and family at the bedside. He is suppose to be due for chemo in a few days, but in view of the ongoing medical issues, will continue holding chemotherapy until being seen by his primary oncologist as outpatient. Options of management at that time include chemotherapy versus Immunotherapy ( in view of his recent CT revealing findings concerning for disease progression with pulmonary nodes, although other metastatic lesions look stable). (2) Unable to ambulate Current Visit: Yes Status: Acute Assessment and plan: Due to generalized weakness. Probably multifactorial, with parkinson disease, brain mets and steroid use as the main culprits. Code(s): R26.2 - Difficulty in walking, not elsewhere classified SNOMED Code(s ): 052892280 (3) Leukopenia Current Visit: Yes Status: Acute Assessment and plan: More likely due to a combination of chemotherapy and ongoing acute infection/ sepsis. - Neutropenia has resolved. off neupogen Qualifiers: Leukopenia type: neutropenia Neutropenia type: secondary to cancer chemotherapy Qualified Code(s): D70.1 - Agranulocytosis secondary to cancer chemotherapy Code(s): D72.819 - Decreased white blood cell count, unspecified SNOMED Code(s ): 30953136 Oncology: Subj Interval history: Patient seen with his family at bedside (ICU). No significant overnight issues. Reports mild epigastric discomfort, and persistent diarrhea. - Constitutional Vitals: Vital Signs Temp Pulse Resp BP Pulse Ox 10/02/16 12:00 92 18 105/50 99 10/02/16 11:56 97.5 F L 10/02/16 11:04 90 10/02/16 11:00 87 20 90/42 97 10/02/16 10:00 90 18 98/46 100 10/02/16 09:00 92 20 107/56 100 10/02/16 08:00 82 20 84/45 99 10/02/16 07:44 97.4 F L 10/02/16 07:37 82 10/02/16 07:00 82 18 87/50 99 10/02/16 06:00 85 22 77/50 98 10/02/16 05:00 88 18 105/61 98 10/02/16 04:00 80 12 127/59 98 10/02/16 03:53 97.6 F 10/02/16 03:00 79 14 89/44 98 10/02/16 02:00 80 12 100/57 97 10/02/16 01:00 83 16 98/50 100 10/02/16 00:00 84 14 91/54 100 10/01/16 23:00 97.5 F L 90 16 102/56 100 10/01/16 22:00 88 15 101/56 100 10/01/16 21:00 82 12 91/48 100 10/01/16 20:00 97.9 F 90 17 94/48 100 10/01/16 18:00 83 20 116/49 100 10/01/16 17:00 87 21 91/48 100 10/01/16 16:23 97.6 F 10/01/16 16:20 79 20 76/45 100 10/01/16 15:10 82 20 83/43 100 Intake and Output 10/01/16 10/02/16 10/02/16 23:59 07:59 15:59 Intake Total 1220 / 1220 1100 / 1100 0 / 0 Output Total 3625 / 3625 450 / 450 725 / 725 Balance -2405 / -2405 650 / 650 -725 / -725 Intake: IV Fluids 1100 / 1100 1100 / 1100 0.9 % Sodium Chloride 1, 1000 / 1000 1000 / 1000 000 ML @ 100 mls/hr IVC . Q10H [facility] Rx#:[id number] Zosyn 3.375 GM In 100 / 100 100 / 100 Dextrose 5% (Minibag+) 100 ML 100 ML @ 25 mls/hr IVPB Q12H [facility] Rx#: [id number] Oral 120 / 120 0 / 0 Output: Rectal Tube 3200 / 3200 250 / 250 650 / 650 Catheter 425 / 425 200 / 200 75 / 75 Other: Meal Lunch Percent of Meal Consumed 0% Stool Consistency liquid liquid Stool Color Brown Brown Weight 64.135 kg 70.2 kg Patient Weight 10/02/16 23:59 Weight 70.2 kg - Head Head exam: Present: normal inspection - ENT ENT exam: Present: normal exam - Respiratory Respiratory exam: Present: CTAB - Cardiovascular Cardiovascular exam: Present: +S1 - GI/Abdominal GI/Abdominal exam: Present: hyperactive bowel sounds - Extremities Exam Extremities exam: Present: normal inspection - Neurological Exam Neurological exam: Present: alert Oncology: Obj Data - Labs CBC & Chem 7: 10/02/16 05:06 10/02/16 05:06 Labs: Laboratory Results - last 24 hr 10/02/16 10/02/16 10/02/16 05:06 05:06 05:06 WBC 2.8 L RBC 4.06 L Hgb 9.9 L Hct 32.3 L MCV 79.6 L MCH 24.4 L MCHC 30.7 L RDW TNP Plt Count 125 L MPV 9.6 Seg Neutrophils % 70.0 Band Neutrophils % 2.0 Lymphocytes % 20.0 Monocytes % 6.0 Myelocytes % 2.0 H Neutrophils # 2.0 Lymphocytes # 0.6 Monocytes # 0.2 Nucleated RBCs/100 WBC 1.4 H Platelet Estimate Decreased L Polychromasia 1+ A Anisocytosis 3+ A [place] Cells 2+ A Sodium 137 Potassium 3.6 Chloride 117 H Carbon Dioxide 10 L* BUN 53 H Creatinine 3.07 H Est GFR ( Amer) 25 L Est GFR (Non-Af Amer) 20 L BUN/Creatinine Ratio 17 Glucose 115 H Calculated Osmolality 299 Calcium 7.6 L Phosphorus 6.9 H Magnesium 1.8 Albumin 1.5 L Prealbumin 6.0 L - ABG Interpretation ABG results: PT/INR, D-dimer PT 15.2 Seconds (9.4-12.1) H 09/30/16 08:06 Consult Discharge Plan - Plan Referrals: Esdras Jacob MD [Primary Care Provider] - (Web Requested an appointment)
[2016-10-02] MEDS ORDERED: Norepinephrine 4 MG in D5% in Water 250 ML IVC SCH (14:45)
[2016-10-02 17:29] LABS: Adenovirus F 40/41 PCR Not detected (Not detect); Astrovirus PCR Not detected (Not detect); C.difficile Toxin A/B by PCR Not detected (Not detect); Campylobacter by PCR Not detected (Not detect); Cryptosporidium by PCR Not detected (Not detect); Cyclospora cayetanensis PCR Not detected (Not detect); E. coli O157 by PCR Not detected (Not detect); Entamoeba histolytica PCR Not detected (Not detect); Enteroaggregative E.coli(EAEC) Not detected (Not detect); Enteropathogenic E.coli(EPEC) Not detected (Not detect); Enterotoxigenic E.coli (ETEC) Not detected (Not detect); Giardia lamblia PCR Not detected (Not detect); Norovirus GI/GII PCR Not detected (Not detect); Plesiomonas shigelloides PCR Not detected (Not detect); Rotavirus A PCR Not detected (Not detect); Salmonella PCR Not detected (Not detect); Sapovirus PCR Not detected (Not detect); Shig/EnteroinvasiveE coli EIEC Not detected (Not detect); Shigalike tox-prod E coli STEC Not detected (Not detect); Vibrio PCR Not detected (Not detect); Vibrio cholerae PCR Not detected (Not detect); Yersinia enterocolitica PCR Not detected (Not detect)
--- NOTE | 2016-10-02 17:45 | Urology Progress Note ---
Date of Encounter: 10/02/16 Time of Encounter: 17:42 - Assessment and Plan (1) Hydronephrosis Current Visit: Yes Status: Acute Assessment and plan: Right hydronephrosis in a patient with metastatic colon cancer on pressors. I was not able to reach any family members. I am holding off on placing a stent unless his family is willing to provide consent and understand what would likely be of minimal benefit to his overall outcome. I will follow along. Qualifiers: Qualified Code(s): N13.30 - Unspecified hydronephrosis (2) BPH w urinary obs/LUTS Current Visit: Yes Status: Acute Progress Note Narrative: 71 year old man with hypotension and right hydronephrosis. I tried calling family members, Jesus and Rosalia, today, but there was no answer. He remains hypotensive on pressors. Objective Initial Vital Signs Temp Pulse Resp BP Pulse Ox 97.8 F 82 20 124/81 98 09/26/16 12:55 09/26/16 12:55 09/26/16 12:55 09/26/16 12:55 09/26/16 12:55 - General physical appearance Present: well developed, well nourished, no distress - Respiratory Present: normal respiratory effort - Abdomen Present: soft - Genitourinary Urine Appearance: Present: Clear - Labs 10/02/16 05:06 10/02/16 05:06 Diabetes panel 10/02/16 Range/Units 05:06 Sodium 137 (136-145) mEq/L Potassium 3.6 (3.5-4.5) mEq/L Chloride 117 H (98-109) mEq/L Carbon Dioxide 10 L* (19-29) mEq/L BUN 53 H (8-26) mg/dL Creatinine 3.07 H (0.72-1.25) mg/dL Glucose 115 H (70-99) mg/dL Calcium 7.6 L (8.6-10.8) mg/dL Albumin 1.5 L (3.5-5.0) g/dL Calcium panel 10/02/16 Range/Units 05:06 Calcium 7.6 L (8.6-10.8) mg/dL Phosphorus 6.9 H (2.3-4.7) mg/dL Albumin 1.5 L (3.5-5.0) g/dL Pituitary panel 10/02/16 Range/Units 05:06 Sodium 137 (136-145) mEq/L Potassium 3.6 (3.5-4.5) mEq/L Chloride 117 H (98-109) mEq/L Carbon Dioxide 10 L* (19-29) mEq/L BUN 53 H (8-26) mg/dL Creatinine 3.07 H (0.72-1.25) mg/dL Glucose 115 H (70-99) mg/dL Calcium 7.6 L (8.6-10.8) mg/dL Adrenal panel 10/02/16 Range/Units 05:06 Sodium 137 (136-145) mEq/L Potassium 3.6 (3.5-4.5) mEq/L Chloride 117 H (98-109) mEq/L Carbon Dioxide 10 L* (19-29) mEq/L BUN 53 H (8-26) mg/dL Creatinine 3.07 H (0.72-1.25) mg/dL Glucose 115 H (70-99) mg/dL Calcium 7.6 L (8.6-10.8) mg/dL Albumin 1.5 L (3.5-5.0) g/dL Consult Discharge Plan - Plan Referrals: Esdras Jacob MD [Primary Care Provider] - (Web Requested an appointment)
[2016-10-02] MEDS: Famotidine 20 MG TABLET PO SCH (20:28)
[2016-10-02] MEDS: Mirtazapine 15 MG TABLET PO SCH (20:29)
[2016-10-03 03:58] LABS: Hematocrit 32.8 % (37.5-50.1); Hemoglobin 10.1 g/dL (12.9-16.9); Mean Corpuscular HGB Conc 30.8 g/dL (31.6-35.5); Mean Corpuscular Hemoglobin 24.4 pg (28.0-33.3); Mean Corpuscular Volume 79.2 fL (83.0-100.0); Mean Platelet Volume 9.3 fL (9.4-12.4); Nucleated Red Blood Cells 0.5 /100 WBC (0); Platelet Count 114 K/mcL (140-400); Red Blood Count 4.14 M/mcL (4.19-5.50); Red Cell Distribution Width 31.9 % (11.5-14.5)
[2016-10-03 04:01] LABS: Calcium 7.8 mg/dL (8.6-10.8); Magnesium 1.9 mg/dL (1.6-2.6); Phosphorous 6.7 mg/dL (2.3-4.7); Potassium 3.5 mEq/L (3.5-4.5)
[2016-10-03 04:02] LABS: Albumin 1.6 g/dL (3.5-5.0)
[2016-10-03] MEDS ORDERED: Sodium Bicarbonate 50 MEQ in 0.45 % Sodium Chloride 1,000 ML IVC SCH (04:15)
[2016-10-03] MEDS: *HR* Heparin 5,000 UNIT/ML VIAL SQ SCH (04:40)
[2016-10-03 07:01] LABS: Lymphocytes # 0.4 K/mcL (0.6-4.6); Monocytes # 0.2 K/mcL (0.0-1.3); Neutrophils # 2.7 K/mcL (1.6-8.9)
[2016-10-03 07:03] LABS: Anisocytosis 2+ (Not Present); Macrocytosis Present (Not Present)
[2016-10-03 07:04] LABS: Microcytosis Present (Not Present); Ovalocytes 1+ (Not Present); Polychromasia 1+ (Not Present); Toxic Granulation Present (Not Present)
[2016-10-03 07:06] LABS: Burr Cells 2+ (Not Present); Large Platelets Present (Not Present); Platelet Estimate Slight Decrease (Normal)
--- NOTE | 2016-10-03 07:13 | Pulmonology Progress Note ---
<Esdras Pope - Last Filed: 10/03/16 10:16> Date of Encounter: 10/03/16 Time of Encounter: 07:13 Assessment and Plan (1) Severe sepsis Current Visit: Yes Status: Acute Severe sepsis with tachypnea, leukopenia, hypertension in the setting of colon cancer with metastasis to multiple organs, chemotherapy, right lower lobe pneumonia seen on CT scan on 09/30/2016. Decreased aeration in the right lower lobe on exam along with bilateral lower lobe wheezing/rhonchi. Blood pressure requirements increased overnight. Patient's carbon dioxide was 8 this morning. He was started on bicarbonate drip by hospitalist. His blood pressure requirements also increased overnight, he was increased to norepinephrine 5 g per hour. However, this morning his bicarbonate drip was canceled. He was also able to be weaned down to 3 mcg/h of norepinephrine. Her pressure currently 90s over 60s. Currently, the patient seems to be more confused than when I saw him 2 days ago. He will answer basic yes and no questions but will not go into any additional detail on further questioning. Currently denies any chest pain, shortness breath, nausea, vomiting, abdominal pain. Poor appetite. Continue Zosyn and vancomycin for RLL pneumonia IV hydration with maintenance LR and LR boluses PRN, levophed titration PRN - patient currently has a right hydronephrosis due to metastatic lesion encroaching on the right ureter. Family currently deciding on whether or not a stent will be placed in the right ureter. Urology following and will try to reach family again today. Yesterday, according to notes the urologist was not able to reach family to get consent for this bedside procedure. Blood cultures pending - NGTD Start Megace to improve appetite Palliative care and I have hled family meeting on 10/01/16 with patient, his , two daughters, two step daughters. Patient and family has confirmed DNRCCA/ DNI. Patient wants aggressive blood pressure control, aggressive cancer treatment (as tolerated), possible ureteral stent on the right due to impingement by metastatic tumor and thus causing right hydronephrosis. They did not want the patient transferred out of the ICU at this time, did not feel comfortable with the patient going to 2 N at this time. Current diagnoses, care , future care was discussed with the patient and all family members present. (2) History of colon cancer Current Visit: Yes Status: Chronic Currently being followed by oncology. Appreciate recs. For now, patient and wished to continue aggressive cancer treatment as tolerated and as recommended by oncology. 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 Continue vancomycin and Zosyn. Qualifiers: Pneumonia type: due to unspecified organism Qualified Code(s): J18.1 - Lobar pneumonia, unspecified organism (5) Leukopenia Current Visit: Yes Status: Acute Secondary to previous chemotherapy. Improved today to 3.7. Will continue to monitor. On empiric antibiotics of vancomycin, zosyn for pneumonia. Qualifiers: Leukopenia type: neutropenia Neutropenia type: secondary to cancer chemotherapy Qualified Code(s): D70.1 - Agranulocytosis secondary to cancer chemotherapy (6) Hyperchloremia Current Visit: Yes Status: Acute Likely secondary to normal saline maintenance and normal saline boluses. Chloride currently at 117. Patient likely has a normal anion gap acidosis secondary to hyper chloremia Maintenance was briefly stopped overnight by hospitalist. However, patient is still having poor intake and appears dry on exam. We will start the patient on lactated Ringer's maintenance rate to help reduce hyperchloremia (7) Acidosis Current Visit: Yes Status: Acute Patient has normal anion gap hyperchloremic acidosis. PH 7.11 on VBG. CO2 29. HCO3 9.2. Likely secondary to GI losses from diarrhea. Patient has also been receiving resuscitation with normal saline maintenance fluid and boluses. Continue supportive care for diarrhea, this is improving with loperamide and fluids. Start lactated Ringer's in replacement of normal saline. We will started 100 mL per hour. This will also help with patient's potassium which is in low normal range. Patient was given bicarbonate push overnight and started on bicarbonate drip by hospitalist. This was then continued this morning. We will proceed with the above treatment and continue to monitor. May need to give bicarbonate pushes PRN (8) CLIF (acute kidney injury) Current Visit: Yes Status: Acute Secondary to dehydration and hypovolemia in setting of septic shock. He also has right hydronephrosis secondary to metastatic lesion encroaching on right ureter. Marrufo in place Will continue hydration with LR boluses PRN Urology following - family will decide if ureteral stent will be placed at bedside for right hydronephrosis. Per noting yesterday, Urologist tried to contact family for consent yesterday but was unable to reach them. (9) Unable to ambulate Current Visit: Yes Status: Acute Multifactoral generalized weakness from metastatic cancer, chemotherapy, dehydration, generalized muscle deconditioning, Parkinsons. Continue supportive care PT/OT consulted Palliative care on board to discuss goals of care and CODE STATUS. Patient is confirmed DNR/DNI. Patient's is POA (10) Diarrhea Current Visit: Yes Status: Acute C diff negative. Rectal tube placed for management. Slowly improving after started on loperamide. Supportive care at this time with fluids. Continue loperamide Qualifiers: Diarrhea type: unspecified type Qualified Code(s): R19.7 - Diarrhea, unspecified (11) Parkinsons disease Current Visit: Yes Status: Chronic Continue Sinemet home dose (12) Paroxysmal SVT (supraventricular tachycardia) Current Visit: Yes Status: Acute Patient had episode of paroxysmal SVT this morning. EKG was obtained and showed sinus tachycardia at 138. No acute ST changes. No epinephrine was decreased. Vagal maneuvers were also utilized. Patient's pulse shortly reduced to low 100s. We will continue to monitor. (13) DVT prophylaxis Current Visit: Yes Status: Acute heparin 5000 units every 12 hours Subjective Principal diagnosis: severe sepsis Interval history: Patient's carbon dioxide was 8 this morning. He was started on bicarbonate drip by hospitalist. His blood pressure requirements also increased overnight, he was increased to norepinephrine 5 g per hour. However, this morning his bicarbonate drip was canceled. He was also able to be weaned down to 3 mcg/h of norepinephrine. Currently, the patient seems to be more confused than when I saw him 2 days ago. He will answer basic yes and no questions but will not go into any additional detail on further questioning. Currently denies any chest pain, shortness breath, nausea, vomiting, abdominal pain. Objective PUL Vital signs: Last Vital Signs Temp 97.6 F 10/03/16 04:39 Pulse 102 10/03/16 06:00 Resp 22 10/03/16 06:00 BP 135/67 10/03/16 06:00 Pulse Ox 98 10/03/16 06:00 General appearance: no acute distress, other (Cachectic, somewhat sleepy on exam ) Eyes: nonicteric ENT: oropharynx dry Neck: supple Effort: normal Inspection: normal Auscultation: bilateral: wheezes (Mild bilateral lower lobe, decreased aeration RLL) Cardiovascular: regular rate and rhythm Gastrointestinal: normoactive bowel sounds, non-distended, scaphoid abdomen Integumentary: other (Diffuse pallor) Extremities: no edema, no clubbing, cool Musculoskeletal: other (Cachectic); generalized weakness; bilateral LE weakness , +3-4/5 strength in all ROM of LE bilaterally normal mental status, non-focal exam mood appropriate, affect rosa Results - Laboratory Findings CBC and BMP: 10/03/16 03:30 10/03/16 03:30 PT/INR, D-dimer PT 15.2 Seconds (9.4-12.1) H 09/30/16 08:06 Abnormal lab findings: Abnormal lab results WBC 3.7 K/mcL (4.3-11.1) L 10/03/16 03:30 RBC 4.14 M/mcL (4.19-5.50) L 10/03/16 03:30 Hgb 10.1 g/dL (12.9-16.9) L 10/03/16 03:30 Hct 32.8 % (37.5-50.1) L 10/03/16 03:30 MCV 79.2 fL (83.0-100.0) L 10/03/16 03:30 MCH 24.4 pg (28.0-33.3) L 10/03/16 03:30 MCHC 30.8 g/dL (31.6-35.5) L 10/03/16 03:30 RDW 31.9 % (11.5-14.5) H 10/03/16 03:30 Plt Count 114 K/mcL (140-400) L 10/03/16 03:30 MPV 9.3 fL (9.4-12.4) L 10/03/16 03:30 Reticulocyte # 0.04 M/mcL (0.05-0.10) L 09/27/16 08:56 Immature Gran % 15.4 % (0-4) H 09/30/16 08:06 Band Neutrophils % 8.0 % (0-4) H 10/03/16 03:30 Myelocytes % 8.0 % (0) H 10/03/16 03:30 Promyelocytes % 2.0 % (0) H 10/03/16 03:30 Lymphocytes # 0.4 K/mcL (0.6-4.6) L 10/03/16 03:30 Nucleated RBCs/100 WBC 0.5 /100 WBC (0) H 10/03/16 03:30 Toxic Granulation Present (Not Present) A 10/03/16 03:30 Platelet Estimate Slight Decrease (Normal) L 10/03/16 03:30 Clumped Platelets Few (Not Present) A 09/27/16 00:52 Large Platelets Present (Not Present) A 10/03/16 03:30 Polychromasia 1+ (Not Present) A 10/03/16 03:30 Anisocytosis 2+ (Not Present) A 10/03/16 03:30 Microcytosis Present (Not Present) A 10/03/16 03:30 Macrocytosis Present (Not Present) A 10/03/16 03:30 Ovalocytes 1+ (Not Present) A 10/03/16 03:30 [place] Cells 2+ (Not Present) A 10/03/16 03:30 Acanthocytes (Spur) 1+ (Not Present) A 09/27/16 00:52 Schistocytes 1+ (Not Present) A 09/28/16 05:09 Percent Retic 0.9 % (1.6-2.8) L 09/27/16 08:56 PT 15.2 Seconds (9.4-12.1) H 09/30/16 08:06 Chloride 117 mEq/L (98-109) H 10/03/16 03:30 Carbon Dioxide 8 mEq/L (19-29) L* 10/03/16 03:30 BUN 56 mg/dL (8-26) H 10/03/16 03:30 Creatinine 3.75 mg/dL (0.72-1.25) H 10/03/16 03:30 Est GFR ( Amer) 20 (> 60) L 10/03/16 03:30 Est GFR (Non-Af Amer) 16 (> 60) L 10/03/16 03:30 Glucose 108 mg/dL (70-99) H 10/03/16 03:30 POC Glucose 93 (58-89) H 09/30/16 18:36 Calcium 7.8 mg/dL (8.6-10.8) L 10/03/16 03:30 Phosphorus 6.7 mg/dL (2.3-4.7) H 10/03/16 03:30 Iron 27 mcg/dL (65-175) L 09/27/16 08:56 % Saturation 15 % (20-55) L 09/27/16 08:56 Transferrin 129 mg/dL (174-364) L 09/27/16 08:56 Ferritin 900 ng/ml (22-275) H 09/27/16 08:56 Serum Total Protein 4.4 g/dL (6.0-8.3) L 09/30/16 08:06 Albumin 1.6 g/dL (3.5-5.0) L 10/03/16 03:30 Albumin/Globulin Ratio 0.7 (1.1-2.2) L 09/30/16 08:06 Prealbumin 7.0 mg/dL (18.0-45.0) L 10/03/16 03:30 Vitamin B12 1557 pg/mL (213-816) H 09/27/16 08:56 Urine Clarity Turbid (Clear) A 09/29/16 20:00 Urine Protein 30 mg/dL (Neg-Trace) H 09/29/16 20:00 Urine Glucose (UA) 100 mg/dL (Normal) H 09/29/16 20:00 Urine Ketones Trace mg/dL (Negative) H 09/29/16 20:00 Urine Bilirubin Small (Negative) H 09/29/16 20:00 Ur Leukocyte Esterase Moderate (Negative) H 09/29/16 20:00 Urine Microscopic WBC 5-15 per hpf (0-3) H 09/29/16 20:00 Ur Squamous Epith Cells Many per lpf (None-Few) H 09/29/16 20:00 Urine Bacteria Many per hpf (None-Few) H 09/29/16 20:00 Urine Yeast Few per hpf (None Seen) H 09/29/16 20:00 Vancomycin Trough 20.4 mcg/mL (10-20) H* 10/03/16 03:30 - Clinical Findings Intake & Output: Intake & Output 10/02/16 10/02/16 10/03/16 15:59 23:59 07:59 Intake Total 1000 / 1000 1115 / 1115 747 / 747 Output Total 725 / 725 550 / 550 125 / 125 Balance 275 / 275 565 / 565 622 / 622 Weight 70.2 kg 68.956 kg Consult Discharge Plan - Plan Referrals: Esdras Jacob MD [Primary Care Provider] - (Web Requested an appointment) <Shelby Isaac Jacqui - Last Filed: 10/03/16 10:59> Date of Encounter: 10/03/16 Objective PUL Vital signs: Last Vital Signs Temp 97.4 F L 10/03/16 07:32 Pulse 96 10/03/16 10:00 Resp 18 10/03/16 10:00 BP 86/58 10/03/16 10:00 Pulse Ox 96 10/03/16 10:00 Results - Laboratory Findings CBC and BMP: 10/03/16 03:30 10/03/16 03:30 PT/INR, D-dimer PT 15.2 Seconds (9.4-12.1) H 09/30/16 08:06 Abnormal lab findings: Abnormal lab results WBC 3.7 K/mcL (4.3-11.1) L 10/03/16 03:30 RBC 4.14 M/mcL (4.19-5.50) L 10/03/16 03:30 Hgb 10.1 g/dL (12.9-16.9) L 10/03/16 03:30 Hct 32.8 % (37.5-50.1) L 10/03/16 03:30 MCV 79.2 fL (83.0-100.0) L 10/03/16 03:30 MCH 24.4 pg (28.0-33.3) L 10/03/16 03:30 MCHC 30.8 g/dL (31.6-35.5) L 10/03/16 03:30 RDW 31.9 % (11.5-14.5) H 10/03/16 03:30 Plt Count 114 K/mcL (140-400) L 10/03/16 03:30 MPV 9.3 fL (9.4-12.4) L 10/03/16 03:30 Reticulocyte # 0.04 M/mcL (0.05-0.10) L 09/27/16 08:56 Immature Gran % 15.4 % (0-4) H 09/30/16 08:06 Band Neutrophils % 8.0 % (0-4) H 10/03/16 03:30 Myelocytes % 8.0 % (0) H 10/03/16 03:30 Promyelocytes % 2.0 % (0) H 10/03/16 03:30 Lymphocytes # 0.4 K/mcL (0.6-4.6) L 10/03/16 03:30 Nucleated RBCs/100 WBC 0.5 /100 WBC (0) H 10/03/16 03:30 Toxic Granulation Present (Not Present) A 10/03/16 03:30 Platelet Estimate Slight Decrease (Normal) L 10/03/16 03:30 Clumped Platelets Few (Not Present) A 09/27/16 00:52 Large Platelets Present (Not Present) A 10/03/16 03:30 Polychromasia 1+ (Not Present) A 10/03/16 03:30 Anisocytosis 2+ (Not Present) A 10/03/16 03:30 Microcytosis Present (Not Present) A 10/03/16 03:30 Macrocytosis Present (Not Present) A 10/03/16 03:30 Ovalocytes 1+ (Not Present) A 10/03/16 03:30 [place] Cells 2+ (Not Present) A 10/03/16 03:30 Acanthocytes (Spur) 1+ (Not Present) A 09/27/16 00:52 Schistocytes 1+ (Not Present) A 09/28/16 05:09 Percent Retic 0.9 % (1.6-2.8) L 09/27/16 08:56 PT 15.2 Seconds (9.4-12.1) H 09/30/16 08:06 VBG pH 7.11 pH Units (7.32-7.42) L* 10/03/16 08:20 VBG pCO2 29 mmHg (41-51) L 10/03/16 08:20 VBG pO2 143 mmHg (25-40) H 10/03/16 08:20 VBG HCO3 9.2 mEq/L (21-27) L 10/03/16 08:20 Chloride 117 mEq/L (98-109) H 10/03/16 03:30 Carbon Dioxide 8 mEq/L (19-29) L* 10/03/16 03:30 BUN 56 mg/dL (8-26) H 10/03/16 03:30 Creatinine 3.75 mg/dL (0.72-1.25) H 10/03/16 03:30 Est GFR ( Amer) 20 (> 60) L 10/03/16 03:30 Est GFR (Non-Af Amer) 16 (> 60) L 10/03/16 03:30 Glucose 108 mg/dL (70-99) H 10/03/16 03:30 POC Glucose 93 (58-89) H 09/30/16 18:36 Calcium 7.8 mg/dL (8.6-10.8) L 10/03/16 03:30 Phosphorus 6.7 mg/dL (2.3-4.7) H 10/03/16 03:30 Iron 27 mcg/dL (65-175) L 09/27/16 08:56 % Saturation 15 % (20-55) L 09/27/16 08:56 Transferrin 129 mg/dL (174-364) L 09/27/16 08:56 Ferritin 900 ng/ml (22-275) H 09/27/16 08:56 Serum Total Protein 4.4 g/dL (6.0-8.3) L 09/30/16 08:06 Albumin 1.6 g/dL (3.5-5.0) L 10/03/16 03:30 Albumin/Globulin Ratio 0.7 (1.1-2.2) L 09/30/16 08:06 Prealbumin 7.0 mg/dL (18.0-45.0) L 10/03/16 03:30 Vitamin B12 1557 pg/mL (213-816) H 09/27/16 08:56 Urine Clarity Turbid (Clear) A 09/29/16 20:00 Urine Protein 30 mg/dL (Neg-Trace) H 09/29/16 20:00 Urine Glucose (UA) 100 mg/dL (Normal) H 09/29/16 20:00 Urine Ketones Trace mg/dL (Negative) H 09/29/16 20:00 Urine Bilirubin Small (Negative) H 09/29/16 20:00 Ur Leukocyte Esterase Moderate (Negative) H 09/29/16 20:00 Urine Microscopic WBC 5-15 per hpf (0-3) H 09/29/16 20:00 Ur Squamous Epith Cells Many per lpf (None-Few) H 09/29/16 20:00 Urine Bacteria Many per hpf (None-Few) H 09/29/16 20:00 Urine Yeast Few per hpf (None Seen) H 09/29/16 20:00 Vancomycin Trough 20.4 mcg/mL (10-20) H* 10/03/16 03:30 - Clinical Findings Intake & Output: Intake & Output 10/02/16 10/03/16 10/03/16 23:59 07:59 15:59 Intake Total 1115 / 1115 747 / 747 Output Total 550 / 550 200 / 200 Balance 565 / 565 547 / 547 Weight 68.956 kg - Attending Attestation I examined this patient and my medical decision-making was reviewed with the Resident Physician. I agree with the documented findings, disposition and treatment plan as described except to the extent set forth below. Patient seen and examined. Labs, radiology, chart personally reviewed. 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 Pulmonary: Acceptable oxygenation and ventilation. Cardiovascular: Need for vasopressors fluctuate and still need fluid resuscitation GI: Nutrition per dietary and GI prophylaxis per routine Heme: DVT prophylaxis per routine ID: Continue antibiotics and plan to de-escalation Renal; urine out put and renal funtion reviewed. Change IV fluid due to hyperchloremic non-gap acidosis from fluid resuscitation. Endorcine: blood glucose is monitored Lines: all lines checked and no evidence of infections Skin: skin care to prevent pressure ulcers per nursing routine care Prognosis remained poor and due to need for vasopressor and family asking to be aggressive with treatment of blood pressure, patient remain in ICU. Another discussion with the important when family arrives to discuss goals.
[2016-10-03] MEDS: rOPINIRole 0.25 MG TABLET PO SCH ×3 (08:07→23:45)
[2016-10-03] MEDS: Hydrocortisone Sodium Succ 100 MG/2 ML VIAL IVP SCH ×2 (08:08→23:46)
[2016-10-03] MEDS: Lactobacillus 1 EACH CAP.SPRINK PO SCH ×3 (08:08→23:46)
[2016-10-03] MEDS: Folic Acid 1 MG TABLET PO SCH (08:08)
[2016-10-03] MEDS: Carbidopa/Levodopa ER 50/200 TABLET PO SCH ×3 (08:08→23:46)
[2016-10-03] MEDS: CAPECITABINE 150 MG PO SCH (08:09)
[2016-10-03 08:28] LABS: VBG HCO3 9.2 mEq/L (21-27)
[2016-10-03] MEDS ORDERED: Ringers Solution, Lactated 1,000 ML IVC SCH (08:30)
[2016-10-03 08:35] LABS: VBG PH 7.11 pH Units (7.32-7.42)
[2016-10-03] MEDS ORDERED: Megestrol Acetate 400 MG/10 ML UDC PO SCH (09:00)
--- NOTE | 2016-10-03 09:15 | Urology Progress Note ---
Date of Encounter: 10/03/16 Time of Encounter: 09:12 - Assessment and Plan (1) Hydronephrosis Current Visit: Yes Status: Acute Assessment and plan: Right hydronephrosis. 1. Will hold off on stent unless family decides to have me place it at the bedside. Qualifiers: Qualified Code(s): N13.30 - Unspecified hydronephrosis (2) BPH w urinary obs/LUTS Current Visit: Yes Status: Acute Progress Note Narrative: Patient seen today. Creatinine christopher to 3.75. Objective Initial Vital Signs Temp Pulse Resp BP Pulse Ox 97.8 F 82 20 124/81 98 09/26/16 12:55 09/26/16 12:55 09/26/16 12:55 09/26/16 12:55 09/26/16 12:55 - General physical appearance Present: well developed, well nourished, no distress - Genitourinary Urine Appearance: Present: Clear - Labs 10/03/16 03:30 10/03/16 03:30 Diabetes panel 10/03/16 Range/Units 03:30 Sodium 137 (136-145) mEq/L Potassium 3.5 (3.5-4.5) mEq/L Chloride 117 H (98-109) mEq/L Carbon Dioxide 8 L* (19-29) mEq/L BUN 56 H (8-26) mg/dL Creatinine 3.75 H (0.72-1.25) mg/dL Glucose 108 H (70-99) mg/dL Calcium 7.8 L (8.6-10.8) mg/dL Albumin 1.6 L (3.5-5.0) g/dL Calcium panel 10/03/16 Range/Units 03:30 Calcium 7.8 L (8.6-10.8) mg/dL Phosphorus 6.7 H (2.3-4.7) mg/dL Albumin 1.6 L (3.5-5.0) g/dL Pituitary panel 10/03/16 Range/Units 03:30 Sodium 137 (136-145) mEq/L Potassium 3.5 (3.5-4.5) mEq/L Chloride 117 H (98-109) mEq/L Carbon Dioxide 8 L* (19-29) mEq/L BUN 56 H (8-26) mg/dL Creatinine 3.75 H (0.72-1.25) mg/dL Glucose 108 H (70-99) mg/dL Calcium 7.8 L (8.6-10.8) mg/dL Adrenal panel 10/03/16 Range/Units 03:30 Sodium 137 (136-145) mEq/L Potassium 3.5 (3.5-4.5) mEq/L Chloride 117 H (98-109) mEq/L Carbon Dioxide 8 L* (19-29) mEq/L BUN 56 H (8-26) mg/dL Creatinine 3.75 H (0.72-1.25) mg/dL Glucose 108 H (70-99) mg/dL Calcium 7.8 L (8.6-10.8) mg/dL Albumin 1.6 L (3.5-5.0) g/dL Consult Discharge Plan - Plan Referrals: Esdras Jacob MD [Primary Care Provider] - (Web Requested an appointment)
--- NOTE | 2016-10-03 14:14 | Event Note ---
<Esdras Pope - Last Filed: 10/03/16 14:11> Date of Encounter: 10/03/16 Time of Encounter: 14:11 Family meeting was held with (AKIKO), daughter Kenya, and Ree with Palliative Care team. Family and patient have decided on comfort care. They have requested that patient be transferred to palliative care floor for further care and kept comfortable. Patient is now DNR-CC/DNI. Pressors, antibiotics, will be withdrawn at this time. Palliative care has discussed hospice with the patient and family, this will be arranged with palliative care team. <Shelby Isaac - Last Filed: 10/04/16 09:03> Date of Encounter: 10/04/16 This is discussed with the resident and agree with the plan.
[2016-10-03] MEDS ORDERED: *HR* FentaNYL (PF) 100 MCG/2 ML VIAL IVP PRN (14:15)
--- NOTE | 2016-10-03 14:16 | Palliative Progress Note ---
Date of Encounter: 10/03/16 Time of Encounter: 14:14 - Assessment and plan (1) Counseling regarding advanced care planning and goals of care Current Visit: Yes Status: Acute Assessment and plan: Goals of care discussion with the patient's spouse and daughter (Mr. Collado remains confused). Goals of care changed to DNR-CC. Family has a goal of comfort care and understand that his life may be limited. Discussed plan of care, comfort measures. Mr. Collado will be transferred to the palliative care unit. director of medical services will follow for discharge needs. (2) Severe sepsis Current Visit: Yes Status: Acute Assessment and plan: Will discontinue further aggressive treatment. (3) Cancer related pain Current Visit: No Status: Acute Assessment and plan: Due to renal function, avoid Morphine. Will start Fentanyl 25mcg IV every hour as needed if unable to take oral medications. [place] PRN as long as he is able to swallow medications. (4) Protein calorie malnutrition Current Visit: Yes Status: Acute Assessment and plan: Goal is comfort feeding. Patient requesting [employer]. Qualifiers: Protein-calorie malnutrition severity: unspecified severity Qualified Code( s): E46 - Unspecified protein-calorie malnutrition - Time Spent With Patient Total time spent is greater than 50% in coordination of care (as documented) at patient's floor/unit and/or counseling patient: - Subjective Interval history: Mr. Collado is sitting up in bed requesting a beer. He reports some back pain. - Constitutional Vitals: Abnormal lab results WBC 3.7 K/mcL (4.3-11.1) L 10/03/16 03:30 RBC 4.14 M/mcL (4.19-5.50) L 10/03/16 03:30 Hgb 10.1 g/dL (12.9-16.9) L 10/03/16 03:30 Hct 32.8 % (37.5-50.1) L 10/03/16 03:30 MCV 79.2 fL (83.0-100.0) L 10/03/16 03:30 MCH 24.4 pg (28.0-33.3) L 10/03/16 03:30 MCHC 30.8 g/dL (31.6-35.5) L 10/03/16 03:30 RDW 31.9 % (11.5-14.5) H 10/03/16 03:30 Plt Count 114 K/mcL (140-400) L 10/03/16 03:30 MPV 9.3 fL (9.4-12.4) L 10/03/16 03:30 Reticulocyte # 0.04 M/mcL (0.05-0.10) L 09/27/16 08:56 Immature Gran % 15.4 % (0-4) H 09/30/16 08:06 Band Neutrophils % 8.0 % (0-4) H 10/03/16 03:30 Myelocytes % 8.0 % (0) H 10/03/16 03:30 Promyelocytes % 2.0 % (0) H 10/03/16 03:30 Lymphocytes # 0.4 K/mcL (0.6-4.6) L 10/03/16 03:30 Nucleated RBCs/100 WBC 0.5 /100 WBC (0) H 10/03/16 03:30 Toxic Granulation Present (Not Present) A 10/03/16 03:30 Platelet Estimate Slight Decrease (Normal) L 10/03/16 03:30 Clumped Platelets Few (Not Present) A 09/27/16 00:52 Large Platelets Present (Not Present) A 10/03/16 03:30 Polychromasia 1+ (Not Present) A 10/03/16 03:30 Anisocytosis 2+ (Not Present) A 10/03/16 03:30 Microcytosis Present (Not Present) A 10/03/16 03:30 Macrocytosis Present (Not Present) A 10/03/16 03:30 Ovalocytes 1+ (Not Present) A 10/03/16 03:30 [place] Cells 2+ (Not Present) A 10/03/16 03:30 Acanthocytes (Spur) 1+ (Not Present) A 09/27/16 00:52 Schistocytes 1+ (Not Present) A 09/28/16 05:09 Percent Retic 0.9 % (1.6-2.8) L 09/27/16 08:56 PT 15.2 Seconds (9.4-12.1) H 09/30/16 08:06 VBG pH 7.11 pH Units (7.32-7.42) L* 10/03/16 08:20 VBG pCO2 29 mmHg (41-51) L 10/03/16 08:20 VBG pO2 143 mmHg (25-40) H 10/03/16 08:20 VBG HCO3 9.2 mEq/L (21-27) L 10/03/16 08:20 Chloride 117 mEq/L (98-109) H 10/03/16 03:30 Carbon Dioxide 8 mEq/L (19-29) L* 10/03/16 03:30 BUN 56 mg/dL (8-26) H 10/03/16 03:30 Creatinine 3.75 mg/dL (0.72-1.25) H 10/03/16 03:30 Est GFR ( Amer) 20 (> 60) L 10/03/16 03:30 Est GFR (Non-Af Amer) 16 (> 60) L 10/03/16 03:30 Glucose 108 mg/dL (70-99) H 10/03/16 03:30 POC Glucose 93 (58-89) H 09/30/16 18:36 Calcium 7.8 mg/dL (8.6-10.8) L 10/03/16 03:30 Phosphorus 6.7 mg/dL (2.3-4.7) H 10/03/16 03:30 Iron 27 mcg/dL (65-175) L 09/27/16 08:56 % Saturation 15 % (20-55) L 09/27/16 08:56 Transferrin 129 mg/dL (174-364) L 09/27/16 08:56 Ferritin 900 ng/ml (22-275) H 09/27/16 08:56 Serum Total Protein 4.4 g/dL (6.0-8.3) L 09/30/16 08:06 Albumin 1.6 g/dL (3.5-5.0) L 10/03/16 03:30 Albumin/Globulin Ratio 0.7 (1.1-2.2) L 09/30/16 08:06 Prealbumin 7.0 mg/dL (18.0-45.0) L 10/03/16 03:30 Vitamin B12 1557 pg/mL (213-816) H 09/27/16 08:56 Urine Clarity Turbid (Clear) A 09/29/16 20:00 Urine Protein 30 mg/dL (Neg-Trace) H 09/29/16 20:00 Urine Glucose (UA) 100 mg/dL (Normal) H 09/29/16 20:00 Urine Ketones Trace mg/dL (Negative) H 09/29/16 20:00 Urine Bilirubin Small (Negative) H 09/29/16 20:00 Ur Leukocyte Esterase Moderate (Negative) H 09/29/16 20:00 Urine Microscopic WBC 5-15 per hpf (0-3) H 09/29/16 20:00 Ur Squamous Epith Cells Many per lpf (None-Few) H 09/29/16 20:00 Urine Bacteria Many per hpf (None-Few) H 09/29/16 20:00 Urine Yeast Few per hpf (None Seen) H 09/29/16 20:00 Vancomycin Trough 20.4 mcg/mL (10-20) H* 10/03/16 03:30 Exam: 71 year old male patient appearing chronically ill. He is alert to name and is able to have short conversation with his spouse. - Eye Eye exam: Present: PERRL - ENT ENT exam: Present: mucous membranes moist - Respiratory Respiratory exam: Absent: accessory muscle use, respiratory distress - Cardiovascular Cardiovascular exam: Present: RRR - GI/Abdominal GI/Abdominal exam: Absent: tenderness - Rectal Additional comments: fecal management system intact - Neurological Exam Neurological exam: Present: alert - Psychiatric Psychiatric exam: Absent: agitated, anxious - Skin Skin exam: Present: pallor Palliative Quality Palliative Quality: Screen for Code Status: Yes, Screen for Goals of Care: Yes, Screen for Pain: Yes, If Pain Regimen Started, Initiate Bowel Regimen: NA ( diarrhea), Screen for Nausea/Vomitting: Yes - Labs CBC & Chem 7: 10/03/16 03:30 10/03/16 03:30 Labs: Laboratory Results - last 24 hr 10/02/16 10/03/16 10/03/16 15:52 03:30 03:30 WBC 3.7 L RBC 4.14 L Hgb 10.1 L Hct 32.8 L MCV 79.2 L MCH 24.4 L MCHC 30.8 L RDW 31.9 H Plt Count 114 L MPV 9.3 L Seg Neutrophils % 66.0 Band Neutrophils % 8.0 H Lymphocytes % 12.0 Monocytes % 4.0 Myelocytes % 8.0 H Promyelocytes % 2.0 H Neutrophils # 2.7 Lymphocytes # 0.4 L Monocytes # 0.2 Nucleated RBCs/100 WBC 0.5 H Toxic Granulation Present A Platelet Estimate Slight Decrease L Large Platelets Present A Polychromasia 1+ A Anisocytosis 2+ A Microcytosis Present A Macrocytosis Present A Ovalocytes 1+ A Lucas Cells 2+ A VBG pH VBG pCO2 VBG pO2 VBG HCO3 Sodium 137 Potassium 3.5 Chloride 117 H Carbon Dioxide 8 L* BUN 56 H Creatinine 3.75 H Est GFR ( Amer) 20 L Est GFR (Non-Af Amer) 16 L BUN/Creatinine Ratio 15 Glucose 108 H Calculated Osmolality 300 Calcium 7.8 L Phosphorus 6.7 H Magnesium 1.9 Albumin 1.6 L Prealbumin Stl C. cayetanensis PCR Not detected Stool Rotavirus A PCR Not detected Stl Adenov F 40/41 PCR Not detected Stool Astrovirus (PCR) Not detected Stool Campylobacter PCR Not detected Stl C. diff Tox A/B PCR Not detected Stool Cryptosporidium PCR Not detected Stl Sh Tox Pr E STEC PCR Not detected Stool E coli O157 PCR Not detected Stl Enterotoxigenic E PCR Not detected Stool EPEC (PCR) Not detected Stool EAEC (PCR) Not detected Stl E. histolytica PCR Not detected Stool Giardia Lamblia PCR Not detected Stool Salmonella PCR Not detected Stool Sapovirus (PCR) Not detected Stl P. shigelloides PCR Not detected Stl Shigella/EIEC PCR Not detected St Y.enterocolitica PCR Not detected Stool Vibrio (PCR) Not detected Stl Vibrio cholerae PCR Not detected Stl Norovirus GI/GII PCR Not detected Stl GI Panel (PCR) Com See below Vancomycin Trough 10/03/16 10/03/16 10/03/16 03:30 03:30 08:20 WBC RBC Hgb Hct MCV MCH MCHC RDW Plt Count MPV Seg Neutrophils % Band Neutrophils % Lymphocytes % Monocytes % Myelocytes % Promyelocytes % Neutrophils # Lymphocytes # Monocytes # Nucleated RBCs/100 WBC Toxic Granulation Platelet Estimate Large Platelets Polychromasia Anisocytosis Microcytosis Macrocytosis Ovalocytes Lucas Cells VBG pH 7.11 L* VBG pCO2 29 L VBG pO2 143 H VBG HCO3 9.2 L Sodium Potassium Chloride Carbon Dioxide BUN Creatinine Est GFR ( Amer) Est GFR (Non-Af Amer) BUN/Creatinine Ratio Glucose Calculated Osmolality Calcium Phosphorus Magnesium Albumin Prealbumin 7.0 L Stl C. cayetanensis PCR Stool Rotavirus A PCR Stl Adenov F 40/41 PCR Stool Astrovirus (PCR) Stool Campylobacter PCR Stl C. diff Tox A/B PCR Stool Cryptosporidium PCR Stl Sh Tox Pr E STEC PCR Stool E coli O157 PCR Stl Enterotoxigenic E PCR Stool EPEC (PCR) Stool EAEC (PCR) Stl E. histolytica PCR Stool Giardia Lamblia PCR Stool Salmonella PCR Stool Sapovirus (PCR) Stl P. shigelloides PCR Stl Shigella/EIEC PCR St Y.enterocolitica PCR Stool Vibrio (PCR) Stl Vibrio cholerae PCR Stl Norovirus GI/GII PCR Stl GI Panel (PCR) Com Vancomycin Trough 20.4 H* - Impressions Impressions Abdomen/Pelvis CT 09/30/16 08:03 IMPRESSION: 1. Right lower lobe pneumonia. 2. Interval appearance since July 2016 of acute to subacute fractures involving the right 8th and 9th ribs. Correlate with focal trauma. Pathologic fractures cannot be excluded. 3. New wall thickening of the presumed small bowel which is nonspecific and may represent enteritis. No obstruction. 4. New mild right hydronephrosis secondary to tethering of the mid right ureter by scarring/carcinomatosis. 5. Progression of metastatic disease with multiple new pulmonary nodules, however, the larger nodules seen on CT dated 08/05/2016 are not significantly changed in size. 6. Grossly unchanged appearance of multifocal liver metastases. 7. Improved but persistent peritoneal carcinomatosis. 8. Sclerosis of the left superior pubic ramus corresponding to the hypermetabolic activity on prior PET/CT. Finding likely represents response to treatment. 9. Fluid throughout the remaining colon, compatible with diarrhea. D/ / 09/30/2016 12:27:20 Radha Roberts MD / mi Interpreting Provider: Radha Roberts MD Chest CT 09/30/16 08:03 IMPRESSION: 1. Right lower lobe pneumonia. 2. Interval appearance since July 2016 of acute to subacute fractures involving the right 8th and 9th ribs. Correlate with focal trauma. Pathologic fractures cannot be excluded. 3. New wall thickening of the presumed small bowel which is nonspecific and may represent enteritis. No obstruction. 4. New mild right hydronephrosis secondary to tethering of the mid right ureter by scarring/carcinomatosis. 5. Progression of metastatic disease with multiple new pulmonary nodules, however, the larger nodules seen on CT dated 08/05/2016 are not significantly changed in size. 6. Grossly unchanged appearance of multifocal liver metastases. 7. Improved but persistent peritoneal carcinomatosis. 8. Sclerosis of the left superior pubic ramus corresponding to the hypermetabolic activity on prior PET/CT. Finding likely represents response to treatment. 9. Fluid throughout the remaining colon, compatible with diarrhea. D/ / 09/30/2016 12:27:20 Radha Roberts MD / mi Interpreting Provider: Radha Roberts MD - ABG Interpretation ABG results: PT/INR, D-dimer PT 15.2 Seconds (9.4-12.1) H 09/30/16 08:06 Consult Discharge Plan - Plan Referrals: Esdras Jacob MD [Primary Care Provider] - (Web Requested an appointment)
[2016-10-03] MEDS ORDERED: Mag Hydrox/Al Hydrox/Simeth 30 ML UDC PO PRN (14:47)
[2016-10-03] MEDS ORDERED: Acetaminophen 325 MG TABLET PO PRN (14:47)
[2016-10-03] MEDS ORDERED: Magic Mouthwash 10 ML UD Cup PO PRN (14:47)
[2016-10-03] MEDS ORDERED: Ondansetron 4 MG/2 ML VIAL IVP PRN (14:47)
[2016-10-03] MEDS ORDERED: *HR* HYDROcodone/Acet 5/325 mg TABLET PO PRN (14:47)
[2016-10-03] MEDS ORDERED: Famotidine 20 MG TABLET PO SCH (21:00)
[2016-10-03] MEDS ORDERED: Mirtazapine 15 MG TABLET PO SCH (21:00)
[2016-10-03] MEDS: Beer can PO SCH (23:46)
[2016-10-04] MEDS: Hydrocortisone Sodium Succ 100 MG/2 ML VIAL IVP SCH ×2 (00:59→08:08)
[2016-10-04] MEDS: Beer can PO SCH ×2 (08:04→11:59)
[2016-10-04] MEDS: Lactobacillus 1 EACH CAP.SPRINK PO SCH ×2 (08:04→11:59)
[2016-10-04] MEDS: Carbidopa/Levodopa ER 50/200 TABLET PO SCH (08:05)
[2016-10-04] MEDS: rOPINIRole 0.25 MG TABLET PO SCH (08:05)
[2016-10-04] MEDS: *HR* FentaNYL (PF) 100 MCG/2 ML VIAL IVP PRN ×3 (09:11→11:52)
--- NOTE | 2016-10-04 10:33 | Palliative Progress Note ---
Date of Encounter: 10/04/16 Time of Encounter: 09:15 - Assessment and plan (1) Counseling regarding advanced care planning and goals of care Current Visit: Yes Status: Acute Assessment and plan: Goals of care discussion with the patient's spouse and daughter yesterday. Goals of care changed to DNR-CC. Family has a goal of comfort care and understand that his life may be limited. Discussed plan of care, comfort measures. Mr. Collado was transferred to the palliative care unit yesterday. agricultural services director will follow for discharge needs. Titrate pain medications for comfort. (2) Severe sepsis Current Visit: Yes Status: Acute Assessment and plan: Will discontinue further aggressive treatment. (3) Cancer related pain Current Visit: No Status: Acute Assessment and plan: Due to renal function, avoid Morphine. [place] PRN as long as he is able to swallow medications. Fentanyl 25mcg IV every hour as needed if unable to take oral medications. Consider starting Fentanyl patch if the PRN usage is high enough. (4) Protein calorie malnutrition Current Visit: Yes Status: Acute Assessment and plan: Goal is comfort feeding. Patient requesting Pepsi and oatmeal. Family assisting with feeding. Qualifiers: Protein-calorie malnutrition severity: unspecified severity Qualified Code( s): E46 - Unspecified protein-calorie malnutrition - Time Spent With Patient Total time spent is greater than 50% in coordination of care (as documented) at patient's floor/unit and/or counseling patient: - Subjective Interval history: Mr. Collado is lying in bed with family at bedside. He has been moaning and increasingly more restless. RN recently medicated. Family is feeding patient. - Constitutional Vitals: Abnormal lab results WBC 3.7 K/mcL (4.3-11.1) L 10/03/16 03:30 RBC 4.14 M/mcL (4.19-5.50) L 10/03/16 03:30 Hgb 10.1 g/dL (12.9-16.9) L 10/03/16 03:30 Hct 32.8 % (37.5-50.1) L 10/03/16 03:30 MCV 79.2 fL (83.0-100.0) L 10/03/16 03:30 MCH 24.4 pg (28.0-33.3) L 10/03/16 03:30 MCHC 30.8 g/dL (31.6-35.5) L 10/03/16 03:30 RDW 31.9 % (11.5-14.5) H 10/03/16 03:30 Plt Count 114 K/mcL (140-400) L 10/03/16 03:30 MPV 9.3 fL (9.4-12.4) L 10/03/16 03:30 Reticulocyte # 0.04 M/mcL (0.05-0.10) L 09/27/16 08:56 Immature Gran % 15.4 % (0-4) H 09/30/16 08:06 Band Neutrophils % 8.0 % (0-4) H 10/03/16 03:30 Myelocytes % 8.0 % (0) H 10/03/16 03:30 Promyelocytes % 2.0 % (0) H 10/03/16 03:30 Lymphocytes # 0.4 K/mcL (0.6-4.6) L 10/03/16 03:30 Nucleated RBCs/100 WBC 0.5 /100 WBC (0) H 10/03/16 03:30 Toxic Granulation Present (Not Present) A 10/03/16 03:30 Platelet Estimate Slight Decrease (Normal) L 10/03/16 03:30 Clumped Platelets Few (Not Present) A 09/27/16 00:52 Large Platelets Present (Not Present) A 10/03/16 03:30 Polychromasia 1+ (Not Present) A 10/03/16 03:30 Anisocytosis 2+ (Not Present) A 10/03/16 03:30 Microcytosis Present (Not Present) A 10/03/16 03:30 Macrocytosis Present (Not Present) A 10/03/16 03:30 Ovalocytes 1+ (Not Present) A 10/03/16 03:30 [place] Cells 2+ (Not Present) A 10/03/16 03:30 Acanthocytes (Spur) 1+ (Not Present) A 09/27/16 00:52 Schistocytes 1+ (Not Present) A 09/28/16 05:09 Percent Retic 0.9 % (1.6-2.8) L 09/27/16 08:56 PT 15.2 Seconds (9.4-12.1) H 09/30/16 08:06 VBG pH 7.11 pH Units (7.32-7.42) L* 10/03/16 08:20 VBG pCO2 29 mmHg (41-51) L 10/03/16 08:20 VBG pO2 143 mmHg (25-40) H 10/03/16 08:20 VBG HCO3 9.2 mEq/L (21-27) L 10/03/16 08:20 Chloride 117 mEq/L (98-109) H 10/03/16 03:30 Carbon Dioxide 8 mEq/L (19-29) L* 10/03/16 03:30 BUN 56 mg/dL (8-26) H 10/03/16 03:30 Creatinine 3.75 mg/dL (0.72-1.25) H 10/03/16 03:30 Est GFR ( Amer) 20 (> 60) L 10/03/16 03:30 Est GFR (Non-Af Amer) 16 (> 60) L 10/03/16 03:30 Glucose 108 mg/dL (70-99) H 10/03/16 03:30 POC Glucose 93 (58-89) H 09/30/16 18:36 Calcium 7.8 mg/dL (8.6-10.8) L 10/03/16 03:30 Phosphorus 6.7 mg/dL (2.3-4.7) H 10/03/16 03:30 Iron 27 mcg/dL (65-175) L 09/27/16 08:56 % Saturation 15 % (20-55) L 09/27/16 08:56 Transferrin 129 mg/dL (174-364) L 09/27/16 08:56 Ferritin 900 ng/ml (22-275) H 09/27/16 08:56 Serum Total Protein 4.4 g/dL (6.0-8.3) L 09/30/16 08:06 Albumin 1.6 g/dL (3.5-5.0) L 10/03/16 03:30 Albumin/Globulin Ratio 0.7 (1.1-2.2) L 09/30/16 08:06 Prealbumin 7.0 mg/dL (18.0-45.0) L 10/03/16 03:30 Vitamin B12 1557 pg/mL (213-816) H 09/27/16 08:56 Urine Clarity Turbid (Clear) A 09/29/16 20:00 Urine Protein 30 mg/dL (Neg-Trace) H 09/29/16 20:00 Urine Glucose (UA) 100 mg/dL (Normal) H 09/29/16 20:00 Urine Ketones Trace mg/dL (Negative) H 09/29/16 20:00 Urine Bilirubin Small (Negative) H 09/29/16 20:00 Ur Leukocyte Esterase Moderate (Negative) H 09/29/16 20:00 Urine Microscopic WBC 5-15 per hpf (0-3) H 09/29/16 20:00 Ur Squamous Epith Cells Many per lpf (None-Few) H 09/29/16 20:00 Urine Bacteria Many per hpf (None-Few) H 09/29/16 20:00 Urine Yeast Few per hpf (None Seen) H 09/29/16 20:00 Vancomycin Trough 20.4 mcg/mL (10-20) H* 10/03/16 03:30 General appearance: Present: no acute distress Exam: 71 year old male, opens eyes, but does not follow commands. Family at bedside feeding patient small amounts. - ENT ENT exam: Present: mucous membranes dry - Respiratory Respiratory exam: Present: CTAB. Absent: accessory muscle use, respiratory distress Additional comments: respirations shallow. - Cardiovascular Cardiovascular exam: Present: RRR. Absent: tachycardia - GI/Abdominal GI/Abdominal exam: Present: soft. Absent: tenderness - Rectal Additional comments: fecal management system intact with liquid stool. - Extremities Exam Extremities exam: Present: normal inspection. Absent: pedal edema - Neurological Exam Neurological exam: Present: alert. Absent: oriented X3 - Psychiatric Psychiatric exam: Present: anxious (restless at times) - Skin Skin exam: Present: pallor Palliative Quality Palliative Quality: Screen for Code Status: Yes, Screen for Goals of Care: Yes, Screen for Pain: Yes, If Pain Regimen Started, Initiate Bowel Regimen: NA ( diarrhea), Screen for Nausea/Vomitting: Yes Code Status: 10/03/16 14:22 Resuscitation Status: Active [RES] Routine Comment: Resuscitation Status: DNR-Comfort Care - Labs CBC & Chem 7: 10/03/16 03:30 10/03/16 03:30 - ABG Interpretation ABG results: PT/INR, D-dimer PT 15.2 Seconds (9.4-12.1) H 09/30/16 08:06 Consult Discharge Plan - Plan Referrals: Esdras Jacob MD [Primary Care Provider] - (Web Requested an appointment)
[2016-10-04 10:55] VITALS: BP 65/39
[2016-10-04] MEDS ORDERED: *HR* LORazepam 2 MG/ML VIAL IVP PRN (12:09)
--- NOTE | 2016-10-04 15:36 | Discharge Summary ---
Date of Encounter: 10/04/16 Time of Encounter: 15:33 - Discharge Diagnosis (1) Septic shock Priority: Primary Status: Acute (2) Pneumonia Priority: Primary Status: Acute Qualifiers: Qualified Code(s): J18.9 - Pneumonia, unspecified organism (3) History of colon cancer Priority: Primary Status: Chronic (4) History of cancer metastatic to brain Priority: Primary Status: Chronic (5) Diarrhea Priority: Secondary Status: Acute Qualifiers: Diarrhea type: unspecified type Qualified Code(s): R19.7 - Diarrhea, unspecified (6) CLIF (acute kidney injury) Priority: Secondary Status: Acute (7) Unsteady gait Priority: Secondary Status: Acute (8) Leukopenia Priority: Secondary Status: Acute Qualifiers: Leukopenia type: neutropenia Neutropenia type: secondary to cancer chemotherapy Qualified Code(s): D70.1 - Agranulocytosis secondary to cancer chemotherapy (9) Parkinsons disease Priority: Secondary Status: Chronic - Discharge Medications Home Medications: Carbidopa/Levodopa ER 50/200 [Sinemet ER 50-200 TAB] 1 each PO TID 04/23/16 [ History] Ropinirole HCl [Requip] 0.5 mg PO TID 04/23/16 [History] Ondansetron HCl 4 mg PO Q8HR PRN 07/16/16 [History] Sennosides/Docusate Sodium [Senna-Docusate Sodium Tablet] 1 each PO DAILY PRN [History] Loperamide [Imodium] 2 mg PO AD PRN #30 capsule 08/04/16 [Rx] Magic Mouthwash 5 ml PO Q4H PRN #240 ml 08/04/16 [Rx] Acetaminophen [Pain Relief] 2 tab PO Q4H PRN 08/25/16 [History] Dexamethasone [Decadron] 4 mg PO DAILY 08/25/16 [History] Famotidine [Heartburn Prevention] 20 mg PO HS 08/25/16 [History] Ferrous Sulfate [Iron] 325 mg PO DAILY 08/25/16 [History] Folic Acid 1 mg PO DAILY 08/25/16 [History] Capecitabine [Xeloda] 3 tab PO BID #84 tablet 09/04/16 [Rx] Prochlorperazine Maleate [Compazine] 10 mg PO Q8HR PRN 09/26/16 [History] Allergies/Adverse Reactions: Allergies No Known Allergies Allergy (Verified 08/25/16 08:25) Procedures/tests Complete & Pending: Procedures Performed prior 72 hours Category Date Time Status ECG 12 lead ECG [ECG] Routine Y 10/03/16 08:12 Completed Date of admission: 09/30/16 07:45 Primary care physician: Esdras Jacob MD Consults: Channel Marketing Coordinator Dr. Isaac Urologist: Dr. Antonio Martini Onc : Dr. Jones - Patient Status Disposition: - Discharge Instructions Hospital course: Mr. 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 In July patient was seen by our oncology group and was sent to [place] due to concern of impending hydrocephaly. While at [place] he underwent radiation treatment as well and was initiated on chemotherapy. He was discharged home and was receiving physical therapy at home. With that he was doing well but on physical therapy was completed patient began to decline. Pt was admitted here for his severe physical deconditioning due to metastatic colon cancer. He became severely immunocompromised and pancytopenic developed severe sepsis with multi lobular pneumonia. Pt went into septic shock here, he was transferred to ICU and placed on broad spec IV Abx Zosyn and Vancomycin. He did required vasopressors too. Yesterday pt's family had a meeting with university services program associate Dr. Isaac and [facility] care team , requested for hospice care. They did not wanted to continue any further active medical care. So pt was transferred to palliative care unit last night. he was started on IV fentanyl PRN and Ativan PRN for comfort care. This morning when I examined him, he was semi alert, did c/o some headache and shortness of breath. At that time he was already in shallow breathing. This afternoon at 1352 pt was , and nurse pronounced him. Please review our progress notes and consult notes for further details about his hospital course. - Time Spent with Patient Total time spent providing and/or coordinating discharge services: - Constitutional Vitals: Temp Pulse Resp BP Pulse Ox 97.5 F L 99 24 65/39 97 10/04/16 10:53 10/04/16 10:53 10/04/16 10:53 10/04/16 10:53 10/04/16 02:01
--- NOTE | 2016-10-05 15:10 | Electrocardiograph Report ---
[address] [address] Test Date: 2016-10-03 Pat Name: Jorge L Collado Department: 109 Room: 2A45 Gender: M Drum Filler: LIDA : 1945 Requested By: Ayleen Winter Order Number: [id number] Reading MD: Marilyn Monteiro Measurements Intervals [place] Rate: 138 P: RI: 0 QRS: 43 QRSD: 112 T: -60 QT: 270 QTc: 350 Interpretive Statements TACHYCARDIA ARTIFACT LIMITS INTERPRETATION Electronically Signed On 10-04-2016 12:12:15 EDT by Marilyn Monteiro
== END 2016-10-04 17:08 | disposition expired | DRG 871 ==
LOC: EMEROO 12:55 → 3NENU 12:55 → 3BNU 09-27 17:02 → ICNU 09-30 18:59 → 2ANU 10-03 16:43
PROVIDERS: ADMIT Family Medicine; ATTEND Internal Medicine